=== PATIENT | male | born 1985 | race Caucasian/White ===

== ENCOUNTER 2021-01-19 13:12 | Outpatient (REF) | payer MEDICARE, MEDICAID, SELFPAY ==
[2021-01-19 15:49] LABS: MANUAL DIFF FLAG NO
[2021-01-19 15:53] LABS: Basophils Percent Auto 0.7 % (0-2); Eosinophils Absolute Auto 0.1 X10*3/uL (0.0-0.4); Eosinophils Percent Auto 1.4 % (0-4); Hematocrit 42.8 % (42-52); Hemoglobin 14.4 g/dl (14.0-18.0); Lymphocytes Absolute Auto 2.3 X10*3/uL (1.2-4.9); Lymphocytes Percent Auto 54.1 % (20-40); Mean Corpuscular HGB Conc 33.6 g/dl (31.0-36.0); Mean Corpuscular Hemoglobin 29.9 pg (27.0-33.0); Mean Platelet Volume 9.4 fL (9.4-12.4); Monocytes Absolute Auto 0.4 X10*3/uL (0.1-1.2); Monocytes Percent Auto 9.1 % (2-11); Neutrophils Absolute Auto 1.4 X10*3/uL (2.0-8.3); Neutrophils Percent Auto 34.7 % (45-73); Platelet Count 208 X10*3/uL (160-400); Red Blood Count 4.81 X10*6/uL (4.60-5.80); Red Cell Distribution Width 11.9 % (11.0-16.0); White Blood Count 4.2 X10*3/uL (4.8-10.8)
[2021-01-19 16:20] LABS: Alanine Aminotransferase 17 U/L (0-40); Alkaline Phosphatase 56 U/L (39-117); Anion Gap 14 (12-20); Aspartate Amino Transferase 18 U/L (5-37); Bilirubin Total 1.4 mg/dL (0.0-1.0); Blood Urea Nitrogen 13 mg/dL (9-16); Calcium 9.3 mg/dL (8.4-10.2); Carbon Dioxide 28 mmol/L (22-29); Chloride 103 mmol/L (96-108); Estimated Glomerular Filt Rate > 60; Glucose Random 88 mg/dL (60-115); Potassium 4.3 mmol/L (3.3-5.1); Sodium 141 mmol/L (135-145)
[2021-01-19 16:39] LABS: Thyroid Stimulating Hormone 0.97 uIU/mL (0.32-4.0)
[2021-01-20 14:16] LABS: H Pylori Breath Test NOT DETECTED (NOT DETECTED)
[2021-01-22 21:47] LABS: Transglutaminase IgA 1 U/mL
[2021-01-27 21:52] LABS: Endomysial IgA Antibody Negative (Negative)
== END 2021-01-19 13:13 | disposition home or self-care (01) ==
LOC: HO.LAB 13:12
PROVIDERS: Visit Provider Physician Assistant
DX: R19.7 Diarrhea, unspecified (principal); R74.01 Elevation of levels of liver transaminase levels; R10.11 Right upper quadrant pain; R11.0 Nausea; K58.9 Irritable bowel syndrome, unspecified; K59.09 Other constipation; F17.200 Nicotine dependence, unspecified, uncomplicated
CPT/HCPCS: 36415; 80053; 83013; 83516; 84443; 85025; 86255; 86256; 99212

== ENCOUNTER → 2021-02-24 09:21 | Outpatient (BNVA) | payer MEDICARE, MEDICAID, SELFPAY | PROVIDERS: PCP Internal Medicine; Visit Provider Physician Assistant | DX: Z13.89 Encounter for screening for other disorder (principal) | CPT/HCPCS: Q3014 ==

== ENCOUNTER 2021-05-28 09:22 | Outpatient (REF) | payer OTHER, SELFPAY ==
--- NOTE | ~2021-05-28 | FL_ITS ---
EXAMINATION: FL BARIUM SWALLOW CLINICAL INFORMATION: Nausea. COMPARISON: None TECHNIQUE: Barium swallow examination was performed using fluoroscopic evaluation in addition to multiple fluoroscopic spot views. The patient was imaged both upright and prone and using both thick and thin sulfate along with effervescent granules. Fluoroscopy time: 2.3 minutes DAP: 8.142 Gycm2 Images: 67 FINDINGS: Following oral administration of thick barium and barium-coated turkey in the upright view, there is normal propagation of the bolus from the oral cavity through the pharynx, esophagus into the stomach without any evidence of obstruction, narrowing or stricture. No retention of barium is seen in the valleculae or piriform sinuses. On oral administration of thin barium in the prone lying position, there is good distention of the esophagus without any intraluminal filling defect. There is a small hiatal hernia with mild gastroesophageal reflux into the distal esophagus. FL/FL barium swallow IMPRESSION: Small hiatal hernia with mild gastroesophageal reflux. Otherwise unremarkable barium swallow.
[2021-05-28 10:37] LABS: Basophils Percent Auto 0.5 % (0-2); Eosinophils Percent Auto 1.1 % (0-4); Hematocrit 43.7 % (42-52); Hemoglobin 15.4 g/dl (14.0-18.0); Lymphocytes Absolute Auto 2.3 X10*3/uL (1.2-4.9); Lymphocytes Percent Auto 61.6 % (20-40); MANUAL DIFF FLAG SCAN; Mean Corpuscular HGB Conc 35.2 g/dl (31.0-36.0); Mean Corpuscular Hemoglobin 30.5 pg (27.0-33.0); Mean Corpuscular Volume 86.5 fL (80-98); Mean Platelet Volume 9.3 fL (9.4-12.4); Monocytes Absolute Auto 0.4 X10*3/uL (0.1-1.2); Monocytes Percent Auto 9.5 % (2-11); Neutrophils Percent Auto 27.3 % (45-73); Platelet Count 199 X10*3/uL (160-400); Red Blood Count 5.05 X10*6/uL (4.60-5.80); Red Cell Distribution Width 11.9 % (11.0-16.0); SCAN SMEAR FLAG 1; White Blood Count 3.8 X10*3/uL (4.8-10.8)
[2021-05-28 10:45] LABS: Ammonia 33 umol/L (13-55)
[2021-05-28 10:54] LABS: Alanine Aminotransferase 30 U/L (0-40); Alkaline Phosphatase 47 U/L (39-117); Anion Gap 14 (12-20); Aspartate Amino Transferase 22 U/L (5-37); Bilirubin Total 1.1 mg/dL (0.0-1.0); Blood Urea Nitrogen 8 mg/dL (9-16); Calcium 9.9 mg/dL (8.4-10.2); Carbon Dioxide 27 mmol/L (22-29); Chloride 103 mmol/L (96-108); Estimated Glomerular Filt Rate > 60; Glucose Random 89 mg/dL (60-115); Potassium 5.1 mmol/L (3.3-5.1); Sodium 139 mmol/L (135-145); Total Protein 6.9 g/dL (6.5-8.0)
[2021-05-28 10:55] LABS: SLIDE REVIEW VERIFIED
[2021-05-28 10:58] LABS: Valproate 74.8 mcg/mL (50.0-100.0)
== END 2021-05-28 09:23 | disposition home or self-care (01) ==
LOC: HO.XRAY 09:22
PROVIDERS: Referring Provider Physician Assistant; Visit Provider Psychiatry & Neurology Child & Adolescent Psychiatry
DX: R11.0 Nausea (principal); K21.9 Gastro-esophageal reflux disease without esophagitis
CPT/HCPCS: 36415; 74220; 80053; 80164; 82140; 85025

== ENCOUNTER → 2021-06-01 14:13 | Outpatient (BNVA) | payer OTHER, SELFPAY | PROVIDERS: Visit Provider Physician Assistant | DX: K21.9 Gastro-esophageal reflux disease without esophagitis (principal); K58.9 Irritable bowel syndrome, unspecified | CPT/HCPCS: Q3014 ==

== ENCOUNTER 2021-06-08 09:45 | Outpatient (REF) | payer OTHER, SELFPAY ==
[2021-06-08 10:22] LABS: MANUAL DIFF FLAG NO
[2021-06-08 10:26] LABS: Basophils Percent Auto 0.5 % (0-2); Eosinophils Absolute Auto 0.1 X10*3/uL (0.0-0.4); Eosinophils Percent Auto 1.4 % (0-4); Hematocrit 39.8 % (42-52); Hemoglobin 14.1 g/dl (14.0-18.0); Imm Gran Abs Auto 0.02 X10*3/uL (0.00-0.03); Imm Gran Pct Auto 0.3 % (0.0-0.4); Lymphocytes Absolute Auto 3.3 X10*3/uL (1.2-4.9); Lymphocytes Percent Auto 55.6 % (20-40); Mean Corpuscular HGB Conc 35.4 g/dl (31.0-36.0); Mean Corpuscular Hemoglobin 30.5 pg (27.0-33.0); Mean Platelet Volume 9.3 fL (9.4-12.4); Monocytes Absolute Auto 0.6 X10*3/uL (0.1-1.2); Monocytes Percent Auto 9.6 % (2-11); Neutrophils Absolute Auto 1.9 X10*3/uL (2.0-8.3); Neutrophils Percent Auto 32.6 % (45-73); Platelet Count 201 X10*3/uL (160-400); Red Blood Count 4.63 X10*6/uL (4.60-5.80); Red Cell Distribution Width 11.5 % (11.0-16.0); White Blood Count 5.9 X10*3/uL (4.8-10.8)
== END 2021-06-08 09:46 | disposition home or self-care (01) ==
LOC: HO.LAB 09:45
PROVIDERS: Ophthalmology; PCP Internal Medicine; Visit Provider Psychiatry & Neurology Child & Adolescent Psychiatry
DX: F31.2 Bipolar disorder, current episode manic severe with psychotic features (principal)
CPT/HCPCS: 36415; 85025

== ENCOUNTER 2021-07-23 14:41 | Outpatient (REF) | payer OTHER, SELFPAY ==
[2021-07-23 16:03] LABS: MANUAL DIFF FLAG NO
[2021-07-23 16:06] LABS: Ammonia 25 umol/L (13-55)
[2021-07-23 16:14] LABS: Estimated Average Glucose 91 mg/dL; Hemoglobin A1c % 4.8 %
[2021-07-23 16:22] LABS: Alanine Aminotransferase 30 U/L (0-40); Albumin Level 4.6 g/dL (3.5-5.0); Alkaline Phosphatase 52 U/L (39-117); Anion Gap 12 (12-20); Aspartate Amino Transferase 19 U/L (5-37); Bilirubin Total 1.6 mg/dL (0.0-1.0); Blood Urea Nitrogen 12 mg/dL (9-16); Calcium 9.6 mg/dL (8.4-10.2); Carbon Dioxide 28 mmol/L (22-29); Chloride 108 mmol/L (96-108); Estimated Glomerular Filt Rate > 60; Glucose Random 99 mg/dL (60-115); Potassium 4.8 mmol/L (3.3-5.1); Sodium 143 mmol/L (135-145); Total Protein 6.5 g/dL (6.5-8.0)
[2021-07-23 16:27] LABS: Eosinophils Absolute Auto 0.1 X10*3/uL (0.0-0.4); Eosinophils Percent Auto 2.3 % (0-4); Hematocrit 45.1 % (42-52); Hemoglobin 15.1 g/dl (14.0-18.0); Lymphocytes Absolute Auto 1.7 X10*3/uL (1.2-4.9); Lymphocytes Percent Auto 43.1 % (20-40); Mean Corpuscular HGB Conc 33.5 g/dl (31.0-36.0); Mean Corpuscular Hemoglobin 30.6 pg (27.0-33.0); Mean Corpuscular Volume 91.5 fL (80-98); Mean Platelet Volume 9.4 fL (9.4-12.4); Monocytes Absolute Auto 0.4 X10*3/uL (0.1-1.2); Monocytes Percent Auto 10.3 % (2-11); Neutrophils Absolute Auto 1.7 X10*3/uL (2.0-8.3); Neutrophils Percent Auto 43.3 % (45-73); Platelet Count 219 X10*3/uL (160-400); Red Blood Count 4.93 X10*6/uL (4.60-5.80); Red Cell Distribution Width 11.9 % (11.0-16.0)
[2021-07-23 16:33] LABS: Valproate < 2.0 mcg/mL (50.0-100.0)
== END 2021-07-23 14:42 | disposition home or self-care (01) ==
LOC: HO.LAB 14:41
PROVIDERS: PCP Internal Medicine; Visit Provider Psychiatry & Neurology Child & Adolescent Psychiatry
DX: F31.2 Bipolar disorder, current episode manic severe with psychotic features (principal); Z79.899 Other long term (current) drug therapy
CPT/HCPCS: 36415; 80053; 80164; 82140; 83036; 85025

== ENCOUNTER → 2022-04-25 13:00 | Outpatient (BNVA) | payer OTHER, SELFPAY | PROVIDERS: PCP Internal Medicine; Visit Provider Nurse Practitioner Family | DX: G47.20 Circadian rhythm sleep disorder, unspecified type (principal); F31.9 Bipolar disorder, unspecified | CPT/HCPCS: 99202 ==

== ENCOUNTER 2023-01-11 09:14 | Outpatient (REF) | payer OTHER, SELFPAY ==
[2023-01-11 11:22] LABS: MANUAL DIFF FLAG NO
[2023-01-11 11:45] LABS: Hematocrit 45.3 % (42.0-52.0); Hemoglobin 15.1 g/dl (14.0-18.0); Mean Corpuscular HGB Conc 33.3 g/dl (31.0-36.0); Mean Corpuscular Hemoglobin 29.6 pg (27.0-33.0); Mean Corpuscular Volume 88.8 fL (80.0-98.0); White Blood Count 4.8 X10*3/uL (4.8-10.8)
[2023-01-11 11:46] LABS: Basophils Percent Auto 0.6 % (0-2); Eosinophils Absolute Auto 0.1 X10*3/uL (0.0-0.4); Eosinophils Percent Auto 2.5 % (0-4); Imm Gran Abs Auto 0.01 X10*3/uL (0.00-0.03); Imm Gran Pct Auto 0.2 % (0.0-0.4); Lymphocytes Absolute Auto 2.5 X10*3/uL (1.2-4.9); Lymphocytes Percent Auto 52.2 % (20-40); Mean Platelet Volume 9.7 fL (9.4-12.4); Monocytes Absolute Auto 0.5 X10*3/uL (0.1-1.2); Monocytes Percent Auto 9.6 % (2-11); Neutrophils Absolute Auto 1.7 x10*3/uL (2.0-8.3); Neutrophils Percent Auto 34.9 % (45-73); Platelet Count 223 X10*3/uL (160-400); Red Cell Distribution Width 11.9 % (11.0-16.0)
[2023-01-11 11:58] LABS: Alanine Aminotransferase 23 U/L (0-40); Albumin Level 4.5 g/dL (3.5-5.0); Alkaline Phosphatase 64 U/L (39-117); Anion Gap 10 (12-20); Aspartate Amino Transferase 23 U/L (5-37); Bilirubin Total 1.5 mg/dL (0.0-1.0); Blood Urea Nitrogen 11 mg/dL (9-16); Carbon Dioxide 29 mmol/L (22-29); Chloride 105 mmol/L (96-108); Cholesterol 179 mg/dL; Estimated Glomerular Filt Rate > 60; Glucose Fasting 100 mg/dL (60-99); HDL Cholesterol 60 mg/dL; LDL Cholesterol Calculated 101 mg/dl; Potassium 4.6 mmol/L (3.3-5.1); Sodium 139 mmol/L (135-145); Triglycerides 93 mg/dL
== END 2023-01-11 09:15 | disposition home or self-care (01) ==
LOC: HO.HMGCLDS 09:14
PROVIDERS: PCP Internal Medicine; Visit Provider Internal Medicine
DX: Z00.01 Encounter for general adult medical examination with abnormal findings (principal); D70.9 Neutropenia, unspecified; F31.9 Bipolar disorder, unspecified; G47.9 Sleep disorder, unspecified
CPT/HCPCS: 36415; 80053; 80061; 84443; 85025

== ENCOUNTER 2023-05-24 11:59 | Outpatient (AMB) | payer OTHER, SELFPAY ==
--- NOTE | 2023-05-24 12:09 | MHC.PC.OV ---
Vital Signs 05/24/23 12:10 Height 6 ft Weight 163 lb BMI 22.1 BP 144/78 H Blood Pressure Location Rt brachial Position Sitting Pulse 88 Pulse Source Pulse Oximeter Pulse Oximetry (%) 98 Oxygen Delivery Method Room Air Intake Visit Reasons: pain in hip area on right side Allergies penicillin V Allergy (Unknown, Verified 05/24/23 12:10) anaphylaxis Sulfa (Sulfonamide Antibiotics) Allergy (Unknown, Verified 05/24/23 12:10) fixed drug eruption Medication List - Last Reconciled 05/24/23 by Vipul Duran MD acetaminophen (Tylenol) 325 mg PO QID PRN clonazepam 0.5 mg PO TID PRN [famotidine 10 mg PO DAILY PRN] fluticasone propionate 50 mcg/actuation (Flonase Allergy Relief) 1 spray intranasal DAILY 30 days lactase (Lactaid) 3,000 units PO QID PRN [multivitamin 325 mg PO DAILY] [peppermint oil 200 mg PO DIRECTED] venlafaxine ER 37.5 mg PO DAILY Tobacco use date assessed: 05/24/23 Dental Screening Dental Screen Date: 05/24/23 Did you have a dental visit in the last 12 months?: Yes Did you have a dental problem in the last 6 months where you did not have access to dental care?: No Was dental information given to patient?: No HPI pain in hip area on right side HPI Details Patient is 38-year-old gentlemen who is complaining of pain right side of his lower back off and on when he is more active and then it gets better At this point he does not have any pain. I have ordered physical therapy for him he might benefit from that. He is requesting a refill on Flonase nasal spray which I have sent for him. He is talking about some new procedure about reversible vesectomy with the help of some injectable He will do some research on it and will get back to me [facility] Medical History Deviated septum IBS (irritable bowel syndrome) Nausea Surgical History History of tonsillectomy Family History Paternal Grandfather Prostate cancer Paternal Grandmother Colon cancer Other Mental health disorder Substance use disorder Social History Household Members: None Housing: Apartment Alcohol intake: current Alcohol intake frequency: holidays/special occasions only Patient Tobacco Use Status: Former Tobacco user (20 years ago ) Tobacco use type: Cigarette e-Cigarette/Vaping Use: Never Used Substance Use Type: Marijuana service: No Current occupational status: disabled Cognitive needs: No Hearing needs: No Vision needs: No Questionnaire PHQ-9 Over the last 2 weeks, how often have you been bothered by any of the following problems? 1. Little interest or pleasure in doing things: not at all 2. Feeling down, depressed, or hopeless: several days 3. Trouble falling or staying asleep, or sleeping too much: several days 4. Feeling tired or having little energy: several days 5. Poor appetite or overeating: several days 6. Feeling bad about yourself - or that you are a failure or have let yourself or your family down: not at all 7. Trouble concentrating on things, such as reading the newspaper or watching television: more than half the days 8. Moving or speaking so slowly that other people could have noticed. Or the opposite - being so fidgety or restless that you have been moving around a lot more than usual: more than half the days 9. Thoughts that you would be better off or of hurting yourself in some way: not at all Total score: 8 Depression Screening Interpretation: Negative 09805 - PHQ-9 Billing: Yes Source: Developed by Drs. Reggie Pavon, Edita Casanova, Garcia De Leon and colleagues, with an educational matt from [employer]. Thrive Questionnaire Date Thrive assessed: 05/24/23 I am a: Patient What is your living situation today?: I have a steady place to live Within the past 12 months, did the food you bought not last and you didn't have the money to get more?: Never true Within the past 12 months, did you worry whether your food would run out before you got money to buy more?: Never true Do you have trouble paying for medicines?: No Do you have trouble getting transportation to medical appointments?: No Do you have trouble paying your heating and electricity bill?: No Do you have trouble taking care of your child, family member or friend?: No Do you have trouble with day-to-day activities such as bathing, preparing meals, shopping, managing finances, etc.?: No Are you currently unemployed and looking for a job?: No Are you interested in more education?: No AUDIT C Alcohol Use Questionnaire (AUDIT-C) 1. How often do you have a drink containing alcohol?: 2-4 times a month 2. How many drinks containing alcohol do you have on a typical day when you are drinking?: 1 or 2 3. How often do you have six or more drinks on one occasion?: Never Total Score: 2 Score Reviewed/Action Taken: Yes CRIS-7 AMB Questionnaire CRIS-7 Date CRIS - 7 assessed: 05/24/23 Feeling nervous, anxious, or on edge: 2 = More than half the days Not being able to stop or control worryin = More than half the days Worrying too much about different things: 2 = More than half the days Trouble relaxin = More than half the days Being so restless that it is hard to sit still: 1 = Several days Becoming easily annoyed or irritable: 1 = Several days Feeling afraid as if something awful might happen: 0 = Not at all Total CRIS-7 score (0-4 normal; 5-9 mild; 10-14 moderate; 15-21 severe): 10 Source: Developed by Drs. Reggie Pavon, Edita Casanova, Garcia De Leon and colleagues, with an educational matt from [employer]. CRIS-7 Assessment Billing CRIS-7 Assessment Tool: CRIS-7 Assessment 03469 Review of Systems Const All systems reviewed & are unremarkable except as noted in HPI and below Physical exam (Primary Care) Vital Signs: Last Vital Signs Pulse 88 05/24/23 12:10 BP 144/78 H 05/24/23 12:10 Pulse Ox 98 05/24/23 12:10 Oxygen Delivery Method Room Air 05/24/23 12:10 BMI result Body Mass Index 22.1 Tobacco/Smoking Status: Tobacco use Status Tobacco use date assessed 05/24/23 05/24/23 12:10 Patient Tobacco Use Status Former Tobacco user (20 05/24/23 12:10 years ago ) Tobacco use type Cigarette 05/24/23 12:10 e-Cigarette/Vaping Use Never Used 05/24/23 12:10 PHQ-9: PHQ-9 Score PHQ-9: Total score 8 05/24/23 12:42 Depression Screening Interpretation: Negative Thrive Assessment: Date of Thrive Assessment Date Thrive assessed 05/24/23 05/24/23 12:42 Const General: no acute distress Orientation/consciousness: patient oriented x3 Eyes General: appearance normal, both eyes and all related structures Resp Effort & Inspection: normal respiratory effort and able to speak in complete sentences Auscultation: clear to auscultation bilaterally Back/Spine/Pelvis Back/spine/pelvis image: 1. That is where patient is pointing when he has a pain Neuro General: patient oriented x3 Psych Mental Status: mental status grossly normal Assessment and Plan Assessment & Plan (1) Lower back pain: Code(s): M54.50 - Low back pain, unspecified (2) Chronic nasal congestion: Code(s): R09.81 - Nasal congestion Plan Patient is 38-year-old gentlemen who is complaining of pain right side of his lower back off and on when he is more active and then it gets better At this point he does not have any pain. I have ordered physical therapy for him he might benefit from that. He is requesting a refill on Flonase nasal spray which I have sent for him. He is talking about some new procedure about reversible vesectomy with the help of some injectable He will do some research on it and will get back to me Orders: Orders PT Evaluation and Treatment Today M54.50 - Low back pain, unspecified Medications: Refilled fluticasone propionate 50 mcg/actuation (Flonase Allergy Relief) administer into each nostril 1 spray intranasal DAILY 16 grams 2RF 30 days Coding Level of Care Code Est Pt Level 3 (35378) Diagnoses Lower back pain M54.50 Chronic nasal congestion R09.81 Additional Codes CRIS-7 Assessment Billing - CRIS-7 Assessment Tool: CRIS-7 Assessment 17488 ([id number])
[2023-05-24 12:10] VITALS: BP 144/78; PULSE 88; O2SAT 98; BMI 22.1
== END 2023-05-24 13:27 | disposition home or self-care (01) ==
PROVIDERS: PCP Internal Medicine; Visit Provider Internal Medicine
DX: M54.50 Low back pain, unspecified (principal); R09.81 Nasal congestion
CPT/HCPCS: 99213

== ENCOUNTER 2023-06-27 08:34 | Outpatient (AMB) | payer OTHER, SELFPAY ==
--- NOTE | 2023-06-27 08:37 | MHC.PC.OV ---
Vital Signs 06/27/23 08:38 Height 6 ft Weight 154 lb BMI 20.9 BP 134/82 Blood Pressure Location Lt brachial Position Sitting Pulse 93 Pulse Source Pulse Oximeter Pulse Oximetry (%) 98 Oxygen Delivery Method Room Air Intake Visit Reasons: Medical Concerns Allergies penicillin V Allergy (Unknown, Verified 06/27/23 08:40) anaphylaxis Sulfa (Sulfonamide Antibiotics) Allergy (Unknown, Verified 06/27/23 08:40) fixed drug eruption asprin Adverse Reaction (Intermediate, Uncoded 06/27/23 08:43) Unknown Medication List - Last Reconciled 06/27/23 by Vipul Duran MD acetaminophen (Tylenol) 325 mg PO QID PRN bismuth subsalicylate (Pepto-Bismol) 2 tabs PO Q1H PRN clonazepam 0.5 mg PO TID PRN [famotidine 10 mg PO DAILY PRN] fluticasone propionate 50 mcg/actuation (Flonase Allergy Relief) 1 spray intranasal DAILY 30 days lactase (Lactaid) 3,000 units PO QID PRN [multivitamin 325 mg PO DAILY] [peppermint oil 200 mg PO DIRECTED] venlafaxine ER 37.5 mg PO DAILY Tobacco use date assessed: 06/27/23 Dental Screening Dental Screen Date: 06/27/23 Did you have a dental visit in the last 12 months?: Yes Did you have a dental problem in the last 6 months where you did not have access to dental care?: No Was dental information given to patient?: No HPI Medical Concerns HPI Details Patient is 38-year-old gentlemen with a history of bipolar disorder seeing a psychiatrist It seems to me that patient is having mild symptoms he has pressured speech and also lose train of thought easily. Came in today to talk about his irritable bowel syndrome which has been flaring up, and he does off and on. Currently has no abdominal pain there is no fever no blood in stools. Tells me that his grandmother had colon cancer when she was 68 years old. Also complaining of pain right knee he was playing basketball last night and hurt his right knee. He is requesting a physical therapy referral which I have provided. Patient is complaining of frequency of urination which has been happening for the past 3-4 weeks. There is no blood in urine there is no discharge from the penis. He does have a family history of prostatic hypertrophy in father I have ordered urinalysis to rule out infection if his urine came back clean I have talked to him about Flomax already I will sent that and we will book and other appointment in 2 weeks to see how he is doing. [facility] Medical History Deviated septum IBS (irritable bowel syndrome) Nausea Surgical History History of tonsillectomy Family History Paternal Grandfather Prostate cancer Paternal Grandmother Colon cancer Other Mental health disorder Substance use disorder Social History Household Members: None Housing: Apartment Alcohol intake: current Alcohol intake frequency: holidays/special occasions only Patient Tobacco Use Status: Former Tobacco user (20 years ago ) Tobacco use type: Cigarette e-Cigarette/Vaping Use: Never Used Substance Use Type: Marijuana service: No Current occupational status: disabled Cognitive needs: No Hearing needs: No Vision needs: No Questionnaire Thrive Questionnaire Date Thrive assessed: 05/24/23 AUDIT C Alcohol Use Questionnaire (AUDIT-C) 1. How often do you have a drink containing alcohol?: Monthly or less 2. How many drinks containing alcohol do you have on a typical day when you are drinking?: 1 or 2 3. How often do you have six or more drinks on one occasion?: Never Total Score: 1 Score Reviewed/Action Taken: Yes CRIS-7 AMB Questionnaire CRIS-7 Date CRIS - 7 assessed: 05/24/23 Source: Developed by Drs. Reggie Pavon, Edita Casanova, Garcia De Leon and colleagues, with an educational matt from [employer]. Review of Systems Const Denies chills and Denies fever(s) ENT Denies epistaxis and Denies nasal discharge Card Denies chest pain Resp Denies chest congestion, Denies cough and Denies hemoptysis Skin/Breast Denies rash Neuro Reports no additional complaints Psych Reports no additional complaints Endo Reports no additional complaints Physical exam (Primary Care) Vital Signs: Last Vital Signs Pulse 93 06/27/23 08:38 BP 134/82 06/27/23 08:38 Pulse Ox 98 06/27/23 08:38 Oxygen Delivery Method Room Air 06/27/23 08:38 BMI result Body Mass Index 20.9 Tobacco/Smoking Status: Tobacco use Status Tobacco use date assessed 06/27/23 06/27/23 08:43 Patient Tobacco Use Status Former Tobacco user (20 06/27/23 08:43 years ago ) Tobacco use type Cigarette 06/27/23 08:43 e-Cigarette/Vaping Use Never Used 06/27/23 08:43 Thrive Assessment: Date of Thrive Assessment Date Thrive assessed 05/24/23 06/27/23 08:43 Const General: cooperative, comfortable and no acute distress Orientation/consciousness: patient oriented x3 HENMT Head: Yes normocephalic Eyes General: appearance normal, both eyes and all related structures Neck Neck: Yes supple Resp Effort & Inspection: normal respiratory effort, no cough and no stridor Cardio Rhythm: regular rhythm Heart sounds: S1 normal heart sound present and S2 normal heart sound present GI Other: Abdomen is soft nontender bowel sounds positive Skin General skin exam: turgor normal Neuro General: patient oriented x3, tone normal and moves all extremities Extrem Elbow/forearm/wrist images: 1. Side of pain, range of motion intact no swelling no skin changes Right lower extremity: no edema Left lower extremity: no edema Assessment and Plan Assessment & Plan (1) Frequency of urination: Code(s): R35.0 - Frequency of micturition (2) Knee pain, right: Code(s): M25.561 - Pain in right knee (3) IBS (irritable bowel syndrome): Comment: symptoms and consists Code(s): K58.9 - Irritable bowel syndrome without diarrhea (4) Bipolar disorder: Code(s): F31.9 - Bipolar disorder, unspecified (5) Right knee injury: Code(s): S89.91XA - Unspecified injury of right lower leg, initial encounter Plan Patient is 38-year-old gentlemen with a history of bipolar disorder seeing a psychiatrist It seems to me that patient is having mild symptoms he has pressured speech and also lose train of thought easily. Came in today to talk about his irritable bowel syndrome which has been flaring up, and he does off and on. Currently has no abdominal pain there is no fever no blood in stools. Tells me that his grandmother had colon cancer when she was 68 years old. Also complaining of pain right knee he was playing basketball last night and hurt his right knee. He is requesting a physical therapy referral which I have provided. Patient is complaining of frequency of urination which has been happening for the past 3-4 weeks. There is no blood in urine there is no discharge from the penis. He does have a family history of prostatic hypertrophy in father I have ordered urinalysis to rule out infection if his urine came back clean I have talked to him about Flomax already I will sent that and we will book and other appointment in 2 weeks to see how he is doing. Orders: Orders UA CC w/rflx Micro + Cult Today R35.0 - Frequency of micturition PT Evaluation and Treatment Today M25.561 - Pain in right knee Coding Level of Care Code Est Pt Level 4 (99703) Diagnoses Frequency of urination R35.0 Knee pain, right M25.561 IBS (irritable bowel syndrome) K58.9 Bipolar disorder F31.9 Right knee injury S89.91XA
[2023-06-27 08:38] VITALS: BP 134/82; PULSE 93; O2SAT 98; BMI 20.9
== END 2023-06-27 09:23 | disposition home or self-care (01) ==
PROVIDERS: PCP Internal Medicine; Visit Provider Internal Medicine
DX: R35.0 Frequency of micturition (principal); M25.561 Pain in right knee; K58.9 Irritable bowel syndrome, unspecified; F31.9 Bipolar disorder, unspecified; S89.91XA Unspecified injury of right lower leg, initial encounter
CPT/HCPCS: 99214

== ENCOUNTER 2023-06-27 08:59 | Outpatient (REF) | payer OTHER, SELFPAY ==
[2023-06-27 11:35] LABS: Appearance Urine Clear; Color Urine Yellow; Glucose Urine UA Negative (Negative); Leukocyte Esterase Urine Negative (Negative); Nitrite Urine Negative (Negative); Specific Gravity - Urine <= 1.005 (1.005-1.025); Urine Blood Negative (Negative); Urine Ketones Negative (Negative); Urine Protein Negative (Neg-Trace)
== END 2023-06-27 09:00 | disposition home or self-care (01) ==
LOC: HO.HMGCLDS 08:59
PROVIDERS: PCP Internal Medicine; Visit Provider Internal Medicine
DX: R35.0 Frequency of micturition (principal)
CPT/HCPCS: 81003

== ENCOUNTER 2023-09-04 11:00 | Outpatient (RCR) | payer OTHER, SELFPAY ==
--- NOTE | 2023-07-18 12:19 | MHC.PT.EP ---
[facility] [place] Office [place] Office [place] Office [address] [phone] F: [phone] F: [phone] F: [phone] F: [phone] Physical Therapy Plan of Care Date of Evaluation: 07/18/23 Date of Surgery: Diagnosis: Pain in R knee Assessment: Pt is a 38 y/o male who is referred to PT for eval and treatment of R knee pain who presents with B PFPS resulting in decreased tolerance for prolonged sitting, walking/running duration, squatting, and participating in exercise for duration secondary to decreased hip strength, functional biomechanical deficits, and pain. Pt is deemed an appropriate candidate for skilled PT services to treat his impairments and improve his function. Frequency and Duration: The patient will be seen 1x/wk x 6wks Short Term Goals: Initiate HEP Reduce baseline pain to <3/10; initial: 4/10 Mcfp Goals: [place] with HEP Improve LEFI outcome score by at least 9 points; initial: 63/80 Pt will be able to squat without difficulty; initial: moderate difficulty Pt will improve B glute Medius strength by at least 1/2 MMT; initial: R 4-/5, L 4/5 Treatment Plan: Modalities to reduce pain, spasms and effusion. Manual therapy to restore motion and function. Therapeutic exercise to improve strength and flexibility. Neuromuscular re-education for posture and balance. Therapeutic activities to return to functional activities of daily living. Electronically signed by: Jun Giles PT Please sign and return to therapist. Thank you for your referral.
--- NOTE | 2023-10-24 10:48 | MHC.PT.DC ---
[facility] [place] [facility] [place] [facility] [place] [facility] [address] Rosa Estrada [address] [phone] F: [phone] F: [phone] F: [phone] F: [phone] Physical Therapy Discharge Report Diagnosis: Pain in R knee Date of Surgery: Date of Evaluation: 07/18/23 Date of Discharge: 10/24/23 Treatments to Date: 6 Cancellations to Date: No Shows to Date: Discharge Status: Patient Elected to Stop Discharge Summary: Pt did not follow up with the end of his program; no apt in > 40 days and DC'd per attendance. Electronically signed by: Jun Giles PT. Please sign and return to therapist. Thank you for your referral.
== END 2023-10-24 10:36 | disposition home or self-care (01) ==
LOC: HO.PT 11:00
PROVIDERS: PCP Internal Medicine; Visit Provider Internal Medicine
DX: M25.561 Pain in right knee (principal)
CPT/HCPCS: 97110; 97112; 97161; 97530

== ENCOUNTER 2023-09-26 14:52 | Outpatient (AMB) | payer OTHER, SELFPAY ==
--- NOTE | 2023-09-26 14:55 | A.OFFPC_ITS ---
Vital Signs 09/26/23 15:01 Height 6 ft Weight 167 lb BMI 22.6 BP 116/60 Blood Pressure Location Rt brachial Position Sitting Pulse 68 Pulse Source Pulse Oximeter Pulse Oximetry (%) 98 Oxygen Delivery Method Room Air Intake Visit Reasons: Annual PE Allergies penicillin V Allergy (Unknown, Verified 09/26/23 14:56) anaphylaxis Sulfa (Sulfonamide Antibiotics) Allergy (Unknown, Verified 09/26/23 14:56) fixed drug eruption asprin Adverse Reaction (Intermediate, Uncoded 06/27/23 08:43) Unknown Medication List - Last Reconciled 09/26/23 by Vipul Duran MD acetaminophen (Tylenol) 325 mg PO QID PRN bismuth subsalicylate (Pepto-Bismol) 2 tabs PO Q1H PRN clonazepam 0.5 mg PO TID PRN [famotidine 10 mg PO DAILY PRN] fluticasone propionate 50 mcg/actuation (Flonase Allergy Relief) 1 spray intranasal DAILY 30 days lactase (Lactaid) 3,000 units PO QID PRN [multivitamin 325 mg PO DAILY] [peppermint oil 200 mg PO DIRECTED] tamsulosin (Flomax) 0.4 mg PO BEDTIME venlafaxine ER 37.5 mg PO DAILY Tobacco use date assessed: 09/26/23 Dental Screening Dental Screen Date: 09/26/23 Did you have a dental visit in the last 12 months?: Yes Did you have a dental problem in the last 6 months where you did not have access to dental care?: No Was dental information given to patient?: Patient has dentist HPI Annual PE HPI Details Patient is 38-year-old gentleman came in today for physical examination Patient bipolar disorder, and is currently seeing psychiatrist and is on lithium Still having difficulty sleeping at night, he was given prescription for trazodone 50 mg but patient feels that it is making him very groggy so he is taking Benadryl Also continued to drink alcohol at night that helps him calm down and go to sleep. But alcohol is causing stomach issues patient is aware of that Patient is aware that his liver enzymes are slightly off that also can be because of alcohol He will discuss it further with his psychiatrist Order for labs placed to be done fasting Patient continued to have knee pain flare-up off and on, he has gone through physical therapy He will get back me if he wants to have a physical therapy again [facility] Medical History Deviated septum Nausea IBS (irritable bowel syndrome) Surgical History History of tonsillectomy Family History Paternal Grandfather Prostate cancer Paternal Grandmother Colon cancer Other Mental health disorder Substance use disorder Social History Household Members: None Housing: Apartment Alcohol intake: current Alcohol intake frequency: holidays/special occasions only Patient Tobacco Use Status: Former Tobacco user (20 years ago ) Tobacco use type: Cigarette e-Cigarette/Vaping Use: Never Used Substance Use Type: Marijuana service: No Current occupational status: disabled Cognitive needs: No Hearing needs: No Vision needs: No Questionnaire PHQ-9 Over the last 2 weeks, how often have you been bothered by any of the following problems? 1. Little interest or pleasure in doing things: not at all 2. Feeling down, depressed, or hopeless: several days 3. Trouble falling or staying asleep, or sleeping too much: several days 4. Feeling tired or having little energy: several days 5. Poor appetite or overeating: several days 6. Feeling bad about yourself - or that you are a failure or have let yourself or your family down: not at all 7. Trouble concentrating on things, such as reading the newspaper or watching television: more than half the days 8. Moving or speaking so slowly that other people could have noticed. Or the opposite - being so fidgety or restless that you have been moving around a lot more than usual: more than half the days 9. Thoughts that you would be better off or of hurting yourself in some way: not at all Total score: 8 Depression Screening Interpretation: Negative Depression Screening Done: Yes 61654 - PHQ-9 Billing: Yes Source: Developed by Drs. Reggie Pavon, Edita Casanova, Garcia De Leon and colleagues, with an educational matt from [employer]. Thrive Questionnaire Date Thrive assessed: 05/24/23 AUDIT C Alcohol Use Questionnaire (AUDIT-C) 1. How often do you have a drink containing alcohol?: Never 3. How often do you have six or more drinks on one occasion?: Never Total Score: 0 Score Reviewed/Action Taken: Yes CRIS-7 AMB Questionnaire CRIS-7 Date CRIS - 7 assessed: 05/24/23 Source: Developed by Drs. Reggie Pavon, Edita Casanova, Garcia De Leon and colleagues, with an educational matt from [employer]. Review of Systems Const Denies chills, Denies fever(s) and Denies headache(s) Eyes Denies blurry vision ENT Denies headache(s), Denies nasal discharge, Denies nasal obstruction, Denies odynophagia and Denies sinus pain Card Denies chest pain at rest and Denies chest pain with activity Resp Denies cough and Denies hemoptysis GI Denies diarrhea, Denies odynophagia, Denies vomiting and Denies hematemesis Reports as per HPI Musc Denies abnormal gait Skin/Breast Reports as per HPI Neuro Denies Neuro-related abnormal movements, Denies Abnormal speech present, Denies abnormal gait, Denies headache(s) and Denies Sensory deficit (Neuro) Endo Reports as per HPI Luis/Lymph Reports as per HPI Aller/Immun Reports as per HPI Physical exam (Primary Care) Vital Signs: Last Vital Signs Pulse 68 09/26/23 15:01 BP 116/60 09/26/23 15:01 Pulse Ox 98 09/26/23 15:01 Oxygen Delivery Method Room Air 09/26/23 15:01 BMI result Body Mass Index 22.6 Tobacco/Smoking Status: Tobacco use Status Tobacco use date assessed 09/26/23 09/26/23 14:58 Patient Tobacco Use Status Former Tobacco user (20 09/26/23 14:58 years ago ) Tobacco use type Cigarette 09/26/23 14:58 e-Cigarette/Vaping Use Never Used 09/26/23 14:58 Depression Screening Interpretation: Negative Thrive Assessment: Date of Thrive Assessment Date Thrive assessed 05/24/23 09/26/23 14:58 Const General: cooperative, comfortable and no acute distress Orientation/consciousness: patient oriented x3 HENMT Head: Yes normocephalic and Yes atraumatic Eyes General: appearance normal, both eyes and all related structures Pupils: Equal, round and reactive pupils present EOM: EOMs intact bilaterally Neck Neck: Yes supple and No lymphadenopathy Thyroid: Thyroid normal Lymphatic: no lymphadenopathy noted Resp Effort & Inspection: normal respiratory effort and able to speak in complete sentences Auscultation: clear to auscultation bilaterally Cardio Heart sounds: S1 normal heart sound present and S2 normal heart sound present GI Palpation (GI): Soft to palpation and nontender Auscultation: normal bowel sounds General: Yes no CVA tenderness Back/Spine/Pelvis Back: no CVA tenderness Skin General skin exam: elasticity normal and turgor normal Neuro General: patient oriented x3 and gait normal Cranial nerves: Yes Equal, round and reactive pupils present Speech: No Abnormal speech present Sensory Exam: No Sensory deficit (Neuro) Coordination: tandem gait normal and Romberg test negative Extrem General: Yes normal exam except as noted and No edema Assessment and Plan Assessment & Plan (1) Encounter for general adult medical examination with abnormal findings: Code(s): Z00.01 - Encounter for general adult medical examination with abnormal findings (2) Bipolar disorder: Code(s): F31.9 - Bipolar disorder, unspecified Qualifiers: Active/Remission status: in partial remission Most recent bipolar episode type: mixed Qualified Code(s): F31.77 - Bipolar disorder, in partial remission, most recent episode mixed (3) LFT elevation: Code(s): R79.89 - Other specified abnormal findings of blood chemistry (4) Impaired fasting blood sugar: Code(s): R73.01 - Impaired fasting glucose (5) Neutropenia: Code(s): D70.9 - Neutropenia, unspecified Qualifiers: Neutropenia type: unspecified Qualified Code(s): D70.9 - Neutropenia, unspecified (6) Difficulty sleeping: Code(s): G47.9 - Sleep disorder, unspecified (7) Alcoholism: Code(s): F10.20 - Alcohol dependence, uncomplicated Plan Patient is 38-year-old gentleman came in today for physical examination Patient bipolar disorder, and is currently seeing psychiatrist and is on lithium Still having difficulty sleeping at night, he was given prescription for trazodone 50 mg but patient feels that it is making him very groggy so he is taking Benadryl Also continued to drink alcohol at night that helps him calm down and go to sleep. But alcohol is causing stomach issues patient is aware of that Patient is aware that his liver enzymes are slightly off that also can be because of alcohol He will discuss it further with his psychiatrist Order for labs placed to be done fasting Patient continued to have knee pain flare-up off and on, he has gone through physical therapy He will get back me if he wants to have a physical therapy again Orders: Orders Complete Blood Count Auto Diff Today D70.9 - Neutropenia, unspecified, F31.9 - Bipolar disorder, unspecified, G47.9 - Sleep disorder, unspecified, R73.01 - Impaired fasting glucose, R79.89 - Other specified abnormal findings of blood chemistry, Z00.01 - Encounter for general adult medical examination with abnormal findings Lipid Panel Today D70.9 - Neutropenia, unspecified, F31.9 - Bipolar disorder, unspecified, G47.9 - Sleep disorder, unspecified, R73.01 - Impaired fasting glucose, R79.89 - Other specified abnormal findings of blood chemistry, Z00.01 - Encounter for general adult medical examination with abnormal findings Comprehensive [place]. Panel Fast Today D70.9 - Neutropenia, unspecified, F31.9 - Bipolar disorder, unspecified, G47.9 - Sleep disorder, unspecified, R73.01 - Impaired fasting glucose, R79.89 - Other specified abnormal findings of blood chemistry, Z00.01 - Encounter for general adult medical examination with abnormal findings Hemoglobin A1c Today D70.9 - Neutropenia, unspecified, F31.9 - Bipolar disorder, unspecified, G47.9 - Sleep disorder, unspecified, R73.01 - Impaired fasting glucose, R79.89 - Other specified abnormal findings of blood chemistry, Z00.01 - Encounter for general adult medical examination with abnormal findings Medications: New lithium carbonate 300 mg PO BEDTIME Discontinued tamsulosin (Flomax) Discontinued Reason: Doctor's Order 0.4 mg PO BEDTIME 30 caps 0RF Coding Level of Care Code Est Pt Prev Care 40-64y(58675) Diagnoses Encounter for general adult medical examination with abnormal findings Z00.01 Bipolar disorder, in partial remission, most recent episode mixed F31.77 Active/Remission status: in partial remission Most recent bipolar episode type: mixed LFT elevation R79.89 Impaired fasting blood sugar R73.01 Neutropenia, unspecified type D70.9 Neutropenia type: unspecified Difficulty sleeping G47.9 Alcoholism F10.20
[2023-09-26 15:01] VITALS: BP 116/60; PULSE 68; O2SAT 98; BMI 22.6
== END 2023-09-26 15:26 | disposition home or self-care (01) ==
PROVIDERS: Visit Provider Internal Medicine
DX: Z00.00 Encounter for general adult medical examination without abnormal findings (principal); F31.77 Bipolar disorder, in partial remission, most recent episode mixed; D70.9 Neutropenia, unspecified; F10.20 Alcohol dependence, uncomplicated; R79.89 Other specified abnormal findings of blood chemistry; R73.01 Impaired fasting glucose; G47.9 Sleep disorder, unspecified
CPT/HCPCS: 99396

== ENCOUNTER 2023-10-02 11:36 | Outpatient (REF) | payer OTHER, SELFPAY ==
[2023-10-02 13:37] LABS: MANUAL DIFF FLAG NO
[2023-10-02 14:06] LABS: Basophils Percent Auto 0.8 % (0-2); Eosinophils Absolute Auto 0.2 X10*3/uL (0.0-0.4); Eosinophils Percent Auto 4.1 % (0-4); Hematocrit 46.4 % (42.0-52.0); Hemoglobin 15.4 g/dl (14.0-18.0); Imm Gran Abs Auto 0.01 X10*3/uL (0.00-0.03); Imm Gran Pct Auto 0.2 % (0.0-0.4); Lymphocytes Absolute Auto 1.7 X10*3/uL (1.2-4.9); Lymphocytes Percent Auto 35.4 % (20-40); Mean Corpuscular HGB Conc 33.2 g/dl (31.0-36.0); Mean Corpuscular Hemoglobin 29.9 pg (27.0-33.0); Mean Corpuscular Volume 90.1 fL (80.0-98.0); Mean Platelet Volume 9.8 fL (9.4-12.4); Monocytes Absolute Auto 0.5 X10*3/uL (0.1-1.2); Monocytes Percent Auto 9.2 % (2-11); Neutrophils Absolute Auto 2.5 x10*3/uL (2.0-8.3); Neutrophils Percent Auto 50.3 % (45-73); Platelet Count 226 X10*3/uL (160-400); Red Blood Count 5.15 X10*6/uL (4.60-5.80); Red Cell Distribution Width 12.1 % (11.0-16.0); White Blood Count 4.9 X10*3/uL (4.8-10.8)
[2023-10-02 14:07] LABS: Estimated Average Glucose 100 mg/dL; Hemoglobin A1c % 5.1 % (<6.0)
[2023-10-02 14:35] LABS: Alanine Aminotransferase 23 U/L (0-40); Albumin Level 4.8 g/dL (3.5-5.0); Alkaline Phosphatase 57 U/L (39-117); Anion Gap 10 (12-20); Aspartate Amino Transferase 25 U/L (5-37); Bilirubin Total 1.4 mg/dL (0.0-1.0); Blood Urea Nitrogen 13 mg/dL (9-16); Calcium 9.6 mg/dL (8.4-10.2); Carbon Dioxide 28 mmol/L (22-29); Chloride 107 mmol/L (96-108); Cholesterol 185 mg/dL (<200); Estimated Glomerular Filt Rate > 60; Glucose Fasting 108 mg/dL (60-99); HDL Cholesterol 70 mg/dL (>40); LDL Cholesterol Calculated 96 mg/dL (<100); Potassium 4.5 mmol/L (3.3-5.1); Sodium 140 mmol/L (135-145); Thyroid Stimulating Hormone 1.46 uIU/mL (0.32-4.0); Triglycerides 96 mg/dL (<150)
[2023-10-02 14:50] LABS: Lithium 0.37 mmol/L (0.60-1.20)
== END 2023-10-02 11:37 | disposition home or self-care (01) ==
LOC: HO.HMGCLDS 11:36
PROVIDERS: Absent Provider General Practice; PCP Internal Medicine; Visit Provider Internal Medicine
DX: Z00.01 Encounter for general adult medical examination with abnormal findings (principal); R79.89 Other specified abnormal findings of blood chemistry; R73.01 Impaired fasting glucose; D70.9 Neutropenia, unspecified; G47.9 Sleep disorder, unspecified; F31.32 Bipolar disorder, current episode depressed, moderate; Z79.899 Other long term (current) drug therapy
CPT/HCPCS: 36415; 80053; 80061; 80178; 83036; 84443; 85025

== ENCOUNTER 2024-01-12 11:47 | Outpatient (AMB) | payer OTHER, SELFPAY ==
--- NOTE | 2024-01-12 12:18 | MHC.OFFWIV ---
Intake Vital Signs 01/12/24 12:20 Weight 162 lb BP 114/78 Blood Pressure Location Lt brachial Position Sitting Pulse 86 Pulse Source Pulse Oximeter Pulse Oximetry (%) 98 Oxygen Delivery Method Room Air Intake Visit Reasons: LT knee injury Intake Note: Patient here for left knee injury while playing volleyball. pt states he dislocated it and when he went to lift himself up it popped back into place. Patient Tobacco Use Status: Former Tobacco user (20 years ago ) Allergies penicillin V Allergy (Unknown, Verified 01/12/24 12:22) anaphylaxis Sulfa (Sulfonamide Antibiotics) Allergy (Unknown, Verified 01/12/24 12:22) fixed drug eruption asprin Adverse Reaction (Intermediate, Uncoded 01/12/24 12:22) Unknown Do you need a note to return to daycare/school/sports/work: No HPI HPI Comments History of Present Illness Details This is a 38-year-old male who presented to the walk-in clinic complaining of left knee pain x2 days. Patient states he dislocated his knee while playing volleyball but it popped back into place. He has been having left knee pain and swelling since then. Patient reports difficulty with ambulation and bearing weight because of the pain; however, he states that the pain is slightly improving. He denies any numbness/weakness/paresthesias of his left lower extremity. [facility] Medical History Deviated septum Nausea IBS (irritable bowel syndrome) Surgical History History of tonsillectomy Family History Paternal Grandfather Prostate cancer Paternal Grandmother Colon cancer Other Mental health disorder Substance use disorder Social History Household Members: None Housing: Apartment Alcohol intake: current Alcohol intake frequency: holidays/special occasions only Patient Tobacco Use Status: Former Tobacco user (20 years ago ) Tobacco use type: Cigarette e-Cigarette/Vaping Use: Never Used Substance Use Type: Marijuana service: No Current occupational status: disabled Cognitive needs: No Hearing needs: No Vision needs: No Review of Systems Const All systems reviewed & are unremarkable except as noted in HPI and below Reports no additional complaints Eyes Reports no additional complaints ENT Reports no additional complaints Card Reports no additional complaints Resp Reports no additional complaints GI Reports no additional complaints Reports no additional complaints Musc Reports no additional complaints Skin/Breast Reports system reviewed and no additional complaints, except as documented Neuro Reports no additional complaints Psych Reports no additional complaints Endo Reports no additional complaints Luis/Lymph Reports no additional complaints Aller/Immun Reports no additional complaints Physical Exam Vital Signs: Last Vital Signs Pulse 86 01/12/24 12:20 BP 114/78 01/12/24 12:20 Pulse Ox 98 01/12/24 12:20 Oxygen Delivery Method Room Air 01/12/24 12:20 Const Other: Vital signs reviewed. Constitutional: Non-toxic appearing. No acute distress. Well-developed and well-nourished. HEENT: Normocephalic and atraumatic. Skin: Warm and dry. No rashes or lesions noted. Neck: Full and painless range of motion. No cervical lymphadenopathy. Cardio: Regular rate. No lower extremity edema. No JVD. Pulmonary: No respiratory distress. No accessory muscle usage. Gastrointestinal: Soft, nontender, and nondistended in all 4 quadrants. Musculoskeletal: There is swelling/effusion on the left knee without focal/bony tenderness to palpation. Neuro: Alert and oriented x4. Cranial nerves 2-12 grossly intact. No focal deficits appreciated. Psych: Normal mood and affect. Assessment & Plan Assessment & Plan (1) Closed patellar dislocation: Code(s): S83.006A - Unspecified dislocation of unspecified patella, initial encounter Qualifiers: Encounter type: initial encounter Laterality: left Qualified Code(s): S83.005A - Unspecified dislocation of left patella, initial encounter Plan: This is a 38-year-old male who presented to the walk-in clinic complaining of left knee pain/swelling following an injury that occurred 2 nights ago around 6:00 p.m. Patient felt as though his knee ?dislocated? but then popped back in. Patient has been suffering from left knee pain and swelling since then. Patient is unable to extend his knee completely and he reports increased pain with ambulation/pressure. I obtained an x-ray of the left knee, which shows dislocation of his left patella. I spoke with employment law specialist at [facility] who recommended reduction under sedation in the emergency room versus lidocaine injection and reduction via knee extension at the walk-in clinic. Given the extent of patient's swelling as well as muscle tightness, the patient and I decided it would be best for him to proceed to the emergency room for reduction under sedation. The patient will proceed directly to the emergency room via private car and states that he has a friend who can pick him up after his emergency room visit. Orders: Referrals Orthopedics Referral S83.006A - Unspecified dislocation of unspecified patella, initial encounter Coding Level of Care Code Est Pt Level 3 (88636) Diagnoses Closed dislocation of left patella, initial encounter S83.005A Encounter type: initial encounter Laterality: left
[2024-01-12 12:20] VITALS: BP 114/78; PULSE 86; O2SAT 98
== END 2024-01-12 15:22 | disposition home or self-care (01) ==
PROVIDERS: PCP Internal Medicine; Visit Provider Physician Assistant Medical
DX: S83.005A Unspecified dislocation of left patella, initial encounter (principal)
CPT/HCPCS: 99213

== ENCOUNTER 2024-01-12 13:12 | Outpatient (REF) | payer OTHER, SELFPAY ==
--- NOTE | ~2024-01-12 | XR_ITS ---
EXAMINATION: XR KNEE, LEFT CLINICAL INFORMATION: Pain. Injury. COMPARISON: None available. TECHNIQUE: Four views of the left knee. FINDINGS: Bones of the left knee have normal alignment. Joint spaces are maintained. No arthritic deformity. No acute fracture or subluxation. Moderate joint effusion is present. XR/XR knee LT 4V IMPRESSION: * No acute fracture or malalignment. * Moderate knee joint effusion is present.
== END 2024-01-12 13:13 | disposition home or self-care (01) ==
LOC: HO.HMGCX 13:12
PROVIDERS: PCP Internal Medicine; Visit Provider Physician Assistant Medical
DX: S89.92XA Unspecified injury of left lower leg, initial encounter (principal)
CPT/HCPCS: 73564

== ENCOUNTER 2024-01-12 15:27 | Emergency (ER) | payer OTHER, SELFPAY ==
--- NOTE | 2024-01-12 15:32 | ED_ITS ---
HPI - Extremity Injury (Lower) General Chief Complaint: Extremity Injury, Lower Stated Complaint: L knee pain Time Seen by Provider: 01/12/24 15:58 Source: patient and EMS Mode of arrival: EMS Limitations: no limitations History of Present Illness HPI Narrative: 38 yr Old male with history of bipolar disorder presents to the ER with complaints of left knee pain. Patient reports 2 days ago he was playing volleyball when he misstepped. He felt like his knee popped. He then laid on the ground and rolled his body feeling like his knee went back in place. Since then continued swelling/pain. Went to urgent care today who had concern for knee dislocation who referred patient in to the ER. He reports some pain with range of motion and some limited range of motion but denies any associated weakness, numbness or tingling of the extremity. No additional injury. Related Data Home Medications Medication Instructions Recorded Confirmed acetaminophen 325 mg capsule 325 mg PO QID PRN Headache 04/25/22 09/26/23 (Tylenol) clonazepam 0.5 mg tablet 0.5 mg PO TID PRN anxiety 04/25/22 09/26/23 lactase 3,000 unit tablet (Lactaid) 3,000 unit PO QID PRN Lactose 04/25/22 09/26/23 Intolerance famotidine 10 mg PO DAILY PRN Acid Reflux 05/04/22 09/26/23 multivitamin 325 mg PO DAILY 05/04/22 09/26/23 peppermint oil 200 mg PO DIRECTED 05/04/22 09/26/23 bismuth subsalicylate 262 mg 2 tab PO Q1H PRN 06/27/23 06/27/23 chewable tablet (Pepto-Bismol) lithium carbonate 300 mg capsule 300 mg PO BID 01/12/24 trazodone 50 mg tablet 50 mg PO BEDTIME 01/12/24 Previous Rx's Medication Instructions Recorded fluticasone propionate 50 1 spray intranasal DAILY 30 days 09/19/23 mcg/actuation nasal #16 grams spray,suspension (Flonase Allergy Relief) Allergies Allergy/AdvReac Type Severity Reaction Status Date / Time penicillin V Allergy Unknown anaphylaxis Verified 01/12/24 12:22 Sulfa (Sulfonamide Allergy Unknown fixed drug Verified 01/12/24 12:22 Antibiotics) eruption asprin AdvReac Intermediate Unknown Uncoded 01/12/24 12:22 Review of Systems Review of Systems: Yes all other systems are reviewed and are negative Constitutional: Constitutional: Reports no additional constitutional complaints, Denies body ache(s), Denies chills, Denies fever(s), Denies headache(s) and Denies weakness Eyes: Eyes: Reports no additional eye complaints and Denies change in vision ENT: Reports system reviewed and no additional complaints, except as documented, Denies dizziness, Denies headache(s), Denies nasal congestion, Denies nasal discharge and Denies neck pain Cardiovascular: Cardiovascular: Reports no additional cardiovascular complaints, Denies chest pain, Denies leg edema and Denies dyspnea Respiratory: Respiratory: Reports no additional respiratory complaints, Denies cough and Denies dyspnea Gastrointestinal: Gastrointestinal: Reports no additional gastrointestinal complaints, Denies abdominal pain, Denies diarrhea, Denies nausea and Denies vomiting Genitourinary: Genitourinary: Denies urinary incontinence Musculoskeletal: Musculoskeletal: Reports no additional musculoskeletal complaints, Denies back pain, Reports arthralgias, Reports joint swelling, Reports limited range of motion, Denies neck pain, Denies numbness and Denies tingling Integumentary/Breasts: Skin/Breast: Reports system reviewed and no additional complaints, except as docu and Denies rash Neurologic: Reports system reviewed and no additional complaints, except as documented, Denies Abnormal speech present, Denies dizziness, Denies headache(s), Denies numbness, Denies tingling and Denies weakness PMFSH Past Medical History Attestation statement: The following information was validated with the patient. Source: old records reviewed and nursing notes reviewed Medical History Deviated septum Nausea IBS (irritable bowel syndrome) Surgical History History of tonsillectomy Family History Family History Paternal Grandfather Prostate cancer Paternal Grandmother Colon cancer Other Mental health disorder Substance use disorder Social History Social History Household Members: None Housing: Apartment Alcohol intake: current Alcohol intake frequency: holidays/special occasions only Patient Tobacco Use Status: Former Tobacco user (20 years ago ) Tobacco use type: Cigarette e-Cigarette/Vaping Use: Never Used Substance Use Type: Marijuana Advance Directives: No Advance Directives Information Provided: No service: No Current occupational status: disabled Cognitive needs: No Hearing needs: No Vision needs: No Physical Exam Vital Signs: Vital Signs: Last Vital Signs Temp 98.7 F 01/12/24 17:52 Pulse 82 01/12/24 17:52 Resp 18 01/12/24 17:52 BP 140/80 H 01/12/24 17:52 Pulse Ox 98 01/12/24 17:52 O2 Del Method Room Air 01/12/24 17:52 BMI result Body Mass Index 20.5 Const: General: cooperative, healthy appearing, comfortable and no acute distress Orientation/consciousness: patient oriented x3 Limitations: no limitations HEENT: Head: Yes normal to inspection Ears: hearing grossly normal bilaterally General nose exam: Normal external nose present Face and sinus: Yes normal facial exam Mouth: Normal oral and palatal mucosa present Throat: Yes posterior oropharynx normal Eyes: General: appearance normal, both eyes and all related structures Pupils: Equal, round and reactive pupils present Neck: Neck: Yes normal visual inspection Chest: Chest palpation & inspection: normal inspection of the chest Resp: Effort & Inspection: normal respiratory effort Auscultation: clear to auscultation bilaterally Cardio: Rate: regular rate Rhythm: regular rhythm Peripheral pulses: Peripheral pulses 2+ throughout GI: Inspection: Yes normal to inspection Palpation (GI): Soft to palpation and nontender Auscultation: normal bowel sounds Back/Spine/Pelvis: Thoracic/Lumbar Spine: thoracic and lumbar spine normal to inspection Skin: General skin exam: no rashes or lesions noted Neuro: General: patient oriented x3, no focal motor deficits and normal sensation to monofilament Cranial nerves: Yes Equal, round and reactive pupils present Cognition (Neuro): normal cognition Speech: No Abnormal speech present Gait exam (Neuro): Normal gait present Motor exam (neuro): 5/5 motor strength present throughout Extrem: Other: Patient has a left knee moderate effusion. He has palpable DP and PT pulses with full active and passive range of motion of the left foot and ankle. He has mild tenderness over the anterior knee but is not significantly tender. He is able to extend the knee completely. He does have some limited flexion of the left knee. Course Course Course Narrative: This is an RME: Additional HPI, ROS, PE not included below will be deferred to primary provider. Patient is a 38-year-old male who presents emergency department coming [place] [facility] [place]. Had XR obtained for evaluation of left knee pain after an injury greater than 48 hours ago. Unable to fully extend the knee. Advised he has a medial superior patellar dislocation, [place] [facility] who recommended to transfer patient to ED as he may require sedation for reduction. Reevaluation(s) Reevaluation #1: After the arthrocentesis the left knee the patient was able to fully extend and flex the knee with no difficulty. He tolerated the procedure well. He was placed in an Reginaldo wrap and given crutches for home Medications Administered Discontinued Medications Generic Name Dose Route Start Last Admin Trade Name Freq PRN Reason Stop Dose Admin Lidocaine HCl 2 ml 01/12/24 16:45 01/12/24 16:51 Lidocaine Hcl 1 % Mpf 2 Ml Vial INFILTRATI 01/12/24 16:46 2 ml ONCE ONE Administration Lidocaine HCl 2 ml 01/12/24 16:45 01/12/24 16:51 Lidocaine Hcl 1 % Mpf 2 Ml Vial INFILTRATI 01/12/24 16:46 2 ml ONCE ONE Administration Lidocaine HCl 2 ml 01/12/24 16:45 01/12/24 16:51 Lidocaine Hcl 1 % Mpf 2 Ml Vial INFILTRATI 01/12/24 16:46 2 ml ONCE ONE Administration Lidocaine HCl 2 ml 01/12/24 16:45 01/12/24 16:51 Lidocaine Hcl 1 % Mpf 2 Ml Vial INFILTRATI 01/12/24 16:46 2 ml ONCE ONE Administration Lidocaine HCl 2 ml 01/12/24 16:46 01/12/24 16:51 Lidocaine Hcl 1 % Mpf 2 Ml Vial INFILTRATI 01/12/24 16:47 2 ml ONCE ONE Administration Medical Decision Making Medical Decision Making MDM Narrative: 38 yr Old male with history of bipolar disorder presents to the ER with complaints of left knee pain. Patient reports 2 days ago he was playing volleyball when he misstepped. He felt like his knee popped. He then laid on the ground and rolled his body feeling like his knee went back in place. Since then continued swelling/pain. Went to urgent care today who had concern for knee dislocation who referred patient in to the ER. He reports some pain with range of motion and some limited range of motion but denies any associated weakness, numbness or tingling of the extremity. No additional injury. Patient has a left knee moderate effusion. He has palpable DP and PT pulses with full active and passive range of motion of the left foot and ankle. He has mild tenderness over the anterior knee but is not significantly tender. He is able to extend the knee completely. He does have some limited flexion of the left knee. Reviewed x-ray done outpatient which shows a moderate effusion but I do not appreciate any dislocation or fracture. I will speak to on-call orthopedic Differential Diagnosis Differential Diagnoses: The differential diagnosis associated with the presentation includes sprain, strain, effusion low suspicion for fracture, dislocation, or vascular injury Admission/Observation Consideration of admission/observation: Escalation of care including admission /observation considered low suspicion for fracture, dislocation, or vascular injury requiring advanced imaging or urgent orthopedic consultation Consult Healthcare Provider Management of the patient was discussed with: Steward/Stewardess Second Class I spoke to orthopedic RADHA Vazquez-I explained the patient's physical exam and my low suspicion for dislocation. She did recommend performing aspiration of the effusion which may help with improvement of range of motion and follow up outpatient orthopedics. External Record Review External record reviewed: Outpatient record and Prior outpatient radiology Tests considered The following testing was considered but not selected: Low suspicion for complex fracture, dislocation or vascular injury requiring CT imaging Prescription Management I considered prescription management with: Pain Medication Procedures Joint Aspiration/Injection Joint Asp./Inject. 1: Time Out Performed: No Side of body: left Joint Aspirated: knee Ultrasound Guidance: No Skin Prep: Povidone-Iodine1% Local Anesthetic: lidocaine 1% Amount of anesthesia used (mL): 3 Needle Size Used: 18G Fluid Obtained: bloody Total fluid obtained (mL): 95 Patient Tolerated Procedure: well Complications: none Orthopedic Splinting/Casting Injury #1: Side: right Lower Extremity Injury Location: knee Lower Extremity Immobilizer: Reginaldo wrap Other Orthopedic Equipment: crutches Critical Care Time Critical Care Time Critical Care Time: Yes Total Critical Care Time: 90 Attestation: Knee effusion requiring arthrocentesis, discussion with Orthopedics with recommendations, discussion with family in regards to procedure and follow-up care Review of outside records and imaging Discharge Plan Discharge Clinical Impression: Effusion of knee joint, left Patient Disposition: Home, Self-Care Instructions: Swollen Knee Joint (ED), Joint Aspiration (DC) Additional Instructions: Rest, ice, elevation Keep the Reginaldo wrap on for 24 hours. You may then remove it but we do recommend that you reply it after short period. Use the crutches for ambulation. Take ibuprofen 3 times daily Follow-up with orthopedics outpatient Return for fever, redness, increasing pain or swelling Prescriptions: No Action fluticasone propionate [Flonase Allergy Relief] 50 mcg/actuation spray,suspension 1 spray intranasal DAILY 30 Days Qty: 16 2RF Rx Instructions: administer into each nostril famotidine 10 mg PO DAILY PRN (Reason: Acid Reflux) multivitamin 325 mg PO DAILY peppermint oil 200 mg PO DIRECTED bismuth subsalicylate [Pepto-Bismol] 262 mg tablet,chewable 2 tab PO Q1H PRN Rx Instructions: do not exceed 16 tabs per 24 hrs trazodone 50 mg tablet 50 mg PO BEDTIME lithium carbonate 300 mg capsule 300 mg PO BID clonazepam 0.5 mg tablet 0.5 mg PO TID PRN (Reason: anxiety) lactase [Lactaid] 3,000 unit tablet 3,000 unit PO QID PRN (Reason: Lactose Intolerance) Rx Instructions: administer with meals and/or snacks acetaminophen [Tylenol] 325 mg capsule 325 mg PO QID PRN (Reason: Headache) [place] [facility] [[place] Group] - 5 days Interventions: ED Discharge Assessment Last Done: 01/12/24 17:52 Discharge Date/Time: 01/12/24 17:52
[2024-01-12 15:49] VITALS: BP 144/75; PULSE 74; RESP 16; TEMP 37; O2SAT 100; BMI 20.5
[2024-01-12] MEDS: Lidocaine HCl 1 % MPF 2 ML VIAL INFILTRATI ×5 (16:51)
[2024-01-12 17:52] VITALS: BP 140/80; PULSE 82; RESP 18; TEMP 37.1; O2SAT 98
== END 2024-01-12 17:52 | disposition home or self-care (01) ==
PROVIDERS: Emergency Provider Internal Medicine; PCP Internal Medicine
DX: M25.462 Effusion, left knee (principal)
CPT/HCPCS: 20610; 99284

== ENCOUNTER 2024-01-15 11:40 | Outpatient (AMB) | payer OTHER, SELFPAY ==
--- NOTE | 2024-01-15 12:04 | MHC.OFFVIS ---
Intake Vital Signs 01/15/24 12:09 Height 5 ft 8 in Weight 160 lb BMI 24.3 BP 119/83 Blood Pressure Location Lt brachial Position Sitting Pulse 80 Intake Visit Reasons: Noninfective gastroenteritis and colitis Intake Note: Patient follow up for Gastroenteritis and colitis. Patient cc: abdominal discomfort, Nauseas, GERD, diarrhea and loose BM on and off with flame. 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 Accompanied by: Self / Same As Patient Allergies penicillin V Allergy (Unknown, Verified 01/15/24 11:58) anaphylaxis Sulfa (Sulfonamide Antibiotics) Allergy (Unknown, Verified 01/15/24 11:58) fixed drug eruption asprin Adverse Reaction (Intermediate, Uncoded 01/12/24 12:22) Unknown Medication List - Last Reconciled 01/15/24 by Ariane Hirsch PA-C acetaminophen (Tylenol) 325 mg PO QID PRN bismuth subsalicylate (Pepto-Bismol) 2 tabs PO Q1H PRN clonazepam 0.5 mg PO TID PRN [famotidine 10 mg PO DAILY PRN] fluticasone propionate 50 mcg/actuation (Flonase Allergy Relief) 1 spray intranasal DAILY 30 days lactase (Lactaid) 3,000 units PO QID PRN lithium carbonate 300 mg PO BID [multivitamin 325 mg PO DAILY] [peppermint oil 200 mg PO DIRECTED] trazodone 50 mg PO BEDTIME HPI HPI Comments History of Present Illness Details 38-year-old male seen last in 2020 referred back with multiple GI complaint Seen by PCP August 2023 Cruthches- playing volleyball No stomach issues- here because he can not get an appointment. When he has flareups (5 x year correlates when he sits home drinking etoh and overeats)-wakes up with nausea- eats bland for few days and then symptoms resolved He has smoothies in the a.m. He admits to eating fast- sometimes causes him to bloating MJ currently at least 3 times a day- no association to stomach- 1- BM daily- Currently no nausea, vomiting, diarrhea, hematemesis, hematochezia, abdominal pain, fever or chills PFSH Medical History Deviated septum Nausea IBS (irritable bowel syndrome) Surgical History History of tonsillectomy Family History Paternal Grandfather Prostate cancer Paternal Grandmother Colon cancer Other Mental health disorder Substance use disorder Social History Household Members: None Housing: Apartment Alcohol intake: current Alcohol intake frequency: holidays/special occasions only Patient Tobacco Use Status: Former Tobacco user (20 years ago ) Tobacco use type: Cigarette e-Cigarette/Vaping Use: Never Used Substance Use Type: Marijuana service: No Current occupational status: disabled Cognitive needs: No Hearing needs: No Vision needs: No Physical Exam Vital Signs: Last Vital Signs Pulse 80 01/15/24 12:09 BP 119/83 01/15/24 12:09 BMI result Body Mass Index 24.3 Const General: healthy appearing, comfortable, Physically active, anxious and well groomed Eyes Sclerae: sclerae normal Resp Effort & Inspection: normal respiratory effort and able to speak in complete sentences Auscultation: clear to auscultation bilaterally Cardio Rate: regular rate Rhythm: regular rhythm Heart sounds: S1 normal heart sound present and S2 normal heart sound present GI Palpation (GI): Soft to palpation and nontender Auscultation: normal bowel sounds Skin General skin exam: no rashes or lesions noted Psych Appearance: well kempt Speech and movement: Pressured speech present Affect: Anxious affect present Attitude: Guarded attititude/behavior present and Refuses to answer (attititude/behavior) Thought content: Normal thought content present, suicidality and no homicidality Judgement: Limited judgement present (Psych) Results Reviewed Results Reviewed: 2020 FL/FL barium swallow IMPRESSION: Small hiatal hernia with mild gastroesophageal reflux. Otherwise unremarkable barium swallow. Assessment & Plan Assessment & Plan (1) IBS (irritable bowel syndrome): Comment: Currently concerns Describes intermittent flares about 5 times annual that include nausea always associates drinking excess alcohol Code(s): K58.9 - Irritable bowel syndrome without diarrhea Plan: Lifestyle dietary change Plan No complaints, prefers to follow-up p.r.n. Orders: Orders H pylori Ag Stool 01/15/24 A04.8 - Other specified bacterial intestinal infections Patient Instructions: 38-year-old male IBS-asymptomatic, not well focused, describes GI flare-ups throughout the year, typically associated with alcohol intake-discussed abstaining or cutting back at least. He does smoke marijuana several times throughout the day discussed possible effect with nausea - He will follow-up as as needed Encouraged to call questions or concerns Coding Level of Care Code Est Pt Level 3 (23430) Diagnoses IBS (irritable bowel syndrome) K58.9 Time Spent (min) 30
[2024-01-15 12:09] VITALS: BP 119/83; PULSE 80; BMI 24.3
== END 2024-01-15 13:02 | disposition home or self-care (01) ==
PROVIDERS: PCP Internal Medicine; Visit Provider Physician Assistant
DX: K58.9 Irritable bowel syndrome, unspecified (principal)
CPT/HCPCS: 99213

== ENCOUNTER → 2024-01-15 11:42 | Outpatient (BNVA) | payer OTHER, SELFPAY | PROVIDERS: PCP Internal Medicine; Visit Provider Physician Assistant | DX: K58.9 Irritable bowel syndrome, unspecified (principal) | CPT/HCPCS: 99212 ==

== ENCOUNTER 2024-01-19 09:18 | Outpatient (REF) | payer OTHER, SELFPAY ==
--- NOTE | ~2024-01-19 | XR_ITS ---
EXAMINATION: XR AP STANDING BILATERAL KNEES, SUNRISE VIEW LEFT KNEE CLINICAL INFORMATION: Pain in unspecified knee. COMPARISON: 01/12/2024 TECHNIQUE: AP standing view of bilateral knees. [place] view of the left knee. The images were discussed with the technologist who originally obtain the images today January 24, 2024. The technologist confirmed that the sunrise view is of the left knee and that there is a single standing view of bilateral knees. No additional views of the right knee were obtained. FINDINGS: Mild narrowing of the medial and lateral compartments of bilateral knees. Tiny posterior left patellar spurs. XR/XR knee LT 1V IMPRESSION: Mild degenerative changes in the bilateral knees.
--- NOTE | ~2024-01-19 | XR_ITS ---
EXAMINATION: XR AP STANDING BILATERAL KNEES, SUNRISE VIEW LEFT KNEE CLINICAL INFORMATION: Pain in unspecified knee. COMPARISON: 01/12/2024 TECHNIQUE: AP standing view of bilateral knees. [place] view of the left knee. The images were discussed with the technologist who originally obtain the images today January 24, 2024. The technologist confirmed that the sunrise view is of the left knee and that there is a single standing view of bilateral knees. No additional views of the right knee were obtained. FINDINGS: Mild narrowing of the medial and lateral compartments of bilateral knees. Tiny posterior left patellar spurs. XR/XR knee RT 2V IMPRESSION: Mild degenerative changes in the bilateral knees.
== END 2024-01-19 09:19 | disposition home or self-care (01) ==
LOC: HO.HOSX 09:18
PROVIDERS: PCP Internal Medicine; Visit Provider Physician Assistant
DX: S83.102A Unspecified subluxation of left knee, initial encounter (principal); M25.561 Pain in right knee
CPT/HCPCS: 73560; 99202

== ENCOUNTER 2024-01-19 09:18 | Outpatient (AMB) | payer OTHER, SELFPAY ==
--- NOTE | 2024-01-19 09:35 | MHC.OFFVIS ---
Intake Vital Signs 01/19/24 09:42 Height 5 ft 8 in Weight 160 lb BMI 24.3 Intake Visit Reasons: N/P Closed dislocation of left patella Intake Note: Edwardo a 38 year old male presents today for an ER follow up of left knee, DOI 01/10/24. Patient reports while he was playing basketball he stepped the wrong way cause his knee to dislocate, he turned to look at his knee when it went back into place. He continued to have swelling so he presented to [facility] walk in clinic where he was advised to go to the ED where he had an aspiration. Currently he continues to have soreness. States he does not apply his full weight on his leg. Finds relief with compression wrap, icing, and 800 mg ibuprofen. Allergies penicillin V Allergy (Unknown, Verified 01/19/24 09:55) anaphylaxis Sulfa (Sulfonamide Antibiotics) Allergy (Unknown, Verified 01/19/24 09:55) fixed drug eruption asprin Adverse Reaction (Intermediate, Uncoded 01/19/24 09:55) Unknown Medication List - Last Reconciled 01/19/24 by Sincere Newby PA-C acetaminophen (Tylenol) 325 mg PO QID PRN bismuth subsalicylate (Pepto-Bismol) 2 tabs PO Q1H PRN clonazepam 0.5 mg PO TID PRN [famotidine 10 mg PO DAILY PRN] fluticasone propionate 50 mcg/actuation (Flonase Allergy Relief) 1 spray intranasal DAILY 30 days lactase (Lactaid) 3,000 units PO QID PRN lithium carbonate 300 mg PO BID [multivitamin 325 mg PO DAILY] [peppermint oil 200 mg PO DIRECTED] trazodone 50 mg PO BEDTIME HPI N/P Closed dislocation of left patella HPI Details 38-year-old male who presents to the office today for an ER follow-up of left knee injury s/p playing basketball when he stepped the wrong way causing his knee to dislocate, and he turned to look at his knee when it went back to place, 01/10/24. He continued to have swelling in his knee and was seen at walk-in clinic where he was advised to see ED where he had an aspiration. He currently states he has soreness in his knee and is unable to bear full weight on his leg. He finds relief with compression wrap, icing, and ibuprofen 800 mg. [facility] Medical History (Updated 01/19/24 @ 12:34 by Sincere Newby PA-C) Deviated septum Nausea IBS (irritable bowel syndrome) Surgical History (Updated 01/19/24 @ 09:45 by DEUCE Arguello) History of nasal surgery History of tonsillectomy Family History Paternal Grandfather Prostate cancer Paternal Grandmother Colon cancer Other Mental health disorder Substance use disorder Social History Household Members: None Housing: Apartment Alcohol intake: current Alcohol intake frequency: holidays/special occasions only Patient Tobacco Use Status: Former Tobacco user (20 years ago ) Tobacco use type: Cigarette e-Cigarette/Vaping Use: Never Used Substance Use Type: Marijuana service: No Current occupational status: disabled Cognitive needs: No Hearing needs: No Vision needs: No Review of Systems Const All systems reviewed & are unremarkable except as noted in HPI and below Physical Exam Vital Signs: BMI result Body Mass Index 24.3 Const General: cooperative, healthy appearing, comfortable, no acute distress, well developed and alert Orientation/consciousness: patient oriented x3 HEENT Head: Yes normal to inspection, Yes normocephalic and Yes atraumatic Eyes General: appearance normal, both eyes and all related structures Resp Effort & Inspection: normal respiratory effort and able to speak in complete sentences Cardio Rate: regular rate Peripheral pulses: Peripheral pulses 2+ throughout GI Palpation (GI): Soft to palpation Skin Lesions: no lesions Rashes: no rashes Neuro General: patient oriented x3 Extrem Other: Left knee: Skin intact, no erythema or joint effusion. Lateral retropatellar tenderness present. Full ROM with crepitus. Negative Brock?s. No ligamentous laxity. NVI. Results Reviewed Results Reviewed: Xrays were obtained in the office today and personally reviewed by me of the left knee show well preserved joint space with no acute fracture or dislocations. Assessment & Plan Assessment & Plan (1) Subluxation of left knee: Code(s): S83.102A - Unspecified subluxation of left knee, initial encounter Qualifiers: Encounter type: initial encounter Qualified Code(s): S83.102A - Unspecified subluxation of left knee, initial encounter Plan I think the pateint had more of a subluxation episode and not a true dislocation. We discussed options which include PT, NSAIDs and bracing. The patient will proceed with PT and NSAIDs. He was fit for a genumed knee brace today .If symptoms persist, the patient will contact me , otherwise, PRN. Orders: Orders PT Evaluation and Treatment Today S83.102A - Unspecified subluxation of left knee, initial encounter XR knee LT 1V Today M25.562 - Pain in left knee XR knee RT 2V Today M25.569 - Pain in unspecified knee Patient Instructions: Scribed for Sincere Newby PA-C, by Gurpreet Corrales medical assistant per diem, on 01/18/2024 at 9:15 AM EST. I, Sincere Newby PA-C, have personally reviewed and agree with the information entered by the scribe. Coding Level of Care Code New Pt Level 3 (53790) Diagnoses Subluxation of left knee, initial encounter S83.102A Encounter type: initial encounter
[2024-01-19 09:42] VITALS: BMI 24.3
== END 2024-01-19 10:32 | disposition home or self-care (01) ==
PROVIDERS: PCP Internal Medicine; Visit Provider Physician Assistant
DX: S83.102A Unspecified subluxation of left knee, initial encounter (principal)
CPT/HCPCS: 99203

== ENCOUNTER 2024-02-14 11:15 | Outpatient (AMB) | payer OTHER, SELFPAY ==
--- NOTE | 2024-02-14 11:16 | A.OFFPC_ITS ---
Vital Signs 02/14/24 11:17 Height 5 ft 8 in Weight 159 lb BMI 24.2 BP 102/60 Blood Pressure Location Rt brachial Position Sitting Pulse 81 Pulse Source Pulse Oximeter Pulse Oximetry (%) 98 Oxygen Delivery Method Room Air Intake Visit Reasons: STD testing Nutrition Representative Required: No Accompanied by: Self / Same As Patient Allergies penicillin V Allergy (Unknown, Verified 02/14/24 11:17) anaphylaxis Sulfa (Sulfonamide Antibiotics) Allergy (Unknown, Verified 02/14/24 11:17) fixed drug eruption asprin Adverse Reaction (Intermediate, Uncoded 01/19/24 09:55) Unknown Medication List - Last Reconciled 02/14/24 by Vipul Duran MD acetaminophen (Tylenol) 325 mg PO QID PRN bismuth subsalicylate (Pepto-Bismol) 2 tabs PO Q1H PRN clonazepam 0.5 mg PO TID PRN [famotidine 10 mg PO DAILY PRN] fluticasone propionate 50 mcg/actuation (Flonase Allergy Relief) 1 spray intranasal DAILY 30 days lactase (Lactaid) 3,000 units PO QID PRN lithium carbonate 300 mg PO BID [peppermint oil 200 mg PO DIRECTED] trazodone 50 mg PO BEDTIME Tobacco use date assessed: 02/14/24 Dental Screening Dental Screen Date: 02/14/24 Did you have a dental visit in the last 12 months?: Yes Did you have a dental problem in the last 6 months where you did not have access to dental care?: No Was dental information given to patient?: Patient has dentist HPI STD testing HPI Details Multiple sexual partners, want to be tested for STD No penile discharge, no dysuria, no frequency, no blood in the urine No fever no chills no cough PFSH Medical History Deviated septum Nausea IBS (irritable bowel syndrome) Surgical History History of nasal surgery History of tonsillectomy Family History Paternal Grandfather Prostate cancer Paternal Grandmother Colon cancer Other Mental health disorder Substance use disorder Social History Household Members: None Housing: Apartment Alcohol intake: current Alcohol intake frequency: holidays/special occasions only Patient Tobacco Use Status: Former Tobacco user (20 years ago ) Tobacco use type: Cigarette e-Cigarette/Vaping Use: Never Used Substance Use Type: Marijuana service: No Current occupational status: disabled Cognitive needs: No Hearing needs: No Vision needs: No Questionnaire Thrive Questionnaire Date Thrive assessed: 05/24/23 AUDIT C Alcohol Use Questionnaire (AUDIT-C) 1. How often do you have a drink containing alcohol?: 4 or more times a week 2. How many drinks containing alcohol do you have on a typical day when you are drinking?: 3 or 4 3. How often do you have six or more drinks on one occasion?: Monthly Total Score: 7 CRIS-7 AMB Questionnaire CRIS-7 Date CRIS - 7 assessed: 05/24/23 Source: Developed by Drs. Reggie Pavon, Edita Casanova, Garcia De Leon and colleagues, with an educational matt from [employer]. Review of Systems Const All systems reviewed & are unremarkable except as noted in HPI and below Physical exam (Primary Care) Vital Signs: Last Vital Signs Pulse 81 02/14/24 11:17 BP 102/60 02/14/24 11:17 Pulse Ox 98 02/14/24 11:17 Oxygen Delivery Method Room Air 02/14/24 11:17 BMI result Body Mass Index 24.2 Tobacco/Smoking Status: Tobacco use Status Tobacco use date assessed 02/14/24 02/14/24 11:25 Patient Tobacco Use Status Former Tobacco user (02/14/24 11:25 years ago ) Tobacco use type Cigarette 02/14/24 11:19 e-Cigarette/Vaping Use Never Used 02/14/24 11:19 Thrive Assessment: Date of Thrive Assessment Date Thrive assessed 05/24/23 02/14/24 11:19 Const General: no acute distress Orientation/consciousness: patient oriented x3 Eyes General: appearance normal, both eyes and all related structures Resp Effort & Inspection: normal respiratory effort and able to speak in complete sentences Auscultation: clear to auscultation bilaterally Neuro General: patient oriented x3 Psych Mental Status: mental status grossly normal Assessment and Plan Assessment & Plan (1) STD exposure: Code(s): Z20.2 - Contact with and (suspected) exposure to infections with a predominantly sexual mode of transmission Plan Multiple sexual partners, want to be tested for STD No penile discharge, no dysuria, no frequency, no blood in the urine No fever no chills no cough Orders: Orders HIV Ab/Ag Today Z20.2 - Contact with and (suspected) exposure to infections with a predominantly sexual mode of transmission Hepatitis C Antibody Today 20.2 - Contact with and (suspected) exposure to infections with a predominantly sexual mode of transmission Hepatitis B Surface Antibody Today 20.2 - Contact with and (suspected) exposure to infections with a predominantly sexual mode of transmission CT NG by PCR Today Z20.2 - Contact with and (suspected) exposure to infections with a predominantly sexual mode of transmission Syphilis Screen Today Z20.2 - Contact with and (suspected) exposure to infections with a predominantly sexual mode of transmission Herpes Simplex Virus Ab IgG Today 20.2 - Contact with and (suspected) exposure to infections with a predominantly sexual mode of transmission Coding Level of Care Code Est Pt Level 3 (60057) Diagnoses STD exposure .
[2024-02-14 11:17] VITALS: BP 102/60; PULSE 81; O2SAT 98; BMI 24.2
== END 2024-02-14 13:34 | disposition home or self-care (01) ==
PROVIDERS: PCP Internal Medicine; Visit Provider Internal Medicine
DX: Z20.2 Contact with and (suspected) exposure to infections with a predominantly sexual mode of transmission (principal)
CPT/HCPCS: 99213

== ENCOUNTER 2024-02-14 11:36 | Outpatient (REF) | payer OTHER, SELFPAY ==
[2024-02-15 07:13] LABS: Herpes Simplex Type 2 IgG <0.90 index
[2024-02-15 07:58] LABS: Syphilis Screen Nonreactive (Nonreactive)
[2024-02-15 08:34] LABS: HBS Num1 0.47 mIU/mL (0-7.99); HIV AB/AG Nonreactive (Nonreactive); HIV Num 1 0.05 S/CO (0.00-0.99); ~HepC Num1 0.07 S/CO (0.00-0.79); ~Hepatitis B Surface Antibody NONREACTIVE (Nonreactive); ~Hepatitis C Antibody Nonreactive (Nonreactive)
== END 2024-02-14 11:37 | disposition home or self-care (01) ==
LOC: HO.HMGCLDS 11:36
PROVIDERS: PCP Internal Medicine; Visit Provider Internal Medicine
DX: Z11.4 Encounter for screening for human immunodeficiency virus [HIV] (principal); Z20.2 Contact with and (suspected) exposure to infections with a predominantly sexual mode of transmission
CPT/HCPCS: 36415; 86695; 86696; 86706; 86780; 86803; 87389

== ENCOUNTER 2024-02-14 13:52 | Outpatient (REF) | payer OTHER, SELFPAY | END 2024-02-14 13:53 | disposition home or self-care (01) | LOC: HO.LAB 13:52 | PROVIDERS: Visit Provider Internal Medicine | DX: Z13.89 Encounter for screening for other disorder (principal) ==

== ENCOUNTER 2024-02-19 13:00 | Outpatient (RCR) | payer OTHER, SELFPAY | END 2024-04-22 07:47 | disposition home or self-care (01) | LOC: HO.PTWFD 13:00 | PROVIDERS: PCP Internal Medicine; Visit Provider Physician Assistant | DX: S83.102D Unspecified subluxation of left knee, subsequent encounter (principal) | CPT/HCPCS: 97110; 97161; 97535 ==

== ENCOUNTER 2024-03-11 13:00 | Outpatient (AMB) | payer OTHER, SELFPAY ==
[2024-03-11 13:45] VITALS: BP 106/66; PULSE 80; TEMP 36.6; O2SAT 98; BMI 24.2
--- NOTE | 2024-03-11 13:45 | AM.OFFWIN_ITS ---
Intake Vital Signs 03/11/24 13:45 Height 5 ft 8 in Weight 159 lb BMI 24.2 BP 106/66 Blood Pressure Location Rt brachial Position Sitting Pulse 80 Pulse Source Pulse Oximeter Temp 97.9 F Temp Source Oral Pulse Oximetry (%) 98 Oxygen Delivery Method Room Air Intake Visit Reasons: EST/stomach pain (lobby) Intake Note: pt is here for stomach pain and watery stools, has hx of ibs and also traveled to [facility] and drank more then 10 drinks a day Patient Tobacco Use Status: Former Tobacco user (20 years ago ) Allergies penicillin V Allergy (Unknown, Verified 03/11/24 13:45) anaphylaxis Sulfa (Sulfonamide Antibiotics) Allergy (Unknown, Verified 03/11/24 13:45) fixed drug eruption asprin Adverse Reaction (Intermediate, Uncoded 01/19/24 09:55) Unknown Do you need a note to return to daycare/school/sports/work: No HPI HPI Comments History of Present Illness Details Patient presents to the walk-in today for sick visit Complaining of loose watery stools for last 4 days Patient returned 5 days ago [place] where he spent 16 days on vacation Does endorse drinking alcohol daily over those 2 weeks Reports was having loose stools, has not improved since returning home Denies blood in stool or urine. Endorses abdominal cramping. Denies sharp, shooting or stabbing abdominal pain Denies vomiting, syncope, weakness, dizziness, fevers Tolerating p.o. [facility] Medical History Deviated septum Nausea IBS (irritable bowel syndrome) Surgical History History of nasal surgery History of tonsillectomy Family History Paternal Grandfather Prostate cancer Paternal Grandmother Colon cancer Other Mental health disorder Substance use disorder Social History Household Members: None Housing: Apartment Alcohol intake: current Alcohol intake frequency: holidays/special occasions only Patient Tobacco Use Status: Former Tobacco user (20 years ago ) Tobacco use type: Cigarette e-Cigarette/Vaping Use: Never Used Substance Use Type: Marijuana service: No Current occupational status: disabled Cognitive needs: No Hearing needs: No Vision needs: No Review of Systems Const All systems reviewed & are unremarkable except as noted in HPI and below Physical Exam Vital Signs: Last Vital Signs Temp 97.9 F 03/11/24 13:45 Pulse 80 03/11/24 13:45 BP 106/66 03/11/24 13:45 Pulse Ox 98 03/11/24 13:45 Oxygen Delivery Method Room Air 03/11/24 13:45 BMI result Body Mass Index 24.2 General: awake, alert, oriented. Answers questions appropriately. Fully engaged in examination. Skin: warm, dry, intact HEENT: Normocephalic. Hearing intact. Cardiac: External chest normal in appearance. Respiratory: No cough, audible wheezing or stridor. Abdomen: without gross distension. Soft, nontender. No guarding MS: No obvious swelling or deformities. Neurological: Oriented to person, place, time and situation. Thought process intact. No gait abnormalities appreciated. Psychiatric: Appropriate mood and affect. Good judgment and insight. Assessment & Plan Assessment & Plan (1) Traveler's diarrhea: Code(s): A09 - Infectious gastroenteritis and colitis, unspecified Plan Azithromycin 500 mg daily x3 days. Drink plenty of fluids. Advance diet as tolerated Consider reestablishing care with GI doctors for known IBS. Follow up with PCP or return here for any new or worsening symptoms. Patient advised on red flag symptoms and when to seek treatment in the emergency room Medications: New azithromycin 500 mg PO DAILY 3 days 3 tabs 0RF Coding Level of Care Code Est Pt Level 3 (32770) Diagnoses Traveler's diarrhea A09
== END 2024-03-11 14:44 | disposition home or self-care (01) ==
PROVIDERS: PCP Internal Medicine; Visit Provider Registered Nurse Emergency
DX: A09 Infectious gastroenteritis and colitis, unspecified (principal)
CPT/HCPCS: 99213

== ENCOUNTER 2024-10-15 10:18 | Outpatient (AMB) | payer OTHER, SELFPAY ==
[2024-10-15 10:21] VITALS: BP 130/76; PULSE 80; O2SAT 98; BMI 26.3
--- NOTE | 2024-10-15 10:21 | A.OFFPC_ITS ---
Vital Signs 10/15/24 10:21 Height 5 ft 8 in Weight 173 lb BMI 26.3 BP 130/76 Blood Pressure Location Rt brachial Position Sitting Pulse 80 Pulse Source Pulse Oximeter Pulse Oximetry (%) 98 Oxygen Delivery Method Room Air Intake Visit Reasons: Annual PE Allergies penicillin V Allergy (Unknown, Verified 10/15/24 10:21) anaphylaxis Sulfa (Sulfonamide Antibiotics) Allergy (Unknown, Verified 10/15/24 10:21) fixed drug eruption asprin Adverse Reaction (Intermediate, Uncoded 01/19/24 09:55) Unknown Medication List - Last Reconciled 10/15/24 by Vipul Duran MD acetaminophen (Tylenol) 325 mg PO QID PRN bismuth subsalicylate (Pepto-Bismol) 2 tabs PO Q1H PRN clonazepam 0.5 mg PO TID PRN [famotidine 10 mg PO DAILY PRN] fluticasone propionate 50 mcg/actuation (Flonase Allergy Relief) 1 spray intranasal DAILY 30 days lactase (Lactaid) 3,000 units PO QID PRN lithium carbonate mg PO [peppermint oil 200 mg PO DIRECTED] trazodone 50 mg PO BEDTIME venlafaxine ER 75 mg PO DAILY Tobacco use date assessed: 10/15/24 Dental Screening Dental Screen Date: 10/15/24 Did you have a dental visit in the last 12 months?: Yes Did you have a dental problem in the last 6 months where you did not have access to dental care?: No Was dental information given to patient?: Patient has dentist HPI Annual PE HPI Details Patient is a 39-year-old gentleman came in for physical examination He has a history of impaired fasting sugar, LFT elevation, bipolar disorder, stable neutropenia, IBS Currently seeing psychiatrist and is taking lithium and clonazepam through them His other psychiatric medications are trazodone 50 mg at bedtime and venlafaxine 75 mg No medications through PCP office Lab order placed to be done fasting, however patient was it [facility] in August this year due to alcoholism And had some labs done which he brought copy. Diagnostic results - Labs: - Hemoglobin: Normal - White Blood Cell Count: Normal - Electrolytes: Normal - Renal Function: Normal - Liver Enzymes: Normal - Tests and Diagnostics: - Previous bloo d pressure records indicated elevated levels in past consultation. Problem List - Bipolar Disorder - Nausea - Anxiety - Hair Loss[patient will see Dermatology for that] Medications - [place] 150 mg, once daily for Bipolar Disorder. - Effexor 75 mg daily for depression. - Trazodone for sleep. - Lurasidone for mood stabilization. - Clonazepam as needed for Anxiety sympt oms. Health Maintenance - Advised monitoring alcohol intake to p revent nausea. - Encouraged dermatological evaluation f or mole assessment and documentation for any potential skin changes. - Suggested exploration of hair loss luciano atment options with a regulatory intern. Follow-up 1 year physical exam [facility] Medical History Deviated septum Nausea IBS (irritable bowel syndrome) Surgical History History of nasal surgery History of tonsillectomy Family History Paternal Grandfather Prostate cancer Paternal Grandmother Colon cancer Other Mental health disorder Substance use disorder Social History Household Members: None Housing: Apartment Alcohol intake: current Alcohol intake frequency: holidays/special occasions only Patient Tobacco Use Status: Former Tobacco user (20 years ago ) Tobacco use type: Cigarette e-Cigarette/Vaping Use: Never Used Substance Use Type: Marijuana service: No Current occupational status: disabled Cognitive needs: No Hearing needs: No Vision needs: No Questionnaire Thrive Questionnaire Date Thrive assessed: 10/15/24 I am a: Patient What is your living situation today?: I have a steady place to live Within the past 12 months, did the food you bought not last and you didn't have the money to get more?: Never true Within the past 12 months, did you worry whether your food would run out before you got money to buy more?: Never true Do you have trouble paying for medicines?: No Do you have trouble getting transportation to medical appointments?: No Do you have trouble paying your heating and electricity bill?: No Do you have trouble taking care of your child, family member or friend?: No Do you have trouble with day-to-day activities such as bathing, preparing meals, shopping, managing finances, etc.?: No Are you currently unemployed and looking for a job?: No Are you interested in more education?: No Please select the resources that you would like help with: None Currently or been in a relationship where the following occur: No concerns reported THRIVE Score: 0 AUDIT C Alcohol Use Questionnaire (AUDIT-C) 1. How often do you have a drink containing alcohol?: 4 or more times a week 2. How many drinks containing alcohol do you have on a typical day when you are drinking?: 3 or 4 3. How often do you have six or more drinks on one occasion?: Monthly Total Score: 7 Score Reviewed/Action Taken: Yes CRIS-7 AMB Questionnaire CRIS-7 Date CRIS - 7 assessed: 10/15/24 Feeling nervous, anxious, or on edge: 0 = Not at all Not being able to stop or control worryin = Not at all Worrying too much about different things: 0 = Not at all Trouble relaxin = Not at all Being so restless that it is hard to sit still: 0 = Not at all Becoming easily annoyed or irritable: 0 = Not at all Feeling afraid as if something awful might happen: 0 = Not at all Total CRIS-7 score (0-4 normal; 5-9 mild; 10-14 moderate; 15-21 severe): 0 Source: Developed by Drs. Reggie Pavon, Edita Casanova, Garcia De Leon and colleagues, with an educational matt from [employer] CRIS-7 Assessment Billing CRIS-7 Assessment Tool: CRIS-7 Assessment 82524 Review of Systems Const Denies chills, Denies fever(s) and Denies headache(s) Eyes Denies blurry vision ENT Denies headache(s), Denies nasal discharge, Denies nasal obstruction, Denies odynophagia and Denies sinus pain Card Denies chest pain at rest and Denies chest pain with activity Resp Denies cough and Denies hemoptysis GI Denies diarrhea, Denies odynophagia, Denies vomiting and Denies hematemesis Reports as per HPI Musc Denies abnormal gait Skin/Breast Reports as per HPI Neuro Denies Neuro-related abnormal movements, Denies Abnormal speech present, Denies abnormal gait, Denies headache(s) and Denies Sensory deficit (Neuro) Psych Denies mood swings and Denies paranoia Endo Reports as per HPI Luis/Lymph Reports as per HPI Aller/Immun Reports as per HPI Physical exam (Primary Care) Vital Signs: Last Vital Signs Pulse 80 10/15/24 10:21 BP 130/76 10/15/24 10:21 Pulse Ox 98 10/15/24 10:21 Oxygen Delivery Method Room Air 10/15/24 10:21 BMI result Body Mass Index 26.3 Tobacco/Smoking Status: Tobacco use Status Tobacco use date assessed 10/15/24 10/15/24 10:25 Patient Tobacco Use Status Former Tobacco user (20 10/15/24 10:25 years ago ) Tobacco use type Cigarette 10/15/24 10:25 e-Cigarette/Vaping Use Never Used 10/15/24 10:25 Thrive Assessment: Date of Thrive Assessment Date Thrive assessed 10/15/24 10/15/24 10:25 Currently or been in a relationship where the following occur: No concerns reported Const General: cooperative, comfortable and no acute distress Orientation/consciousness: patient oriented x3 HENMT Head: Yes normocephalic and Yes atraumatic Eyes General: appearance normal, both eyes and all related structures Pupils: Equal, round and reactive pupils present EOM: EOMs intact bilaterally Neck Neck: Yes supple and No lymphadenopathy Thyroid: Thyroid normal Lymphatic: no lymphadenopathy noted Resp Effort & Inspection: normal respiratory effort and able to speak in complete sentences Auscultation: clear to auscultation bilaterally Cardio Heart sounds: S1 normal heart sound present and S2 normal heart sound present GI Palpation (GI): Soft to palpation and nontender Auscultation: normal bowel sounds General: Yes no CVA tenderness Back/Spine/Pelvis Back: no CVA tenderness Skin Other: Several moles of different size and shape in the back General skin exam: elasticity normal and turgor normal Neuro General: patient oriented x3 and gait normal Cranial nerves: Yes Equal, round and reactive pupils present Speech: No Abnormal speech present Sensory Exam: No Sensory deficit (Neuro) Coordination: tandem gait normal and Romberg test negative Extrem General: Yes normal exam except as noted and No edema Coding Level of Care Code Est Pt Level 3 (07046) Est Pt Prev Care 40-64y(33606) Diagnoses Encounter for general adult medical examination with abnormal findings Z00.01 Impaired fasting blood sugar R73.01 Bipolar disorder, in partial remission, most recent episode mixed F31.77 Active/Remission status: in partial remission Most recent bipolar episode type: mixed Other irritable bowel syndrome K58.8 Irritable bowel syndrome type: other Skin cancer screening Z12.83 Additional Codes CRIS-7 Assessment Billing - CRIS-7 Assessment Tool: CRIS-7 Assessment 39702 ([id number]) Assessment & Plan Assessment & Plan (1) Encounter for general adult medical examination with abnormal findings: Code(s): Z00.01 - Encounter for general adult medical examination with abnormal findings Category: Medical (2) Impaired fasting blood sugar: Code(s): R73.01 - Impaired fasting glucose Category: Medical (3) Bipolar disorder: Code(s): F31.9 - Bipolar disorder, unspecified Category: Medical Qualifiers: Active/Remission status: in partial remission Most recent bipolar episode type: mixed Qualified Code(s): F31.77 - Bipolar disorder, in partial remission, most recent episode mixed (4) IBS (irritable bowel syndrome): Comment: Currently concerns Describes intermittent flares about 5 times annual that include nausea always associates drinking excess alcohol Code(s): K58.9 - Irritable bowel syndrome, unspecified Category: Medical Qualifiers: Irritable bowel syndrome type: other Qualified Code(s): K58.8 - Other irritable bowel syndrome (5) Skin cancer screening: Code(s): Z12.83 - Encounter for screening for malignant neoplasm of skin Category: Medical Plan Patient is a 39-year-old gentleman came in for physical examination He has a history of impaired fasting sugar, LFT elevation, bipolar disorder, stable neutropenia, IBS Currently seeing psychiatrist and is taking lithium and clonazepam through them His other psychiatric medications are trazodone 50 mg at bedtime and venlafaxine 75 mg No medications through PCP office Lab order placed to be done fasting, however patient was it [facility] in August this year due to alcoholism And had some labs done which he brought copy. Diagnostic results - Labs: - Hemoglobin: Normal - White Blood Cell Count: Normal - Electrolytes: Normal - Renal Function: Normal - Liver Enzymes: Normal - Tests and Diagnostics: - Previous blood pressure records indicated elevated levels in past consultation. Problem List - Bipolar Disorder - Nausea - Anxiety - Hair Loss[patient will see Dermatology for that] Medications - [place] 150 mg, once daily for Bipolar Disorder. - Effexor 75 mg daily for depression. - Trazodone for sleep. - Lurasidone for mood stabilization. - Clonazepam as needed for Anxiety symptoms. Health Maintenance - Advised monitoring alcohol intake to prevent nausea. - Encouraged dermatological evaluation for mole assessment and documentation for any potential skin changes. - Suggested exploration of hair loss treatment options with a regulatory intern. Follow-up 1 year physical exam Orders: Orders Hemoglobin A1c Today D70.9 - Neutropenia, unspecified, F31.77 - Bipolar disorder, in partial remission, most recent episode mixed, K58.9 - Irritable bowel syndrome, unspecified, R73.01 - Impaired fasting glucose, R79.89 - Other specified abnormal findings of blood chemistry, Z00.01 - Encounter for general adult medical examination with abnormal findings Comprehensive Met. Panel Today D70.9 - Neutropenia, unspecified, F31.77 - Bipolar disorder, in partial remission, most recent episode mixed, K58.9 - Irritable bowel syndrome, unspecified, R73.01 - Impaired fasting glucose, R79.89 - Other specified abnormal findings of blood chemistry, Z00.01 - Encounter for general adult medical examination with abnormal findings LDL Cholesterol Direct Today D70.9 - Neutropenia, unspecified, F31.77 - Bipolar disorder, in partial remission, most recent episode mixed, K58.9 - Irritable bowel syndrome, unspecified, R73.01 - Impaired fasting glucose, R79.89 - Other specified abnormal findings of blood chemistry, Z00.01 - Encounter for general adult medical examination with abnormal findings Complete Blood Count Auto Diff Today D70.9 - Neutropenia, unspecified, F31.77 - Bipolar disorder, in partial remission, most recent episode mixed, K58.9 - Irritable bowel syndrome, unspecified, R73.01 - Impaired fasting glucose, R79.89 - Other specified abnormal findings of blood chemistry, Z00.01 - Encounter for general adult medical examination with abnormal findings Referrals Dermatology Referral Z12.83 - Encounter for screening for malignant neoplasm of skin
== END 2024-10-15 10:45 | disposition home or self-care (01) ==
PROVIDERS: PCP Internal Medicine; Visit Provider Internal Medicine
DX: Z00.01 Encounter for general adult medical examination with abnormal findings (principal); R73.01 Impaired fasting glucose; F31.77 Bipolar disorder, in partial remission, most recent episode mixed; K58.8 Other irritable bowel syndrome; Z12.83 Encounter for screening for malignant neoplasm of skin

== ENCOUNTER → 2024-10-15 10:18 | Outpatient (BNVA) | payer OTHER, SELFPAY | PROVIDERS: PCP Internal Medicine; Visit Provider Internal Medicine | DX: Z00.01 Encounter for general adult medical examination with abnormal findings (principal); R73.01 Impaired fasting glucose; R79.89 Other specified abnormal findings of blood chemistry; D70.9 Neutropenia, unspecified; F31.77 Bipolar disorder, in partial remission, most recent episode mixed; K58.8 Other irritable bowel syndrome; Z87.891 Personal history of nicotine dependence; Z79.899 Other long term (current) drug therapy | CPT/HCPCS: 96127; 99212; 99396 ==

== ENCOUNTER 2024-11-27 06:22 | Outpatient (REF) | payer OTHER, SELFPAY ==
[2024-11-27 06:33] LABS: MANUAL DIFF FLAG NO
[2024-11-27 07:56] LABS: Basophils Absolute Auto 0.1 X10*3/uL (0.0-0.2); Basophils Percent Auto 0.9 % (0-2); Eosinophils Absolute Auto 0.6 X10*3/uL (0.0-0.4); Eosinophils Percent Auto 8.4 % (0-4); Hematocrit 45.9 % (42.0-52.0); Hemoglobin 15.3 g/dl (14.0-18.0); Imm Gran Abs Auto 0.02 X10*3/uL (0.00-0.03); Imm Gran Pct Auto 0.3 % (0.0-0.4); Lymphocytes Percent Auto 29.1 % (20-40); Mean Corpuscular HGB Conc 33.3 g/dl (31.0-36.0); Mean Corpuscular Hemoglobin 30.8 pg (27.0-33.0); Mean Corpuscular Volume 92.5 fL (80.0-98.0); Mean Platelet Volume 9.3 fL (9.4-12.4); Monocytes Absolute Auto 0.6 X10*3/uL (0.1-1.2); Monocytes Percent Auto 8.4 % (2-11); Neutrophils Absolute Auto 3.6 x10*3/uL (2.0-8.3); Neutrophils Percent Auto 52.9 % (45-73); Platelet Count 268 X10*3/uL (160-400); Red Blood Count 4.96 X10*6/uL (4.60-5.80); Red Cell Distribution Width 12.5 % (11.0-16.0); White Blood Count 6.8 X10*3/uL (4.8-10.8)
[2024-11-27 08:06] LABS: Estimated Average Glucose 97 mg/dL; Hemoglobin A1C 119.2063 umol/L; Total Hemoglobin (HGBA1C) 3871.5952 umol/L
[2024-11-27 08:27] LABS: Alanine Aminotransferase 25 U/L (0-40); Albumin Level 4.7 g/dL (3.5-5.0); Anion Gap 12 (12-20); Aspartate Amino Transferase 33 U/L (5-37); Bilirubin Total 0.7 mg/dL (0.0-1.0); Blood Urea Nitrogen 16 mg/dL (9-16); Calcium 9.4 mg/dL (8.4-10.2); Carbon Dioxide 23 mmol/L (22-29); Chloride 106 mmol/L (96-108); Estimated Glomerular Filt Rate > 60; Glucose Random 93 mg/dL (60-115); Potassium 4.2 mmol/L (3.3-5.1); Sodium 137 mmol/L (135-145); Total Protein 7.2 g/dL (6.5-8.0)
[2024-11-27 08:49] LABS: Thyroid Stimulating Hormone 1.41 uIU/mL (0.32-4.0)
[2024-11-27 09:04] LABS: Lithium 0.53 mmol/L (0.60-1.20)
[2024-11-27 11:05] LABS: Alkaline Phosphatase 57 U/L (39-117)
[2024-11-29 01:29] LABS: LDL Cholesterol Direct 90 mg/dL (<100)
== END 2024-11-27 06:23 | disposition home or self-care (01) ==
LOC: HO.LAB 06:22
PROVIDERS: Absent Provider General Practice; PCP Internal Medicine; Visit Provider Internal Medicine
DX: Z00.01 Encounter for general adult medical examination with abnormal findings (principal); R73.01 Impaired fasting glucose; R79.89 Other specified abnormal findings of blood chemistry; F31.77 Bipolar disorder, in partial remission, most recent episode mixed; D70.9 Neutropenia, unspecified; K58.9 Irritable bowel syndrome, unspecified; F31.32 Bipolar disorder, current episode depressed, moderate; Z79.899 Other long term (current) drug therapy
CPT/HCPCS: 36415; 80053; 80178; 83036; 83721; 84443; 85025

== ENCOUNTER 2024-12-11 09:58 | Outpatient (AMB) | payer OTHER, SELFPAY ==
--- NOTE | 2024-12-11 10:01 | A.OFFPC_ITS ---
Vital Signs 12/11/24 10:06 Height 5 ft 8 in Weight 172 lb 6 oz BMI 26.2 BP 146/92 H Blood Pressure Location Rt brachial Position Sitting Pulse 100 Pulse Source Pulse Oximeter Temp 98.8 F Temp Source Oral Pulse Oximetry (%) 97 Oxygen Delivery Method Room Air Intake Visit Reasons: persistent nausea Allergies penicillin V Allergy (Unknown, Verified 12/11/24 10:09) anaphylaxis Sulfa (Sulfonamide Antibiotics) Allergy (Unknown, Verified 12/11/24 10:09) fixed drug eruption asprin Adverse Reaction (Intermediate, Uncoded 01/19/24 09:55) Unknown Medication List - Last Reconciled 12/11/24 by Vipul Duran MD acetaminophen (Tylenol) 325 mg PO QID PRN bismuth subsalicylate (Pepto-Bismol) 2 tabs PO Q1H PRN clonazepam 0.5 mg PO TID PRN [famotidine 10 mg PO DAILY PRN] fluticasone propionate 50 mcg/actuation (Flonase Allergy Relief) 1 spray intranasal DAILY 30 days lactase (Lactaid) 3,000 units PO QID PRN lithium carbonate mg PO [peppermint oil 200 mg PO DIRECTED] trazodone 50 mg PO BEDTIME venlafaxine ER 75 mg PO DAILY Tobacco use date assessed: 12/11/24 Dental Screening Dental Screen Date: 12/11/24 Did you have a dental visit in the last 12 months?: Yes Did you have a dental problem in the last 6 months where you did not have access to dental care?: No Was dental information given to patient?: Patient has dentist HPI persistent nausea HPI Details - The patient is a 39-year-old male with a history of bipolar disorder currently established with psychiatrist presenting with difficulty sleeping despite current medication regimen: - Chronic insomnia with limited sleep duration of approximately four hours nightly. - Effectiveness of Trazodone as a sleep aid has diminished; experienced heaviness in the eyes without improved sleep. - Clonazepam usage increased recently bu t noted diminished effects, leading to cessation. - Seeks temporary and potentially adjust able sleep medication until subsequent psychiatric evaluation. Has appointment in 2 days - Nausea has developed, linked to substa ntial marijuana consumption - Recognizes need to reduce marijuana us e to alleviate gastrointestinal symptoms. - Mental health background includes PTSD with noted impact on energy levels and avoidance behaviors. - Reports previous high alcohol consumpt ion has ceased and efforts made to reduce other substance use. Problem List - Insomnia - Persistent Nausea - Post-Traumatic Stress Disorder (PTSD) - bipolar disorder - excessive marijuana use Patient Instructions - Reduce marijuana use to help decrease nausea. - Take the prescribed sleep medication A mbien 10 mg 1 at night 5 tablets sent, as directed, utilizing split dosing if needed. - Refrain from using Trazodone while tra iling the new sleep medication. - Follow up with the psychiatrist as valeriano amador. - Avoid potential PTSD triggers by stayi ng home and engaging in calming activities. Review of Systems. - General: No fever no chills - Neurological: No headaches no dizziness - Ear nose throat: No sore throat no hearing difficulty no ear pain - Cardiovascular: No syncope, no chest pain, no palpitations - Gastrointestinal: No nausea vomiting or diarrhea - Endocrine: No polyuria polydipsia no heat intolerance - Genitourinary: No dysuria , no blood in urine Physical Exam General: No acute distress HEENT: No acute findings Neck: Supple Respiratory system: Able to talk in full sentences, no audible wheeze cardiovascular: S1-S2 regular in rate and rhythm Gastrointestinal: Persistent nausea Extremities: No new findings APPRAISAL ANALYST: Alert awake oriented x3 motor sensory intact Skin: Normal turgor Psychiatry: Flight of ideas noted however patient is able to hold conversation and answers appropriately [facility] Medical History Deviated septum Nausea IBS (irritable bowel syndrome) Surgical History History of nasal surgery History of tonsillectomy Family History Paternal Grandfather Prostate cancer Paternal Grandmother Colon cancer Other Mental health disorder Substance use disorder Social History Household Members: None Housing: Apartment Alcohol intake: current Alcohol intake frequency: holidays/special occasions only Patient Tobacco Use Status: Former Tobacco user (20 years ago ) Tobacco use type: Cigarette e-Cigarette/Vaping Use: Never Used Substance Use Type: Marijuana service: No Current occupational status: disabled Cognitive needs: No Hearing needs: No Vision needs: No Questionnaire PHQ-9 Over the last 2 weeks, how often have you been bothered by any of the following problems? 1. Little interest or pleasure in doing things: not at all 2. Feeling down, depressed, or hopeless: not at all 3. Trouble falling or staying asleep, or sleeping too much: not at all 4. Feeling tired or having little energy: not at all 5. Poor appetite or overeating: not at all 6. Feeling bad about yourself - or that you are a failure or have let yourself or your family down: not at all 7. Trouble concentrating on things, such as reading the newspaper or watching television: not at all 8. Moving or speaking so slowly that other people could have noticed. Or the opposite - being so fidgety or restless that you have been moving around a lot more than usual: not at all 9. Thoughts that you would be better off or of hurting yourself in some way: not at all Total score: 0 Depression Screening Interpretation: Negative Depression Screening Done: Yes 91125 - PHQ-9 Billing: Yes Source: Developed by Drs. Reggie Pavon, Edita Casanova, Garcia De Leon and colleagues, with an educational matt from [employer]. Thrive Questionnaire Date Thrive assessed: 12/11/24 I am a: Patient What is your living situation today?: I have a steady place to live Within the past 12 months, did the food you bought not last and you didn't have the money to get more?: Never true Within the past 12 months, did you worry whether your food would run out before you got money to buy more?: Never true Do you have trouble paying for medicines?: No Do you have trouble getting transportation to medical appointments?: No Do you have trouble paying your heating and electricity bill?: I choose not to answer this question Do you have trouble taking care of your child, family member or friend?: I choose not to answer this question Do you have trouble with day-to-day activities such as bathing, preparing meals, shopping, managing finances, etc.?: I choose not to answer this question Are you currently unemployed and looking for a job?: I choose not to answer this question Are you interested in more education?: I choose not to answer this question Please select the resources that you would like help with: None Currently or been in a relationship where the following occur: I choose not to answer THRIVE Score: 0 AUDIT C Alcohol Use Questionnaire (AUDIT-C) 1. How often do you have a drink containing alcohol?: 2-3 times a week 2. How many drinks containing alcohol do you have on a typical day when you are drinking?: 1 or 2 3. How often do you have six or more drinks on one occasion?: Less than monthly Total Score: 4 Score Reviewed/Action Taken: Yes CRIS-7 AMB Questionnaire CRIS-7 Date CRIS - 7 assessed: 12/11/24 Feeling nervous, anxious, or on edge: 0 = Not at all Not being able to stop or control worryin = Not at all Worrying too much about different things: 0 = Not at all Trouble relaxin = Not at all Being so restless that it is hard to sit still: 0 = Not at all Becoming easily annoyed or irritable: 0 = Not at all Feeling afraid as if something awful might happen: 0 = Not at all Total CRIS-7 score (0-4 normal; 5-9 mild; 10-14 moderate; 15-21 severe): 0 Source: Developed by Drs. Reggie Pavon, Edita Casanova, Garcia De Leon and colleagues, with an educational matt from [employer]. CRIS-7 Assessment Billing CRIS-7 Assessment Tool: CRIS-7 Assessment 03972 Physical exam (Primary Care) Vital Signs: Last Vital Signs Temp 98.8 F 12/11/24 10:06 Pulse 100 12/11/24 10:06 BP 146/92 H 12/11/24 10:06 Pulse Ox 97 12/11/24 10:06 Oxygen Delivery Method Room Air 12/11/24 10:06 BMI result Body Mass Index 26.2 Tobacco/Smoking Status: Tobacco use Status Tobacco use date assessed 12/11/24 12/11/24 10:10 Patient Tobacco Use Status Former Tobacco user (20 12/11/24 10:02 years ago ) Tobacco use type Cigarette 12/11/24 10:02 e-Cigarette/Vaping Use Never Used 12/11/24 10:02 PHQ-9: PHQ-9 Score PHQ-9: Total score 0 12/11/24 10:16 Depression Screening Interpretation: Negative Thrive Assessment: Date of Thrive Assessment Date Thrive assessed 12/11/24 12/11/24 10:02 Currently or been in a relationship where the following occur: I choose not to answer Coding Level of Care Code Est Pt Level 4 (34931) Diagnoses Bipolar disorder, in partial remission, most recent episode mixed F31.77 Active/Remission status: in partial remission Most recent bipolar episode type: mixed Psychophysiological insomnia F51.04 Insomnia type: psychophysiologic Marijuana dependence F12.20 Nausea R11.0 Additional Codes CRIS-7 Assessment Billing - CRIS-7 Assessment Tool: CRIS-7 Assessment 87576 ([id number]) PHQ-9 - 73572 - PHQ-9 Billing: Yes ([id number]) Assessment & Plan Assessment & Plan (1) Bipolar disorder: Code(s): F31.9 - Bipolar disorder, unspecified Category: Medical Qualifiers: Active/Remission status: in partial remission Most recent bipolar episode type: mixed Qualified Code(s): F31.77 - Bipolar disorder, in partial remission, most recent episode mixed (2) Insomnia: Code(s): G47.00 - Insomnia, unspecified Category: Medical Qualifiers: Insomnia type: psychophysiologic Qualified Code(s): F51.04 - Psychophysiologic insomnia (3) Marijuana dependence: Code(s): F12.20 - Cannabis dependence, uncomplicated Category: Medical (4) Nausea: Comment: 35-year-old male chronic nausea, anxiety, depression, tobacco as well as marijuana daily. Self diagnoses-no suicidal or homicidal ideation H pylori-negative Code(s): R11.0 - Nausea Category: Medical Plan - The patient is a 39-year-old male with a history of bipolar disorder currently established with psychiatrist presenting with difficulty sleeping despite current medication regimen: - Chronic insomnia with limited sleep duration of approximately four hours nightly. - Effectiveness of Trazodone as a sleep aid has diminished; experienced heaviness in the eyes without improved sleep. - Clonazepam usage increased recently but noted diminished effects, leading to cessation. - Seeks temporary and potentially adjustable sleep medication until subsequent psychiatric evaluation. Has appointment in 2 days - Nausea has developed, linked to substantial marijuana consumption - Recognizes need to reduce marijuana use to alleviate gastrointestinal symptoms. - Mental health background includes PTSD with noted impact on energy levels and avoidance behaviors. - Reports previous high alcohol consumption has ceased and efforts made to reduce other substance use. Problem List - Insomnia - Persistent Nausea - Post-Traumatic Stress Disorder (PTSD) - bipolar disorder - excessive marijuana use Patient Instructions - Reduce marijuana use to help decrease nausea. - Take the prescribed sleep medication Ambien 10 mg 1 at night 5 tablets sent, as directed, utilizing split dosing if needed. - Refrain from using Trazodone while trailing the new sleep medication. - Follow up with the psychiatrist as scheduled. - Avoid potential PTSD triggers by staying home and engaging in calming activities. Medications: New zolpidem (Ambien) 10 mg PO BEDTIME 5 days PRN 5 tabs 0RF sleep
[2024-12-11 10:06] VITALS: BP 146/92; PULSE 100; TEMP 37.1; O2SAT 97; BMI 26.2
--- OUTSIDE RECORDS SUMMARY | 2024-12-11 11:42 | XMS_ITS | Encounter Summary ---
Author Organization [facility] Address [address] [place] [address] Care Team Providers Care Receiving Lead Name Role Phone Physician, No Pcp Primary Care Provider Unavaila ble Reason for Visit * Reason Comments Panic Attack C/o feeling of impe nding doom , chest tightness, with strong history of anxiety and panic attacks. States he was triggered earlier today and has had no success in trying to calm himself or his symptoms. Encounter Details Date Type Department Care Team (Late st Contact Info) Description 11/13/2024 1:38 AM EST - 11/13/2024 2:52 AM EST Emergency [facility] Emergency Department [address] [place] [id number] Viridiana Church MD [address], [place] Anxiety (Primary Dx) Discharge Disposition: Home or Self Care Social History Tobacco Use Types Packs/Day Years Used Date Smoking Tobacco: Every Day Cigarettes Smokeless Tobacco: Never Tobacco Cessation:Ready to Q uit: Not Asked; Counseling Given: Not Answered Alcohol Use Standard Drinks/Week Comments Yes 0 (1 standard drink = 0.6 oz pur e alcohol) few times a week Sex and Gender Information Value Date Recorded Sex Assigned at Not on file Legal Sex Male 11:24 PM EST Gender Identity Not on file Sexual Orientation Not on file Travel History Travel Start Travel End [place] 10/30/2024 11/12/2024 documented as of this encounter Last Filed Vital Signs Vital Sign Reading Time Taken Comments Blood Pressure 145/93 11/13/2024 2:44 AM EST Pulse 78 11/13/2024 2:44 AM EST Temperature 36.6 ??C (97.9 ??F) 11/13/2024 2:44 AM ES T Respiratory Rate 16 11/13/2024 2:44 AM EST Oxygen Saturation 100% 11/13/2024 2:44 AM EST Inhaled Oxygen Concentration - - Weight 78.2 kg (172 lb 6.4 oz) 11/12/2024 11:49 PM EST Height 181.6 cm (5' 11.5 ) 11/12/2024 11:[address] Body Mass Index 23.71 11/12/2024 11:49 PM EST documented in this encounter Discharge Instructions * Attachments The following attachments cannot be sent through Care Everywhere. * Anxiety Disorder (Persian) documented in this encounter Medications at Time of Discharge clonazePAM (KlonoPIN) 0.5 mg tabletIndications :panic disorder Take 1 tablet (0.5 mg total) by mouth 2 (two) times a day. Max Daily Amount: 1 mg clonazePAM (KlonoPIN) 0.5 mg tablet Take 1 tablet (0.5 mg total) by mouth 2 (two) times a day for 3 days. Max Daily Amount: 1 mg 6 each 11/13/2024 lithium 150 mg capsule Take 1 capsule (150 mg total) by mouth 3 (three) times a day with meals. traZODone (DESYREL) 50 mg tabletIndications :insomnia associated with depression Take 1 tablet (50 mg total) by mouth at bedtime. venlafaxine (EFFEXOR) 75 mg tabletIndications :generalized anxiety disorder Take 1 tablet (75 mg total) by mouth 1 (one) time each day. documented as of this encounter Ordered Prescriptions Prescription Sig Dispense Quantity Refills Last Filled Start Date End Date clonazePAM (KlonoPIN) 0.5 mg tablet Take 1 tablet (0.5 mg total) by mouth 2 (two) times a day for 3 days. Max Daily Amount: 1 mg 6 each 11/13/2024 documented in this encounter Discharge Disposition Disposition Code Departure Means Destination Comment s Home or Self Care documented in this encounter Progress Notes * Viridiana Church MD - 11/12/2024 11:24 PM EST Images from the original note were not included. ED Provider Note HPI Chief Complaint Patient presents with Panic Attack C/o feeling of impending doom , chest tightness, with strong history of anxiety and panic attacks.States he was triggered earlier today and has had no success in trying to calm himself or his symptoms. Vital Signs and Nursing Documentation were reviewed. 39-year-old male with a history of bipolar disorder and anxiety presents to the emergency department complaining of worsening anxiety. He states he has a feeling of impending doom and is having some palpitations. He states he was having some shortness of breath and chest tightness however that is currently resolved. Patient states that he is traveling back up to [place] where he lives. He states he normally takes Klonopin but does not have any currently. He denies any plans of suicide or homicide. He denies any hallucinations. He notes that he does feel safe. He notes that the holidays are always a difficult time for him and so he used more Klonopin than usual. He states that he was on 3 times a day but has been decreased to 1-2 times a day. He denies any fevers or chills. He deniesany congestion or sore throat. He notes some chronic GI issues and intermittent issues with diarrhea. Arley Coma Scale Score: 15 Review of Systems Review of Systems Constitutional: Negative for chills and fever. HENT: Negative for congestion and sore throat. Respiratory: Positive for chest tightness and shortness of breath. Negative for cough. Cardiovascular: Positive for palpitations. Gastrointestinal: Positive for diarrhea. Negative for abdominal pain. Neurological: Negative for headaches. Psychiatric/Behavioral: Negative for hallucinations, self-injury and suicidal ideas. The patient isnervous/anxious. Patient History Past Medical History: Diagnosis Date Anxiety Bipolar I disorder ([facility]) PTSD (post-traumatic stress disorder) There are no problems to display for this patient. Allergies Allergen Reactions Bactrim [Sulfamethoxazole-Trimethoprim] Anaphylaxis Drug eruption with bruising all over body Penicillins As a child Home Medications clonazePAM (KlonoPIN) 0.5 mg tablet Take 1 tablet (0.5 mg total) by mouth 2 (two) times a day. Max Daily Amount: 1 mg lithium 150 mg capsule Take 1 capsule (150 mg total) by mouth 3 (three) times a day with meals. traZODone (DESYREL) 50 mg tablet Take 1 tablet (50 mg total) by mouth at bedtime. venlafaxine (EFFEXOR) 75 mg tablet Take 1 tablet (75 mg total) by mouth 1 (one) time each day. Past Surgical History: Procedure Laterality Date NASAL SEPTUM SURGERY TONSILLECTOMY WISDOM TOOTH EXTRACTION Social History Socioeconomic History Marital status: Unknown Spouse name: Not on file Number of children: Not on file Years of education: Not on file Highest education level: Not on file Occupational History Not on file Tobacco Use Smoking status: Every Day Types: Cigarettes Smokeless tobacco: Never Vaping Use Vaping status: Never Used Substance and Sexual Activity Alcohol use: Yes Comment: few times a week Drug use: Yes Types: Marijuana/Cannabis Sexual activity: Not on file Other Topics Concern Not on file Social History Narrative Not on file No family history on file. Physical Exam Vitals: 11/13/24 0244 BP: (!) 145/93 Pulse: 78 Resp: 16 Temp: 36.6 ??C (97.9 ??F) SpO2: 100% Physical Exam Vitals and nursing note reviewed. Constitutional: Appearance: Normal appearance. HENT: Head: Normocephalic and atraumatic. Cardiovascular: Rate and Rhythm: Normal rate and regular rhythm. Pulmonary: Effort: Pulmonary effort is normal. No respiratory distress. Musculoskeletal: General: Normal range of motion. Neurological: Mental Status: He is alert. Comments: Moves all extremities, follows commands Psychiatric: Attention and Perception: Attention normal. Mood and Affect: Affect normal. Behavior: Behavior normal. Behavior is cooperative. Thought Content: Thought content normal. Thought content does not include homicidal or suicidal plan. ED Course & MDM Labs Reviewed - No data to display No orders to display Medications - No data to display Clinical Impressions as of 11/13/24 0547 Anxiety Procedures Differential Diagnosis: Medical Decision Making 39-year-old male presenting to the emergency department with anxiety. He notes that he is out of his medication and is driving back home and was unable to sleep tonight due to his anxiety. He states that he was having palpitations and chest tightness however those have all resolved currently. He has stable vital signs and is nontoxic-appearing. He declines workup for the palpitations or chest tightness stating that he knows that this is part of his anxiety. Patient will be given a short course of his Klonopin. He feels safe currently with no plans for suicide or homicide and no hallucinations. He states he does have a mental health provider back in [place] and will contact them once they get home. Patient was given strict return to ER precautions and is comfortable with plan for discharge. I reviewed all triage and nursing documentation. I reviewed any or all labs/radiology and discussedthe diagnosis, medications, and home care with the patient. Patient agrees to follow-up as discussed and return to the ER for any new or worsening symptoms. Patient is comfortable with the plan for discharge. All questions were answered. Risk Prescription drug management. Decision rules/scores evaluated: []HEART Score: []PERC Rule: []Wells Criteria for PE: []Wells Criteria for DVT: []NEXUS C-spine Criteria: []Shinnecock Ankle Rule: []Shinnecock Knee Rule: 1. Anxiety ED Prescriptions Medication Sig Dispense Start Date End Date Auth. Provider clonazePAM (KlonoPIN) 0.5 mg tablet Take 1 tablet (0.5 mg total) by mouth 2 (two) times a day for 3days. Max Daily Amount: 1 mg 6 each 11/13/2024 11/16/2024 Viridiana Church MD Follow Up information: [facility] [address] [facility] [facility] [id number] Follow-up with your doctor, or if you do not have one, follow-up with family medicine at [facility]. Viridiana Church MD 11/13/24 0300 Viridiana Church MD 11/13/24 0576 documented in this encounter Plan of Treatment Not on file documented as of this encounter Visit Diagnoses Diagnosis Anxiety- Primary Anxiety state, unspecified documented in this encounter Historical Medications * This list may reflect changes made after this encounter. traZODone (DESYREL) 50 mg tabletIndications :insomnia associated with depression Take 1 tablet (50 mg total) by mouth at bedtime. venlafaxine (EFFEXOR) 75 mg tabletIndications :generalized anxiety disorder Take 1 tablet (75 mg total) by mouth 1 (one) time each day. lithium 150 mg capsule Take 1 capsule (150 mg total) by mouth 3 (three) times a day with meals. clonazePAM (KlonoPIN) 0.5 mg tabletIndications :panic disorder Take 1 tablet (0.5 mg total) by mouth 2 (two) times a day. Max Daily Amount: 1 mg added in this encounter Care Teams Receiving Lead Relationship Specialty Start Date End Date Physician, No Pcp PCP - General 11/13/24 documented as of this encounter
--- OUTSIDE RECORDS SUMMARY | 2024-12-11 11:42 | XMS_ITS | Clinical Summary ---
Author [place] [facility] [place] [address] [place] [address] Phone Care Team Providers Care Auth Specialist Name Role Phone Physician, No Pcp Primary Care Provider Unavaila ble Allergies Active Allergy Reactions Criticality Noted Date Comments Sulfamethoxazole-Trimethopr im Anaphylaxis High 11/12/2024 Drug eruption with bruising all over body Penicillins 11/12/2024 As a child Medications clonazePAM (KlonoPIN) 0.5 mg tabletIndicatio ns:panic disorder Take 1 tablet (0.5 mg total) by mouth 2 (two) times a day. Max Daily Amount: 1 mg Active lithium 150 mg capsule Take 1 capsule (150 mg total) by mouth 3 (three) times a day with meals. Active venlafaxine (EFFEXOR) 75 mg tabletIndicatio ns:generalized anxiety disorder Take 1 tablet (75 mg total) by mouth 1 (one) time each day. Active traZODone (DESYREL) 50 mg tabletIndicatio ns:insomnia associated with depression Take 1 tablet (50 mg total) by mouth at bedtime. Active clonazePAM (KlonoPIN) 0.5 mg tablet Take 1 tablet (0.5 mg total) by mouth 2 (two) times a day for 3 days. Max Daily Amount: 1 mg 6 each 11/13/2024 Active Active Problems No known active problems Encounters Date Type Department Care Team Description 11/13/2024 1:38 AM EST - 11/13/2024 2:52 AM EST [place] [facility] [place] [address] [place] [id number] Viridiana Church MD Anxiety (Primary Dx) Discharge Disposition: Home or Self Care from Last 3 Months Surgical History Surgery Date Site/Laterality Comments TONSILLECTOMY NASAL SEPTUM SURGERY WISDOM TOOTH EXTRACTION Medical History Medical History Date Comments Anxiety Bipolar I disorder (CMS/HCC) PTSD (post-traumatic stress disorder) Social History Tobacco Use Types Packs/Day Years [...] file Travel History Travel Start Travel End [place] 10/30/2024 11/12/2024 Obstetrics History Last Filed Vital Signs Vital Sign Reading [...] Mass Index 23.71 11/12/2024 11:49 PM EST Plan of Treatment Health Maintenance Due Date Last Done Comments DTaP,Tdap,and Td Vaccines (1 - Tdap) 2002 Hepatitis B Vaccines (1 of 3 - 19+ 3-dose series) 2002 Pneumococcal Vaccine: Pediat rics (0 to 5 Years) and At-Risk Patients (6 to 64 Years) (1 of 2 - PCV) 2002 COVID-19 Vaccine (2023-2 5 season) 2024 Influenza Vaccine (#1) 2024 Cholesterol Screening (Lipid Panel) 11/13/2024 04/24/2019 Depression Screening 11/13/2024 HIV Screening 11/13/2024 Hepatitis C Screening 11/13/2024 Medicare Annual Wellness Visit 11/13/2024 Social Influencers of Health Screening 11/13/2024 HIB Vaccines Aged Out No longer eligi ble based on patient's age to complete this topic HPV Vaccines Aged Out No longer eligi ble based on patient's age to complete this topic Hepatitis A Vaccines Aged Out No long er eligible based on patient's age to complete this topic IPV Vaccines Aged Out No longer eligi ble based on patient's age to complete this topic MMR Vaccines Aged Out No longer eligi ble based on patient's age to complete this topic Meningococcal ACWY Vaccine Aged Out N o longer eligible based on patient's age to complete this topic Meningococcal B Vacine Aged Out No lo nger eligible based on patient's age to complete this topic RSV Immunization Patients Un trip 20 months Aged Out No longer eligible b ased on patient's age to complete this topic Varicella Vaccines Aged Out No longer eligible based on patient's age to complete this topic Insurance [employer] MEDICARE Member Subscriber Plan / Payer (Ef fective 2021-Present) Name:Edwardo Ram III Relation to Subscriber:Self Name:Edwardo Ram III Payer ID:[id number] Group ID:[id number] Type:Not on file Address: [facility] [address] [address] Care Teams Auth Specialist Relationship Specialty Start Date End Date Physician, No Pcp PCP - General 11/13/24
== END 2024-12-11 11:17 | disposition home or self-care (01) ==
PROVIDERS: PCP Internal Medicine; Visit Provider Internal Medicine
DX: F31.77 Bipolar disorder, in partial remission, most recent episode mixed (principal); F51.04 Psychophysiologic insomnia; F12.20 Cannabis dependence, uncomplicated; R11.0 Nausea

== ENCOUNTER → 2024-12-11 09:58 | Outpatient (BNVA) | payer OTHER, SELFPAY | PROVIDERS: PCP Internal Medicine; Visit Provider Internal Medicine | DX: F31.77 Bipolar disorder, in partial remission, most recent episode mixed (principal); F51.04 Psychophysiologic insomnia; F12.20 Cannabis dependence, uncomplicated; R11.0 Nausea | CPT/HCPCS: 96127; 99212 ==

== ENCOUNTER 2025-02-18 10:56 | Outpatient (REF) | payer OTHER, SELFPAY ==
[2025-02-18 12:20] LABS: Lithium 0.26 mmol/L (0.60-1.20)
[2025-02-18 12:29] LABS: Anion Gap 10 (12-20); Blood Urea Nitrogen 14 mg/dL (9-16); Calcium 9.2 mg/dL (8.4-10.2); Carbon Dioxide 30 mmol/L (22-29); Chloride 104 mmol/L (96-108); Estimated Glomerular Filt Rate > 60; Potassium 4.4 mmol/L (3.3-5.1); Sodium 140 mmol/L (135-145)
--- OUTSIDE RECORDS SUMMARY | 2025-02-18 13:03 | XMS_ITS | Clinical Summary ---
Author Organization [facility] [address] [place] [address] Phone Care Team Providers Care Med Spa Manager Name Role Phone Physician, No Pcp Primary [...] Active Active Problems No known active problems Surgical History Surgery Date Site/Laterality Comments TONSILLECTOMY NASAL SEPTUM SURGERY WISDOM TOOTH EXTRACTION Medical History Medical History Date Comments Anxiety Bipolar I disorder (CMS/HCC V24, CMS/HCC V28) PTSD (post-traumatic stress disorder) Social History Tobacco [...] on file Sexual Orientation Not on file Obstetrics History Last Filed Vital Signs Vital [...] 2002 COVID-19 Vaccine (2023-2 5 season) 2024 Cholesterol Screening (Lipid Panel) 11/13/2024 04/24/2019 Depression Screening 11/13/2024 HIV Screening 11/13/2024 Hepatitis C Screening 11/13/2024 Medicare Annual Wellness Visit 11/13/2024 Social Influencers of Health Screening 11/13/2024 Influenza Vaccine (Season Ended) 2025 HIB Vaccines Aged Out No longer eligi [...] age to complete this topic Meningococcal B Vaccine Aged Out No l onger eligible based on patient's age to complete [...] ID:[id number] Group ID:[id number] Type:Not on file Address: [facility] [address] [address] Care Teams Med Spa Manager Relationship Specialty Start Date End Date Physician, No Pcp PCP - General 11/13/24
== END 2025-02-18 10:57 | disposition home or self-care (01) ==
LOC: HO.LAB 10:56
PROVIDERS: PCP Internal Medicine; Visit Provider General Practice
DX: F31.32 Bipolar disorder, current episode depressed, moderate (principal); Z79.899 Other long term (current) drug therapy
CPT/HCPCS: 36415; 80051; 80178; 82310; 82565; 84520

== ENCOUNTER 2025-06-25 09:15 | Outpatient (AMB) | payer OTHER, SELFPAY ==
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
[2025-06-25 09:21] VITALS: BP 136/80; PULSE 86; RESP 20; TEMP 36.8; O2SAT 99; BMI 25.1
--- OUTSIDE RECORDS SUMMARY | 2025-06-25 09:45 | XMS_ITS | Encounter Summary ---
Author Organization [facility] Address [address] [place] [address] [place] [id number] Phone Care Team Providers Care Kayak Maker Name Role Phone Pcp, Unknown Primary Care Provider Vipul Sandoval MD Primary Care Provider [phone] Encounter Details Date Type Department Care Team (Late st Contact Info) Description 02/05/2020 Transcribe Orders [facility] [address] [place] [address] [place] [address] Jad Ibarra MD [address] [place] [address] [email or web address] Severe manic bipolar I disorder with psychotic features (Primary Dx); Encounter for long-term (current) use of other medications Social History Tobacco Use Types Packs/Day Years Used Date Smoking Tobacco: Never Smokeless Tobacco: Never Alcohol Use Standard Drinks/Week Comments Yes 0 (1 standard drink = 0.6 oz pur e alcohol) Sex and Gender Information Value Date Recorded Sex Assigned at Male 08/04/2018 8:13 PM EDT Legal Sex Male 8:24 AM EDT Gender Identity Male 08/04/2018 8:13 PM EDT Sexual Orientation Straight 08/04/2018 8: 13 PM EDT documented as of this encounter Plan of Treatment Not on file documented as of this encounter Results * Ammonia (02/05/2020 10:41 AM EDT) AMMONIA 63 28 - 80 umol/L [facility] Blood 02/05/2020 10:4 1 AM EDT 02/05/2020 10:43 AM EDT us Jad Ibarra MD LAB BLOOD ORDERABLES Final Result Performing Organization Address City/[facility]/ZIP Co de Phone Number [address] [address] * (ABNORMAL) Valproic acid (02/05/2020 10:41 AM EDT) Pathologist [facility] VALPROIC ACID 115.4(H) 50.0 - 100.0 ug/mL [facility] Blood 02/05/2020 10:4 1 AM EDT 02/05/2020 10:43 AM EDT Jad Ibarra MD LAB BLOOD ORDERABLES Final Result Performing Organization Address [facility] de Phone Number [address] [address] * (ABNORMAL) CBC and differential (02/05/2020 10:41 AM EDT) [facility] WBC 5.07 4.00 - 11.00 K/uL [facility] Comment:Note Reference Range updates to all CBC and Differential results. RBC 5.04 4.23 - 5.82 M/uL [facility] HGB 15.6 13.4 - 17.5 g/dL [facility] Comment:Note updated Referen ce Ranges for all CBC and Differential results. HCT 43.0 37.0 - 51.0 % [facility] PLT 201 140 - 430 K/uL [facility] MCV 85.3 78.0 - 97.0 fL [facility] MCH 31.0 25.0 - 33.0 pg [facility] MCHC 36.3(H) 32.0 - 36.0 g/dL [facility] RDW 11.5 11.0 - 15.0 % [facility] MPV 9.3 8.4 - 12.8 [facility] NRBC 0.00 0 /100 WBCs [facility] ABSOLUTE NRBC 0.00 0 K/uL [facility] DIFF METHOD Auto [facility] NEUTS 38.4(L) 43.0 - 75.0 % [facility] LYMPHS 47.9(H) 18.2 - 47.4 % [facility] MONOS 10.3 4.00 - 11.00 % [facility] EOS 2.6 0.0 - 8.0 % [facility] BASOS 0.6 0.0 - 2.0 % [facility] Granulocytes, immature (%) 0.2 0.0 - 0.9 % [facility] ABSOLUTE NEUTS 1.95 1.80 - 7.70 K/uL [facility] ABSOLUTE LYMPHS 2.43 1.00 - 3.10 K/uL [facility] ABSOLUTE MONOS 0.52 0.20 - 0.80 K/uL [facility] ABSOLUTE EOS 0.13 0.00 - 0.80 K/uL [facility] ABSOLUTE BASOS 0.03 0.00 - 0.09 K/uL [facility] Granulocytes, immature 0.01 0.00 - 0.05 K/uL [facility] Blood 02/05/2020 10:4 1 AM EDT 02/05/2020 10:43 AM EDT us Jad Ibarra MD LAB BLOOD ORDERABLES Final Result Performing Organization Address City/State/[facility] Co de Phone Number [address] [address] * (ABNORMAL) Comprehensive metabolic panel (02/05/2020 10:41 AM EDT) SODIUM 131(L) 133 - 146 mmol/L [facility] POTASSIUM 4.8 3.3 - 5.1 mmol/L [facility] CHLORIDE 91(L) 96 - 108 mmol/L [facility] CO2 31 21 - 35 mmol/L [facility] BUN 12 6 - 19 mg/dL [facility] CREATININE 0.90 0.5 - 1.5 mg/dL [facility] GLUCOSE 89 70 - 99 mg/dL [facility] ALBUMIN 5.0(H) 3.9 - 4.8 g/dL [facility] TOTAL PROTEIN 6.8 6.5 - 8.0 g/dL [facility] CALCIUM 9.5 8.4 - 10.3 mg/dL [facility] ALKALINE PHOSPHATASE 49 39 - 117 U/L [facility] TOTAL BILIRUBIN 1.3(H) 0.0 - 1.2 mg/dL [facility] AST 30 0 - 37 U/L [facility] ALT 43(H) 0 - 40 U/L [facility] GLOBULIN 1.8 1 - 4.8 g/dL [facility] EGFR 109 >59 mL/min/1.7 3m2 [facility] Comment:If patient is black, multiply result by 1.159. Estimated glomerular filtration rate calculated using the CKD-EPI equation. ANION GAP 14 10 - 20 mmol/L [facility] Blood 02/05/2020 10:4 1 AM EDT 02/05/2020 10:43 AM EDT us Jad Ibarra MD LAB BLOOD ORDERABLES Final Result Performing Organization Address City/State/[facility] Co de Phone Number [address] [address] documented in this encounter Visit Diagnoses Diagnosis Severe manic bipolar I disorder with psychotic features- Primary Bipolar I disorder, most recent episode (or current) manic, severe, specified as with psychotic behavior Encounter for long-term (current) use of other medications documented in this encounter Care Teams Kayak Maker Relationship Specialty Start Date End Date Pcp, Unknown PCP - General 02/05/20 02/06/20 Vipul Duran MD [address] [place] [address] [place] [address] PCP - General Internal Medicine 02/07/20 documented as of this encounter Additional Source Comments The information contained in this document represents components of the legal health record. It is not the complete legal health record.[facility]
--- OUTSIDE RECORDS SUMMARY | 2025-06-25 09:45 | XMS_ITS | Encounter Summary ---
Author Organization [facility] Address [address] [place] [address] [address] [place] [address] Phone Care Team Providers Care Administrator Pesticide Name Role Phone Yajaira Landrum MD, MPH Primary Care Provid er Pcp, Unknown Primary Care Provider Vipul Sandoval MD Primary Care Provider [phone] Encounter Details Date Type Department Care Team (Latest Contact Info) Description 08/15/2018 Transcribe Orders [facility] [address] [place] [address] Bacilio Pugh MD [address] [place] [address] Diagnosis unknown (Primary Dx) Social History Tobacco Use Types Packs/Day Years [...] documented as of this encounter Results * (ABNORMAL) Comprehensive metabolic panel (08/15/2018 4:20 PM EDT) SODIUM 142 133 - 146 mmol/L [facility] POTASSIUM 3.9 3.3 - 5.1 mmol/L [facility] CHLORIDE 101 96 - 108 mmol/L [facility] CO2 27 21 - 35 mmol/L [facility] BUN 14 6 - 19 mg/dL [facility] CREATININE 0.70 0.5 - 1.5 mg/dL [facility] GLUCOSE 78 70 - 99 mg/dL [facility] ALBUMIN 4.8 3.9 - 4.8 g/dL [facility] TOTAL PROTEIN 6.7 6.5 - 8.0 g/dL [facility] CALCIUM 9.4 8.4 - 10.3 mg/dL [facility] ALKALINE PHOSPHATASE 48 39 - 117 U/L [facility] TOTAL BILIRUBIN 0.9 0.0 - 1.2 mg/dL [facility] AST 35 0 - 37 U/L [facility] ALT 67(H) 0 - 40 U/L [facility] GLOBULIN 1.9 1 - 4.8 g/dL [facility] EGFR >120 >59 mL/min/1.7 3m2 [facility] Comment:If patient is black, multiply result by 1.159. Estimated glomerular filtration rate calculated using the CKD-EPI equation. ANION GAP 18 10 - 20 mmol/L [facility] Blood 08/15/2018 4:20 PM EDT 08/15/2018 4:22 PM EDT Bacilio Pugh MD LAB BLOOD ORDERABLES Final Re sult [facility] [address] [place] [address] documented in this encounter Visit Diagnoses Diagnosis Diagnosis unknown- Primary documented in this encounter Care Teams Administrator Pesticide Relationship Specialty Start Date End Date Yajaira Landrum MD, MPH [address] [facility] [address] [address] [email or web address] PCP - General Family Medicine 08/04/18 02/04/20 Pcp, Unknown PCP - General 02/05/20 02/06/20 Vipul Duran MD [address] [facility] [place] [address] PCP - General Internal Medicine 02/07/20 documented as of this encounter Additional Source Comments The information contained in this document represents components of the legal health record. It is not the complete legal health record.[facility]
--- OUTSIDE RECORDS SUMMARY | 2025-06-25 09:45 | XMS_ITS | Clinical Summary ---
Author Organization [facility] Address [address] [place] [address] Phone Care Team Providers Care Retail Agent Name Role Phone Physician, No Pcp Primary [...] 78 11/13/2024 2:44 AM EST Temperature 36.6 C (97.9 F) 11/13/2024 2:44 AM EST Respiratory Rate 16 11/13/2024 2:44 AM EST [...] 5 Years) and At-Risk Patients (6 to 49 Years) (1 of 2 - PCV) 2002 COVID-19 Vaccine (2023-2 5 season) 2024 Depression Screening 10/30/2024 Cholesterol Screening (Lipid Panel) 11/13/2024 04/24/2019 HIV Screening 11/13/2024 Hepatitis C Screening 11/13/2024 Medicare Annual Wellness Visit 11/13/2024 Social Influencers of Health Screening 11/13/2024 Influenza Vaccine (#1) 2025 HIB Vaccines Aged Out No longer [...] patient's age to complete this topic Insurance [address] [place] [address] [employer] MEDICARE Member Subscriber Plan / Payer (Ef fective 2021-Present) Name:Edwardo Ram III Relation to Subscriber:Self Name:Edwardo Ram III Payer ID:[id number] Group ID:[id number] Type:Not on file Address: [facility] [address] [address] Care Teams Retail Agent Relationship Specialty Start Date End Date Physician, No Pcp PCP - General 11/13/24
--- OUTSIDE RECORDS SUMMARY | 2025-06-25 09:45 | XMS_ITS | Encounter Summary ---
Author Organization [facility] Address [address] [place] [address] [place] [address] Phone Care Team Providers Care Ornament Stitcher Name Role Phone Yajaira Landrum MD, MPH Primary Care Provid er Pcp, Unknown Primary Care Provider Vipul Sandoval MD Primary Care Provider [phone] Encounter Details Date Type Department Care Team (Late st Contact Info) Description 02/18/2019 Transcribe Orders Virtual Department [address] [place] [address] Jad Ibarra MD [address] [place] [address] [email or web address] High risk medication use (Primary Dx) Social History Tobacco Use Types [...] documented as of this encounter Results * ECG 12-LEAD (05/09/2019 3:37 PM EDT) Ventricular Rate EKG/MIN 51 BPM [facility] Atrial Rate 51 BPM [facility] IN Interval 154 ms [facility] QRS Duration 92 ms [facility] QT Interval 406 ms [facility] QTC Interval 374 ms [facility] P [place] 66 degrees [facility] R Wave [place] 70 degrees [facility] T Wave [place] 54 degrees [facility] 05/09/2019 3:37 PM EDT 05/10/2019 2:58 PM EDT Narrative [facility] - 05/10/2019 2:58 PM EDT Sinus bradycardia with sinus arrhythmia Early repolarization Otherwise normal ECG No previous ECGs available Confirmed by ALEJANDRA GASCA MD ([id number]) on 05/10/2019 2:58:21 PM us Jad Ibarra MD ECG ORDERABLES Final Resul t [facility] documented in this encounter Visit Diagnoses Diagnosis High risk medication use- Primary High risk medication use documented in this encounter Care Teams Ornament Stitcher Relationship Specialty Start Date End Date Yajaira Landrum MD, MPH [address] [place] [phone] [email or web address] PCP - General Family Medicine 08/04/18 02/04/20 Pcp, Unknown PCP - General 02/05/20 02/06/20 Vipul Duran MD [address] [place] [address] [place] [address] PCP - General Internal Medicine 02/07/20 documented as of this encounter Additional Source Comments The information contained in this document represents components of the legal health record. It is not the complete legal health record.[facility]
--- OUTSIDE RECORDS SUMMARY | 2025-06-25 09:45 | XMS_ITS | Clinical Summary ---
Author Organization [facility] Address [address] [place] [address] Phone Care Team Providers Care Time Broker Name Role Phone Vipul Duran MD Primary Care Provider [phone] Allergies Active Allergy Reactions Criticality Noted Date Comments Garlic 09/25/2024 Onion 09/25/2024 Penicillins 08/04/2018 Sertraline 08/06/2018 Sulfamethoxazole-Trimethopr im Anaphylaxis High 08/04/2018 Drug eruption with bruising all over body Medications * This document contains information received from the source organization and may not represent a complete record from that organization. fluticasone propionate (FLONASE) 50 mcg/actuation nasal spray 1 spray by Nasal route daily. Active hydrOXYzine (ATARAX) 50 MG tablet Take 1 tablet (50 mg total) by mouth every 6 (six) hours as needed for anxiety. 28 tablet 8 Active Additional Information Patient not taking.Reported on 11/22/2024 clonazePAM (KLONOPIN) 0.5 MG tablet Take 1 tablet by mouth 2 (two) times a day as needed. 4 Active traZODone (DESYREL) 50 MG tablet Take 50 mg by mouth nightly at bedtime as needed. Active venlafaxine (EFFEXOR-XR) 75 MG 24 hr capsule Take 75 mg by mouth every morning. Active lithium carbonate 150 mg capsule Take 150 mg by mouth. Active Active Problems Problem Noted Date Diagnosed Date Bipolar affective disorder, manic 08/06/2018 Social History Tobacco Use Types Packs/Day Years Used Date Smoking Tobacco: Never Smokeless Tobacco: Never Alcohol Use Standard Drinks/Week Comments Yes 0 (1 standard drink = 0.6 oz pur e alcohol) Education Answer Date Recorded Are you interested in more education? Not on elin e 02/24/2023 Are you concerned about learning? Not on file 02/24/2023 No 02/24/2023 No 02/24/2023 Digital Access Answer Date Recorded No 03/28/2023 No 03/28/2023 Reliable internet access at home? Not on file 03/28/2023 Device with a working camera? Not on file Intimate Partner Violence Answer Date R ecorded Are you denied basic needs s uch as food, clothing, or medical care? No 09/25/2024 In the past 12 months have y ou been in a relationship with a person who hurts, threatens, or tries to control you? No 09/25/2024 Are you denied basic needs s uch as food, clothing, or medical care? No 09/25/2024 In the past 12 months have y ou been in a relationship with a person who hurts, threatens, or tries to control you? No 09/25/2024 Sex and Gender Information Value Date Recorded Sex Assigned at Male 08/04/2018 8:13 PM EDT Legal Sex Male 8:24 AM EDT Gender Identity Male 08/04/2018 8:13 PM EDT Sexual Orientation Straight 08/04/2018 8: 13 PM EDT Last Filed Vital Signs Vital Sign Reading Time Taken Comments Blood Pressure 142/88 11/22/2024 8:32 AM EST Pulse 66 11/22/2024 8:32 AM EST Temperature 37.1 C (98.8 F) 11/22/2024 8:32 AM EST Respiratory Rate 17 11/22/2024 8:32 AM EST Oxygen Saturation 98% 11/22/2024 8:32 AM EST Inhaled Oxygen Concentration - - Weight 79.4 kg (175 lb) 11/22/2024 8:32 AM EST Height 180.3 cm (5' 11 ) 11/22/2024 8:32 AM EST Body Mass Index 24.41 11/22/2024 8:32 AM EST Plan of Treatment Health Maintenance Due Date Last Done Comments Adult Td,Tdap Booster 1983 LITHIUM LEVEL 1983 DEPRESSION SCREENING 1995 HEPATITIS C SCREENING 2001 HIV ONE-TIME SCREENING (18-65 YEARS) 2001 TSH LEVEL 02/28/2020 02/27/2019 LIPID PANEL 04/24/2024 04/24/2019, 02/27/2019 COVID-19 VACCINE ( season) 2024 01/31/2021, 01/10/2021 CREATININE LEVEL 09/25/2025 09/25/2024, 05/2020, 02/27/2019, Additional history exists SMOKING STATUS SCREENING (Once After 26 Yrs) Completed 11/22/2024 HEPATITIS A VACCINES Aged Out No long er eligible based on patient's age to complete this topic HIB VACCINES Aged Out No longer eligi ble based on patient's age to complete this topic MENINGOCOCCAL VACCINES (ACWY) Aged Out No longer eligible based on patient's age to complete this topic MENINGOCOCCAL VACCINES (B) Aged Out N o longer eligible based on patient's age to complete this topic PNEUMOCOCCAL VACCINES (0-49 years) Aged Out No longer eligible based on patient's age to complete this topic Medical Devices Not on file Procedures Procedure Name Priority Date/Time Associated Diagnosis Comments BASIC METABOLIC PANEL STAT 09/25/2024 1:44 PM EST LIPID PANEL Routine 04/24/2019 12:25 PM EDT Severe manic bipolar I disorder with psychotic features TSH Routine 02/27/2019 3:45 PM EDT Severe manic bipolar I disorder with psychotic features from Last 3 Months or Most Recently Relevant to Health Maintenance Results * Basic metabolic panel (09/25/2024 1:44 PM EST) SODIUM 135 133 - 146 mmol/L [facility] CHLORIDE 99 96 - 108 mmol/L [facility] POTASSIUM 3.8 3.3 - 5.1 mmol/L [facility] CO2 27 21 - 35 mmol/L [facility] BUN 8 6 - 19 mg/dL [facility] CREATININE 0.70 0.5 - 1.5 mg/dL [facility] GLUCOSE 91 70 - 99 mg/dL [facility] CALCIUM 9.5 8.4 - 10.3 mg/dL [facility] EGFR 119 >59 mL/min/1.7 3m2 [facility] Comment:Estimated glomerular filtration rate calculated using the CKD-EPI refit equation. ANION GAP 13 10 - 20 mmol/L [facility] Blood 09/25/2024 1:44 PM EST 09/25/2024 1:47 PM EST us Mateusz Fried MD LAB BLOOD ORDERABLES Final Resul t Performing Organization Address City/[facility]/ZIP Co de Phone Number [address] [address] * (ABNORMAL) Lipid panel (04/24/2019 12:25 PM EDT) HDL 54 mg/dL [facility] Comment: Interpretation <40 mg/dL: Low HDL cholesterol (major risk factor for CHD) Greater than or equal to 60 mg/dL: High HDL cholesterol ( negative risk factor for CHD) HDL - cholesterol is affected by a number of factors, e.g. smoking, excerise, hormones, sex and age. CHOLESTEROL 148 0 - 240 mg/dL [facility] TRIGLYCERIDES 137 30 - 160 mg/dL [facility] LDL 67 50 - 129 mg/dL [facility] Comment: LDL levels in terms of risk for coronary heart disease: <100 mg/dL: Optimal 100-129 mg/dL: Near or above optimal 130-159 mg/dL: Borderline high 160-189 mg/dL: High >190 mg/dL: Very High CARDIAC RISK RATIO 2.7(L) 3.4 - 5.0 [facility] Blood 04/24/2019 12:2 5 PM EDT 04/24/2019 12:30 PM EDT us Jad Ibarra MD LAB BLOOD ORDERABLES Final Result [address] [address] * TSH (02/27/2019 3:45 PM EDT) TSH 1.13 0.27 - 4.20 uIU/mL [facility] Blood 02/27/2019 3:45 PM EDT 02/27/2019 3:47 PM EDT us Jad Ibarra MD LAB BLOOD ORDERABLES Final Result [facility] [address] [place] [address] from Last 3 Months or Most Recently Relevant to Health Maintenance Insurance MEDICARE REPLACEMENT MEDICARE REPLACEMENT CARE MEDICARE REPLACEMENT CARE [place] [id number] CARE MEDICARE REPLACEMENT Advance Directives For more information, please contact: [phone] (9AM - 5PM [facility], Monday-Monday) * Full Code (Presumed) (Latest Code Status on File) Date Activated Date Inactivated Comments 08/06/2018 10:56 PM 08/15/2018 1:11 PM Care Teams Time Broker Relationship Specialty Start Date End Date Vipul Duran MD [facility] [place] [address] PCP - General Internal Medicine 02/07/20 Additional Source Comments The information contained in this document represents components of the legal health record. It is not the complete legal health record.[facility]
--- OUTSIDE RECORDS SUMMARY | 2025-06-25 09:45 | XMS_ITS | Encounter Summary ---
Author Organization [facility] Address [address] [place] [address] [place] [address] Phone Care Team Providers Care Processing Talc And Borate Supervisor Name Role Phone Yajaira Landrum MD, MPH Primary Care Provid er Pcp, Unknown Primary Care Provider Vipul Sandoval MD Primary Care Provider [phone] Encounter Details Date Type Department Care Team (Late st Contact Info) Description 02/27/2019 Transcribe Orders [facility] [address] [place] [address] Jad Ibarra MD [address] [place] [address] [email or web address] Severe manic bipolar I disorder with psychotic features (Primary Dx) Social History Tobacco Use Types [...] documented as of this encounter Results * Hemoglobin A1c (02/27/2019 3:45 PM EDT) HEMOGLOBIN A1C 5.2 4.3 - 5.8 % [facility] Blood 02/27/2019 3:45 PM EDT 02/27/2019 3:47 PM EDT us Jad Ibarra MD LAB BLOOD ORDERABLES Final Result Performing Organization Address [facility] Co de Phone Number [address] [address] * Ammonia (02/27/2019 3:45 PM EDT) AMMONIA 52 28 - 80 umol/L [facility] Blood 02/27/2019 3:45 PM EDT 02/27/2019 3:47 PM EDT us Jad Ibarra MD LAB BLOOD ORDERABLES Final Result Performing Organization Address [facility] Phone Number [address] [address] * Valproic acid (02/27/2019 3:45 PM EDT) VALPROIC ACID 51.0 50.0 - 100.0 ug/mL [facility] Blood 02/27/2019 3:45 PM EDT 02/27/2019 3:47 PM EDT us Jad Ibarra MD LAB BLOOD ORDERABLES Final Result Performing Organization Address [facility] Co de Phone Number [address] [address] * (ABNORMAL) Prolactin (02/27/2019 3:45 PM EDT) PROLACTIN 3.5(L) 4.0 - 15.2 ng/mL [facility] Blood 02/27/2019 3:45 PM EDT 02/27/2019 3:47 PM EDT us Jad Ibarra MD LAB BLOOD ORDERABLES Final Result Performing Organization Address City/[facility]/ZIP Co de Phone Number [address] [place] [address] * TSH (02/27/2019 3:45 PM EDT) TSH 1.13 0.27 - 4.20 uIU/mL [facility] Blood 02/27/2019 3:45 PM EDT 02/27/2019 3:47 PM EDT us Jad Ibarra MD LAB BLOOD ORDERABLES Final Result [facility] [address] [place] [address] * (ABNORMAL) CBC and differential (02/27/2019 3:45 PM EDT) WBC 3.64 3.40 - 11.20 K/uL [facility] RBC 4.87 4.50 - 5.50 M/uL [facility] HGB 14.4 13.0 - 17.0 g/dL [facility] HCT 42.9 40.0 - 51.0 % [facility] PLT 172 130 - 400 K/uL [facility] MCV 88.1 79.0 - 98.0 fL [facility] MCH 29.6 27.0 - 34.8 pg [facility] MCHC 33.6 31.5 - 36.0 g/dL [facility] RDW 12.7 10.8 - 14.6 % [facility] MPV 10.0 9.4 - 12.4 fl [facility] NRBC 0.00 0.00 /100 WBCs [facility] ABSOLUTE NRBC 0.00 0.00 K/uL [facility] DIFF METHOD Auto [facility] NEUTS 38.5(L) 45.30 - 77.70 % [facility] LYMPHS 45.3(H) 12.30 - 39.70 % [facility] MONOS 9.6 4.10 - 12.80 % [facility] EOS 5.5 0 - 7.2 % [facility] BASOS 0.8 0 - 2.80 % [facility] Granulocytes, immature (%) 0.3 0.0 - 0.9 % [facility] ABSOLUTE NEUTS 1.40 1.40 - 7.70 K/uL [facility] ABSOLUTE LYMPHS 1.65 0.60 - 3.20 K/uL [facility] ABSOLUTE MONOS 0.35 0.11 - 0.59 K/uL [facility] ABSOLUTE EOS 0.20 0.01 - 0.50 K/uL [facility] ABSOLUTE BASOS 0.03 0.00 - 0.08 K/uL [facility] Granulocytes, immature 0.01 0.00 - 0.05 K/uL [facility] Blood 02/27/2019 3:45 PM EDT 02/27/2019 3:47 PM EDT us Jad Ibarra MD LAB BLOOD ORDERABLES Final Result Performing Organization Address City/State/[facility] Co de Phone Number [address] [address] * (ABNORMAL) Lipid panel (02/27/2019 3:45 PM EDT) HDL 51 mg/dL [facility] Comment: Interpretation <40 mg/dL: Low HDL cholesterol (major risk factor for CHD) Greater than or equal to 60 mg/dL: High HDL cholesterol ( negative risk factor for CHD) HDL - cholesterol is affected by a number of factors, e.g. smoking, excerise, hormones, sex and age. CHOLESTEROL 183 0 - 240 mg/dL [facility] TRIGLYCERIDES 230(H) 30 - 160 mg/dL [facility] LDL 86 50 - 129 mg/dL [facility] Comment: LDL levels in terms of risk for coronary heart disease: <100 mg/dL: Optimal 100-129 mg/dL: Near or above optimal 130-159 mg/dL: Borderline high 160-189 mg/dL: High >190 mg/dL: Very High CARDIAC RISK RATIO 3.6 3.4 - 5.0 C [facility] Blood 02/27/2019 3:45 PM EDT 02/27/2019 3:47 PM EDT Jad Ibarra MD LAB BLOOD ORDERABLES Final Result [address] [address] * (ABNORMAL) Comprehensive metabolic panel (02/27/2019 3:45 PM EDT) SODIUM 142 133 - 146 mmol/L [facility] POTASSIUM 4.4 3.3 - 5.1 mmol/L [facility] CHLORIDE 102 96 - 108 mmol/L [facility] CO2 29 21 - 35 mmol/L [facility] BUN 8 6 - 19 mg/dL [facility] CREATININE 0.60 0.5 - 1.5 mg/dL [facility] GLUCOSE 93 70 - 99 mg/dL [facility] ALBUMIN 4.7 3.9 - 4.8 g/dL [facility] TOTAL PROTEIN 6.2(L) 6.5 - 8.0 g/dL [facility] CALCIUM 9.8 8.4 - 10.3 mg/dL [facility] ALKALINE PHOSPHATASE 52 39 - 117 U/L [facility] TOTAL BILIRUBIN 0.6 0.0 - 1.2 mg/dL [facility] AST 59(H) 0 - 37 U/L [facility] ALT 42(H) 0 - 40 U/L [facility] GLOBULIN 1.5 1 - 4.8 g/dL [facility] EGFR >120 >59 mL/min/1.7 3m2 [facility] Comment:If patient is black, multiply result by 1.159. Estimated glomerular filtration rate calculated using the CKD-EPI equation. ANION GAP 15 10 - 20 mmol/L [facility] Blood 02/27/2019 3:45 PM EDT 02/27/2019 3:47 PM EDT us Jad Ibarra MD LAB BLOOD ORDERABLES Final Result Performing Organization Address City/[facility]/ZIP Co de Phone Number [address] [address] documented in this encounter Visit Diagnoses Diagnosis Severe manic bipolar I disorder with psychotic features- Primary Bipolar I disorder, most recent episode (or current) manic, severe, specified as with psychotic behavior documented in this encounter Care Teams Processing Talc And Borate Supervisor Relationship Specialty Start Date End Date Yajaira Landrum MD, MPH [address] [facility] [address] [place] [address] [email or web address] PCP - General Family Medicine 08/04/18 02/04/20 Pcp, Unknown PCP - General 02/05/20 02/06/20 Vipul Duran MD [facility] [place] [address] PCP - General Internal Medicine 02/07/20 documented as of this encounter Additional Source Comments The information contained in this document represents components of the legal health record. It is not the complete legal health record.[facility]
== END 2025-06-25 10:33 | disposition home or self-care (01) ==
LOC: HO.HMCC 09:16
PROVIDERS: PCP Internal Medicine; Visit Provider Internal Medicine
DX: R45.1 Restlessness and agitation (principal); F31.77 Bipolar disorder, in partial remission, most recent episode mixed; F10.20 Alcohol dependence, uncomplicated; T50.901A Poisoning by unspecified drugs, medicaments and biological substances, accidental (unintentional), initial encounter; R73.01 Impaired fasting glucose

== ENCOUNTER 2025-06-25 09:15 | Outpatient (REF) | payer OTHER, SELFPAY ==
[2025-06-25 13:50] LABS: MANUAL DIFF FLAG NO
[2025-06-25 14:01] LABS: Hematocrit 45.1 % (42.0-52.0); Hemoglobin 15.3 g/dl (14.0-18.0); Imm Gran Abs Auto 0.03 X10*3/uL (0.00-0.03); Imm Gran Pct Auto 0.5 % (0.0-0.4); Lymphocytes Absolute Auto 1.3 X10*3/uL (1.2-4.9); Mean Corpuscular HGB Conc 33.9 g/dl (31.0-36.0); Mean Corpuscular Hemoglobin 31.9 pg (27.0-33.0); Mean Corpuscular Volume 94.2 fL (80.0-98.0); NRBC Abs Auto 0.000 X10*3/uL (0.0-0.012); NRBC Pct Auto 0.0 /100WBC (0.0-0.2); Platelet Count 331 X10*3/uL (160-400); Red Blood Count 4.79 X10*6/uL (4.60-5.80); White Blood Count 5.8 X10*3/uL (4.8-10.8)
[2025-06-25 14:37] LABS: Alanine Aminotransferase 24 U/L (0-40); Albumin Level 5.0 g/dL (3.5-5.0); Alkaline Phosphatase 63 U/L (39-117); Anion Gap 13 (12-20); Aspartate Amino Transferase 35 U/L (5-37); Blood Urea Nitrogen 13 mg/dL (9-16); Calcium 9.2 mg/dL (8.4-10.2); Carbon Dioxide 25 mmol/L (22-29); Chloride 102 mmol/L (96-108); Estimated Glomerular Filt Rate > 60; Potassium 4.3 mmol/L (3.3-5.1); Sodium 136 mmol/L (135-145); Total Protein 6.9 g/dL (6.5-8.0)
[2025-06-25 14:48] LABS: Lithium 0.51 mmol/L (0.60-1.20)
== END 2025-06-25 09:16 | disposition home or self-care (01) ==
LOC: HO.HMGCLDS 09:15
PROVIDERS: PCP Internal Medicine; Visit Provider Internal Medicine
DX: F31.77 Bipolar disorder, in partial remission, most recent episode mixed (principal); F10.20 Alcohol dependence, uncomplicated; R73.01 Impaired fasting glucose; T50.901A Poisoning by unspecified drugs, medicaments and biological substances, accidental (unintentional), initial encounter; R45.1 Restlessness and agitation; Z79.899 Other long term (current) drug therapy
CPT/HCPCS: 36415; 80053; 80178; 84443; 85025; 99212

== ENCOUNTER 2025-10-17 11:16 | Outpatient (AMB) | payer OTHER, SELFPAY ==
[2025-10-17 11:29] VITALS: BP 138/82; BMI 24.6
--- NOTE | 2025-10-17 11:29 | A.OFFPC_ITS ---
Vital Signs 10/17/25 11:29 Height 5 ft 8 in Weight 162 lb BMI 24.6 BP 138/82 Blood Pressure Location Lt brachial Position Sitting Intake Visit Reasons: Annual PE Allergies penicillin V Allergy (Unknown, Verified 06/25/25 09:23) anaphylaxis Sulfa (Sulfonamide Antibiotics) Allergy (Unknown, Verified 06/25/25 09:23) fixed drug eruption asprin Adverse Reaction (Intermediate, Uncoded 06/25/25 09:23) Unknown Medication List - Last Reconciled 10/17/25 by Vipul Duran MD acetaminophen (Tylenol) 325 mg PO QID PRN bismuth subsalicylate (Pepto-Bismol) 2 tabs PO Q1H PRN clonazepam 0.5 mg PO BID PRN [famotidine 10 mg PO DAILY] fluticasone propionate 50 mcg/actuation (Flonase Allergy Relief) 1 spray intranasal DAILY 30 days lactase (Lactaid) 3,000 units PO QID PRN lithium carbonate 300 mg PO BID [peppermint oil 200 mg PO DIRECTED] trazodone 50 mg PO BEDTIME venlafaxine 37.5 mg PO DAILY venlafaxine ER 75 mg PO DAILY Tobacco use date assessed: 06/25/25 Dental Screening Dental Screen Date: 12/11/24 HPI HPI Comments History of Present Illness Details History of Present Illness The patient is a 40 year old male presenting for PE Bipolar Disorder: - The patient reports his bipolar sympto ms are relatively controlled. - A recent breakup before Thanksgi h as been a significant stressor and trigger. - He is under the care of a psychiatrist , Dr. Real, and his medication dosage has been stable. - His therapist left the practice, and morris boles is on a high-needs waiting list for a replacement, having previously waited 18 months. - He currently feels a lack of motivatio n. Substance Use: - The patient reports he resumed drinkin g alcohol following his recent breakup. - He also uses cannabis, which he states causes more acid reflux than alcohol, especially when used together. Decreased Appetite and Weight Loss: - He reports having a very low appetite and finds the thought of eating to be overwhelming and nauseating. - He lost 3 pounds since May and has been losing weight since early this year. Social History - Substance Use: Reports a relapse in al cohol consumption following a recent stressful breakup. - He also reports using cannabis, which he states worsens his acid reflux. - Exercise: Recently obtained a gym memb ership and has used the elliptical. - Diet and Nutrition: Reports very littl e appetite and finds the thought of eating overwhelming. - He has experienced a 3-pound weight lo ss since May. - His BMI is 24.6, which is in the karl l range. - Mental Health: He is currently without a therapist as his previous one left the practice, and he is on a waiting list. - A recent breakup has been a significan t stressor. Health Maintenance - Labs completed in May were reviewed and showed normal cholesterol, thyroid function, and kidney function. - Prostate cancer screening with PSA was discussed at the patient's request due to family history; however, it was advised against at this time due to his young age and lack of symptoms. - An influenza vaccine was offered for t he current season, but the patient declined. - His BMI is normal at 24.6. [facility] Medical History Deviated septum Nausea IBS (irritable bowel syndrome) Surgical History History of nasal surgery History of tonsillectomy Family History Paternal Grandfather Prostate cancer Paternal Grandmother Colon cancer Other Mental health disorder Substance use disorder Social History Household Members: None Housing: Apartment Alcohol intake: current Alcohol intake frequency: holidays/special occasions only Patient Tobacco Use Status: Former Tobacco user (20 years ago ) Tobacco use type: Cigarette e-Cigarette/Vaping Use: Never Used Substance Use Type: Marijuana service: No Current occupational status: disabled Cognitive needs: No Hearing needs: No Vision needs: No Questionnaire Thrive Questionnaire Date Thrive assessed: 12/11/24 I am a: Patient What is your living situation today?: I have a steady place to live Within the past 12 months, did the food you bought not last and you didn't have the money to get more?: Never true Within the past 12 months, did you worry whether your food would run out before you got money to buy more?: Never true Do you have trouble paying for medicines?: No Do you have trouble getting transportation to medical appointments?: No Do you have trouble paying your heating and electricity bill?: I choose not to answer this question Do you have trouble taking care of your child, family member or friend?: I choose not to answer this question Do you have trouble with day-to-day activities such as bathing, preparing meals, shopping, managing finances, etc.?: I choose not to answer this question Are you currently unemployed and looking for a job?: I choose not to answer this question Are you interested in more education?: I choose not to answer this question Currently or been in a relationship where the following occur: I choose not to answer THRIVE Score: 0 CRIS-7 AMB Questionnaire CRIS-7 Date CRIS - 7 assessed: 12/11/24 Source: Developed by Drs. Reggie Pavon, Edita Casanova, Garcia De Leon and colleagues, with an educational matt from [employer]. Review of Systems Narrative Review of Systems - General: No fever no chills - Neurological: No headaches no dizziness - Ear nose throat: No sore throat no hearing difficulty no ear pain - Cardiovascular: No syncope, no chest pain, no palpitations - Gastrointestinal: No nausea vomiting or diarrhea - Endocrine: No polyuria polydipsia no heat intolerance - Genitourinary: No dysuria - Skin: No new complaints Physical exam (Primary Care) Vital Signs: Last Vital Signs BP 138/82 10/17/25 11:29 BMI result Body Mass Index 24.6 Tobacco/Smoking Status: Tobacco use Status Tobacco use date assessed 06/25/25 10/17/25 11:31 Patient Tobacco Use Status Former Tobacco user (20 10/17/25 11:31 years ago ) Tobacco use type Cigarette 10/17/25 11:31 e-Cigarette/Vaping Use Never Used 10/17/25 11:31 Thrive Assessment: Date of Thrive Assessment Date Thrive assessed 12/11/24 10/17/25 11:31 Currently or been in a relationship where the following occur: I choose not to answer Narrative Physical Exam General: Cooperative, healthy appearing, comfortable, no acute distress Orientation: Patient oriented x3 Head: Normal to inspection Ears: Within normal limit visually Nose: Normal external nose present Face and sinus: Normal facial exam Eyes: Appearance normal, extraocular movement intact pupils reactive Neck: Normal visual inspection and supple Respiratory: Normal respiratory effort and able to speak in complete sentences. Clear to auscultation, no stridor Cardiovascular: S1 and S2 RRR GI: Normal to inspection. Soft to palpation and nontender Skin: Turgor normal, no acute findings Neuro: Patient oriented x3, motor sensory intact, balance intact, tandem pass Extremities: Normal to inspection, patient reported previous Rt knee pain after exercise but resolved without intervention . Coding Level of Care Code Est Pt Prev Care 40-64y(42423) Diagnoses Adult general medical examination Z00.00 Assessment & Plan Assessment & Plan (1) Adult general medical examination: Code(s): Z00.00 - Encounter for general adult medical examination without abnormal findings Category: Medical Plan Patient Instructions - Be careful when exercising. Using a stationary bicycle might be a better option for cardio exercise. - There is no need for prostate cancer screening (PSA test) at this time because you are young and do not have any urinary symptoms. - If you change your mind about the flu vaccine, you can get it at a pharmacy. - continue meds thru Psych - f/u 1 year for PE
--- OUTSIDE RECORDS SUMMARY | 2025-10-17 13:16 | XMS_ITS | Clinical Summary ---
Author [place] [facility] [place] [address] [place] [address] Phone Care Team Providers Care Communications Equipment Operator Name Role Phone Physician, No Pcp Primary [...] on file Sexual Orientation Not on file Last Filed Vital Signs Vital Sign Reading [...] Years) (1 of 2 - PCV) 2002 HPV Vaccines (1 - 3-dose SCD M series) 2010 Depression Screening 10/30/2024 Cholesterol Screening (Lipid Panel) 11/13/2024 04/24/2019 HIV Screening 11/13/2024 Hepatitis C Screening 11/13/2024 Medicare Annual Wellness Visit 11/13/2024 Social Influencers of Health Screening 11/13/2024 COVID-19 Vaccine ( - 2024-2 6 season) 2025 Influenza Vaccine (#1) 2025 RSV Immunization Adult Patie nts (1 - 1-dose 75+ series) 2058 HIB Vaccines Aged Out No longer eligi [...] to complete this topic Insurance [address] [place] [address] [employer] MEDICARE Member Subscriber Plan / Payer (Ef fective 2021-Present) Name:Edwardo Ram III Relation to Subscriber:Self Name:Edwardo Ram III Payer ID:[id number] Group ID:[id number] Type:Not on file Address: [facility] [address] [id number] Care Teams Communications Equipment Operator Relationship Specialty Start Date End Date Physician, No Pcp PCP - General 11/13/24
--- OUTSIDE RECORDS SUMMARY | 2025-10-17 13:17 | XMS_ITS | Encounter Summary ---
Author Organization [facility] Address [address] [place] [address] [address] [place] [address] Phone Care Team Providers Care Material Handler 1St Shift Name Role Phone Yajaira Landrum MD, MPH Primary Care Provid er Pcp, Unknown Primary Care Provider Vipul Sandoval MD Primary Care Provider [phone] Encounter Details Date Type Department Care Team (Latest Contact Info) Description 08/15/2018 Transcribe Orders [facility] Phleb Main [address] [place] [address] Bacilio Pugh MD [address] [place] [address] Diagnosis unknown (Primary Dx) Social History Tobacco [...] EDT) SODIUM 142 133 - 146 mmol/L [facility] POTASSIUM 3.9 3.3 - 5.1 mmol/L [facility] CHLORIDE 101 96 - 108 mmol/L [facility] CO2 27 21 - 35 mmol/L [facility] BUN 14 6 - 19 mg/dL [facility] CREATININE 0.70 0.5 - 1.5 mg/dL [facility] GLUCOSE 78 70 - 99 mg/dL [facility] ALBUMIN 4.8 3.9 - 4.8 g/dL [facility] TOTAL PROTEIN 6.7 6.5 - 8.0 g/dL [facility] CALCIUM 9.4 8.4 - 10.3 mg/dL [facility] ALKALINE PHOSPHATASE 48 39 - 117 U/L [facility] TOTAL BILIRUBIN 0.9 0.0 - 1.2 mg/dL [facility] AST 35 0 - 37 U/L [facility] ALT 67(H) 0 - 40 U/L [facility] GLOBULIN 1.9 1 - 4.8 g/dL [facility] EGFR >120 >59 mL/min/1.7 3m2 [facility] Comment:If patient is black, multiply result by 1.159. Estimated glomerular filtration rate calculated using the CKD-EPI equation. ANION GAP 18 10 - 20 mmol/L [facility] Blood 08/15/2018 4:20 PM EDT 08/15/2018 4:22 PM EDT us Bacilio Pugh MD LAB BLOOD BKR ORDERABLES mUu lopez Result [facility] [address] [place] [address] documented in this encounter Visit Diagnoses Diagnosis Diagnosis unknown- Primary documented in this encounter Care Teams Material Handler 1St Shift Relationship Specialty Start Date End Date Yajaira Landrum MD, MPH [address] [address] [email or web address] PCP - General Family Medicine 08/04/18 02/04/20 Pcp, Unknown PCP - General 02/05/20 02/06/20 Vipul Duran MD [facility] [place] [address] PCP - General Internal Medicine 02/07/20 documented as of this encounter Additional Source Comments The information contained in this document represents components of the legal health record. It is not the complete legal health record.[facility]
--- OUTSIDE RECORDS SUMMARY | 2025-10-17 13:17 | XMS_ITS | Clinical Summary ---
Author Organization [facility] Address [address] [place] [address] Phone Care Team Providers Care Landing Signal Officer Name Role Phone Vipul Duran MD Primary Care Provider [phone] Allergies Active Allergy Reactions Criticality Noted Date [...] by mouth nightly at bedtime as needed. 4 Active venlafaxine (EFFEXOR-XR) 75 MG 24 hr [...] 02/28/2020 02/27/2019 LIPID PANEL 04/24/2024 04/24/2019, 02/27/2019 INFLUENZA VACCINE (#1) 2025 0, 09/18/2019, 07/27/2018 COVID-19 VACCINE ( season) 2025 01/31/2021, 01/10/2021 CREATININE LEVEL 09/25/2025 09/25/2024, 05/2020, [...] Date/Time Associated Diagnosis Comments BASIC METABOLIC PANEL (BMP) STAT 09/25/2024 1:44 PM EST LIPID PANEL Routine 04/24/2019 12:25 PM EDT Severe manic bipolar I disorder with psychotic features THYROID STIMULATING HORMONE (TSH) Routine 02/27/2019 3:45 PM EDT Severe manic bipolar I disorder with psychotic features from Last 3 Months or Most Recently Relevant to Health Maintenance Results * Basic metabolic panel (09/25/2024 1:44 PM EST) SODIUM 135 133 - 146 mmol/L [facility] CHLORIDE 99 96 - 108 mmol/L [facility] POTASSIUM 3.8 3.3 - 5.1 mmol/L [facility] CO2 27 21 - 35 mmol/L [facility] BUN 8 6 - 19 mg/dL [facility] CREATININE 0.70 0.5 - 1.5 mg/dL [facility] GLUCOSE 91 70 - 99 mg/dL [facility] CALCIUM 9.5 8.4 - 10.3 mg/dL [facility] EGFR 119 >59 mL/min/1.7 3m2 [facility] Comment:Estimated glomerular filtration rate calculated using the CKD-EPI refit equation. ANION GAP 13 10 - 20 mmol/L [facility] Blood 09/25/2024 1:44 PM EST 09/25/2024 1:47 PM EST us Mateusz Fried MD LAB BLOOD BKR ORDERABLES Final R esult Performing Organization Address City/[facility] Co de Phone Number [address] [address] * (ABNORMAL) Lipid panel (04/24/2019 12:25 PM EDT) HDL 54 mg/dL [facility] Comment: Interpretation <40 mg/dL: Low HDL cholesterol (major risk factor for CHD) Greater than or equal to 60 mg/dL: High HDL cholesterol ( negative risk factor for CHD) HDL - cholesterol is affected by a number of factors, e.g. smoking, excerise, hormones, sex and age. CHOLESTEROL 148 0 - 240 mg/dL [facility] TRIGLYCERIDES 137 30 - 160 mg/dL [facility] LDL 67 50 - 129 mg/dL [facility] Comment: LDL levels in terms of risk for coronary heart disease: <100 mg/dL: Optimal 100-129 mg/dL: Near or above optimal 130-159 mg/dL: Borderline high 160-189 mg/dL: High >190 mg/dL: Very High CARDIAC RISK RATIO 2.7(L) 3.4 - 5.0 [facility] [place] [facility] Blood 04/24/2019 12:2 5 PM EDT 04/24/2019 12:30 PM EDT us Jad Ibarra MD LAB BLOOD BKR ORDERABLES Fi nal Result [address] [place] [place] [address] * TSH (02/27/2019 3:45 PM EDT) TSH 1.13 0.27 - 4.20 uIU/mL [facility] Blood 02/27/2019 3:45 PM EDT 02/27/2019 3:47 PM EDT us Jad Ibarra MD LAB BLOOD BKR ORDERABLES Fi nal Result [facility] [address] [place] [address] from Last 3 Months or Most Recently Relevant to Health Maintenance Insurance [facility] CARE MEDICARE REPLACEMENT [address] [id number] [facility] MEDICARE REPLACEMENT [address] [place] [id number] [place] [address] CARE MEDICARE REPLACEMENT CARE MEDICARE REPLACEMENT CARE MEDICARE REPLACEMENT CARE MEDICARE REPLACEMENT [id number] [place] [id number] Advance Directives For more information, please contact: [phone] (9AM - 5PM [facility], Monday-Monday) * Full Code (Presumed) (Latest Code Status on File) Date Activated Date Inactivated Comments 08/06/2018 10:56 PM 08/15/2018 1:11 PM Care Teams Landing Signal Officer Relationship Specialty Start Date End Date Vipul Duran MD [address] [facility] [place] [address] PCP - General Internal Medicine 02/07/20 Additional Source Comments The information contained in this document represents components of the legal health record. It is not the complete legal health record.[facility]
--- OUTSIDE RECORDS SUMMARY | 2025-10-17 13:17 | XMS_ITS | Encounter Summary ---
Author Organization [facility] Address [address] [place] [address] [place] [phone] Phone Care Team Providers Care Maritime Guard Name Role Phone Yajaira Landrum MD, MPH Primary Care Provid er Pcp, Unknown Primary Care Provider Vipul Sandoval MD Primary Care Provider [phone] Encounter Details Date Type Department Care Team (Late st Contact Info) Description 02/18/2019 Transcribe Orders Virtual Department [address] [place] [address] Jad Ibarra MD [address] [place] [address] [email or web address] High risk medication use (Primary Dx) [...] BPM [facility] Atrial Rate 51 BPM [facility] IL Interval 154 ms [facility] QRS Duration 92 ms [facility] QT Interval 406 ms [facility] QTC Interval 374 ms [facility] P [place] 66 degrees [facility] R Wave [place] 70 degrees [facility] T Wave [place] 54 degrees [facility] 05/09/2019 3:37 PM EDT [...] use documented in this encounter Care Teams Maritime Guard Relationship Specialty Start Date End Date Yajaira Landrum MD, MPH [address] [place] [phone] [email or web address] PCP - General Family Medicine 08/04/18 02/04/20 Pcp, Unknown PCP - General 02/05/20 02/06/20 Vipul Duran MD [address] [place] [address] [place] [address] PCP - General Internal Medicine 02/07/20 documented as of this encounter Additional Source Comments The information contained in this document represents components of the legal health record. It is not the complete legal health record.[facility]
--- OUTSIDE RECORDS SUMMARY | 2025-10-17 13:17 | XMS_ITS | Encounter Summary ---
Author Organization [facility] Address [address] [place] [address] [place] [address] Phone Care Team Providers Care Potato Pancake Frier Name Role Phone Yajaira Landrum MD, MPH Primary Care Provid er Pcp, Unknown Primary Care Provider Vipul Sandoval MD Primary Care Provider [phone] Encounter Details Date Type Department Care Team (Late st Contact Info) Description 02/27/2019 Transcribe Orders [facility] Phleb [address] [place] [address] Jad Ibarra MD [address] [place] [address] [email or web address] Severe manic bipolar I disorder [...] HEMOGLOBIN A1C 5.2 4.3 - 5.8 % [facility] Blood 02/27/2019 3:45 PM EDT 02/27/2019 3:47 PM EDT us Jad Ibarra MD LAB BLOOD BKR ORDERABLES Fi nal Result Performing Organization Address City/[facility] Co de Phone Number [address] [address] * Ammonia (02/27/2019 3:45 PM EDT) AMMONIA 52 28 - 80 umol/L [facility] Blood 02/27/2019 3:45 PM EDT 02/27/2019 3:47 PM EDT us Jad Ibarra MD LAB BLOOD BKR ORDERABLES Fi nal Result Performing Organization Address [facility] de Phone Number [address] [address] * Valproic acid (02/27/2019 3:45 PM EDT) VALPROIC ACID 51.0 50.0 - 100.0 ug/mL [facility] Blood 02/27/2019 3:45 PM EDT 02/27/2019 3:47 PM EDT us Jad Ibarra MD LAB BLOOD BKR ORDERABLES Fi nal Result Performing Organization Address [facility] Co de Phone Number [address] [address] * (ABNORMAL) Prolactin (02/27/2019 3:45 PM EDT) PROLACTIN 3.5(L) 4.0 - 15.2 ng/mL [facility] Blood 02/27/2019 3:45 PM EDT 02/27/2019 3:47 PM EDT us Jad Ibarra MD LAB BLOOD BKR ORDERABLES Fi nal Result Performing Organization Address City/[facility] Co de Phone Number [address] [address] * TSH (02/27/2019 3:45 PM EDT) TSH 1.13 0.27 - 4.20 uIU/mL [facility] Blood 02/27/2019 3:45 PM EDT 02/27/2019 3:47 PM EDT us Jad Ibarra MD LAB BLOOD BKR ORDERABLES Fi nal Result Performing Organization Address City/[facility]/ZIP Co de Phone Number [address] [address] * (ABNORMAL) CBC and differential (02/27/2019 3:45 PM EDT) WBC 3.64 3.40 - 11.20 K/uL [facility] RBC 4.87 4.50 - 5.50 M/uL [facility] HGB 14.4 13.0 - 17.0 g/dL [facility] HCT 42.9 40.0 - 51.0 % [facility] PLT 172 130 - 400 K/uL [facility] MCV 88.1 79.0 - 98.0 [facility] MCH 29.6 27.0 - 34.8 pg [facility] MCHC 33.6 31.5 - 36.0 g/dL [facility] RDW 12.7 10.8 - 14.6 % [facility] MPV 10.0 9.4 - 12.4 [facility] NRBC 0.00 0.00 /100 WBCs [facility] ABSOLUTE NRBC 0.00 0.00 K/uL [facility] DIFF METHOD Auto [facility] NEUTS 38.5(L) 45.30 - 77.70 % [facility] LYMPHS 45.3(H) 12.30 - 39.70 % [facility] MONOS 9.6 4.10 - 12.80 % [facility] EOS 5.5 0 - 7.2 % [facility] BASOS 0.8 0 - 2.80 % [facility] Granulocytes, immature (%) 0.3 0.0 - 0.9 % [facility] ABSOLUTE NEUTS 1.40 1.40 - 7.70 K/uL [facility] ABSOLUTE LYMPHS 1.65 0.60 - 3.20 K/uL [facility] ABSOLUTE MONOS 0.35 0.11 - 0.59 K/uL [facility] ABSOLUTE EOS 0.20 0.01 - 0.50 K/uL [facility] ABSOLUTE BASOS 0.03 0.00 - 0.08 K/uL [facility] Granulocytes, immature 0.01 0.00 - 0.05 K/uL [facility] Blood 02/27/2019 3:45 PM EDT 02/27/2019 3:47 PM EDT Jad Ibarra MD LAB BLOOD BKR ORDERABLES Fi nal Result [address] [address] * (ABNORMAL) Lipid panel (02/27/2019 3:45 PM EDT) HDL 51 mg/dL [facility] Comment: Interpretation <40 mg/dL: Low HDL cholesterol (major risk factor for CHD) Greater than or equal to 60 mg/dL: High HDL cholesterol ( negative risk factor for CHD) HDL - cholesterol is affected by a number of factors, e.g. smoking, excerise, hormones, sex and age. CHOLESTEROL 183 0 - 240 mg/dL [facility] TRIGLYCERIDES 230(H) 30 - 160 mg/dL [facility] LDL 86 50 - 129 mg/dL [facility] Comment: LDL levels in terms of risk for coronary heart disease: <100 mg/dL: Optimal 100-129 mg/dL: Near or above optimal 130-159 mg/dL: Borderline high 160-189 mg/dL: High >190 mg/dL: Very High CARDIAC RISK RATIO 3.6 3.4 - 5.0 C [facility] Blood 02/27/2019 3:45 PM EDT 02/27/2019 3:47 PM EDT us Jad Ibarra MD LAB BLOOD BKR ORDERABLES Fi nal Result Performing Organization Address City/[facility]/ZIP Co de Phone Number [address] [address] * (ABNORMAL) Comprehensive metabolic panel (02/27/2019 3:45 PM EDT) SODIUM 142 133 - 146 mmol/L [facility] POTASSIUM 4.4 3.3 - 5.1 mmol/L [facility] CHLORIDE 102 96 - 108 mmol/L [facility] CO2 29 21 - 35 mmol/L [facility] BUN 8 6 - 19 mg/dL [facility] CREATININE 0.60 0.5 - 1.5 mg/dL [facility] GLUCOSE 93 70 - 99 mg/dL [facility] ALBUMIN 4.7 3.9 - 4.8 g/dL [facility] TOTAL PROTEIN 6.2(L) 6.5 - 8.0 g/dL [facility] CALCIUM 9.8 8.4 - 10.3 mg/dL [facility] ALKALINE PHOSPHATASE 52 39 - 117 U/L [facility] TOTAL BILIRUBIN 0.6 0.0 - 1.2 mg/dL [facility] AST 59(H) 0 - 37 U/L [facility] ALT 42(H) 0 - 40 U/L [facility] GLOBULIN 1.5 1 - 4.8 g/dL [facility] EGFR >120 >59 mL/min/1.7 3m2 [facility] Comment:If patient is black, multiply result by 1.159. Estimated glomerular filtration rate calculated using the CKD-EPI equation. ANION GAP 15 10 - 20 mmol/L [facility] Blood 02/27/2019 3:45 PM EDT 02/27/2019 3:47 PM EDT us Jad Ibarra MD LAB BLOOD BKR ORDERABLES Fi nal Result Performing Organization Address City/[facility]/ZIP Co de Phone Number [address] [address] documented in this encounter Visit Diagnoses Diagnosis Severe manic bipolar I disorder with psychotic features- Primary Bipolar I disorder, most recent episode (or current) manic, severe, specified as with psychotic behavior documented in this encounter Care Teams Potato Pancake Frier Relationship Specialty Start Date End Date Yajaira Landrum MD, MPH [address] [place] [phone] [email or web address] PCP - General Family Medicine 08/04/18 02/04/20 Pcp, Unknown PCP - General 02/05/20 02/06/20 Vipul Duran MD [address] [place] [address] [place] [address] PCP - General Internal Medicine 02/07/20 documented as of this encounter Additional Source Comments The information contained in this document represents components of the legal health record. It is not the complete legal health record.[facility]
--- OUTSIDE RECORDS SUMMARY | 2025-10-17 13:17 | XMS_ITS | Encounter Summary ---
Author Organization [facility] Address [address] [place] [address] [place] [address] Phone Care Team Providers Care Zmt Operator Name Role Phone Pcp, Unknown Primary Care Provider Vipul Sandoval MD Primary Care Provider [phone] Encounter Details Date Type Department Care Team (Late st Contact Info) Description 02/05/2020 Transcribe Orders [facility] Phleb [address] [place] [address] Jad Ibarra MD [address] [place] [address] [email or web address] Severe manic bipolar I disorder with [...] EDT) AMMONIA 63 28 - 80 umol/L [facility] Blood 02/05/2020 10:4 1 AM EDT 02/05/2020 10:43 AM EDT us Jad Ibarra MD LAB BLOOD BKR ORDERABLES Fi nal Result Performing Organization Address City/[facility]/ZIP Co de Phone Number [address] [address] * (ABNORMAL) Valproic acid (02/05/2020 10:41 AM EDT) Pathologist [facility] VALPROIC ACID 115.4(H) 50.0 - 100.0 ug/mL [facility] Blood 02/05/2020 10:4 1 AM EDT 02/05/2020 10:43 AM EDT us Jad Ibarra MD LAB BLOOD BKR ORDERABLES Fi nal Result Performing Organization Address [facility] de Phone Number [address] [address] * (ABNORMAL) CBC and differential (02/05/2020 10:41 AM EDT) [facility] WBC 5.07 4.00 - 11.00 K/uL [facility] Comment:Note Reference Range updates to all CBC and Differential results. RBC 5.04 4.23 - 5.82 M/uL [facility] HGB 15.6 13.4 - 17.5 g/dL [facility] Comment:Note updated Referen ce Ranges for all CBC and Differential results. HCT 43.0 37.0 - 51.0 % [facility] PLT 201 140 - 430 K/uL [facility] MCV 85.3 78.0 - 97.0 fL [facility] MCH 31.0 25.0 - 33.0 pg [facility] MCHC 36.3(H) 32.0 - 36.0 g/dL [facility] RDW 11.5 11.0 - 15.0 % [facility] MPV 9.3 8.4 - 12.8 fl [facility] NRBC 0.00 0 /100 WBCs [facility] ABSOLUTE NRBC 0.00 0 K/uL [facility] DIFF METHOD Auto [facility] NEUTS 38.4(L) 43.0 - 75.0 % [facility] LYMPHS 47.9(H) 18.2 - 47.4 % [facility] MONOS 10.3 4.00 - 11.00 % [facility] EOS 2.6 0.0 - 8.0 % [facility] BASOS 0.6 0.0 - 2.0 % [facility] Granulocytes, immature (%) 0.2 0.0 - 0.9 % [facility] ABSOLUTE NEUTS 1.95 1.80 - 7.70 K/uL [facility] ABSOLUTE LYMPHS 2.43 1.00 - 3.10 K/uL [facility] ABSOLUTE MONOS 0.52 0.20 - 0.80 K/uL [facility] ABSOLUTE EOS 0.13 0.00 - 0.80 K/uL [facility] ABSOLUTE BASOS 0.03 0.00 - 0.09 K/uL [facility] Granulocytes, immature 0.01 0.00 - 0.05 K/uL [facility] Blood 02/05/2020 10:4 1 AM EDT 02/05/2020 10:43 AM EDT us Jad Ibarra MD LAB BLOOD BKR ORDERABLES Fi nal Result [address] [address] * (ABNORMAL) Comprehensive metabolic panel (02/05/2020 10:41 AM EDT) SODIUM 131(L) 133 - 146 mmol/L [facility] POTASSIUM 4.8 3.3 - 5.1 mmol/L [facility] CHLORIDE 91(L) 96 - 108 mmol/L [facility] CO2 31 21 - 35 mmol/L [facility] BUN 12 6 - 19 mg/dL [facility] CREATININE 0.90 0.5 - 1.5 mg/dL [facility] GLUCOSE 89 70 - 99 mg/dL [facility] ALBUMIN 5.0(H) 3.9 - 4.8 g/dL [facility] TOTAL PROTEIN 6.8 6.5 - 8.0 g/dL [facility] CALCIUM 9.5 8.4 - 10.3 mg/dL [facility] ALKALINE PHOSPHATASE 49 39 - 117 U/L [facility] TOTAL BILIRUBIN 1.3(H) 0.0 - 1.2 mg/dL [facility] AST 30 0 - 37 U/L [facility] ALT 43(H) 0 - 40 U/L [facility] GLOBULIN 1.8 1 - 4.8 g/dL [facility] EGFR 109 >59 mL/min/1.7 3m2 [facility] Comment:If patient is black, multiply result by 1.159. Estimated glomerular filtration rate calculated using the CKD-EPI equation. ANION GAP 14 10 - 20 mmol/L [facility] Blood 02/05/2020 10:4 1 AM EDT 02/05/2020 10:43 AM EDT us Jad Ibarra MD LAB BLOOD BKR ORDERABLES Fi nal Result Performing Organization Address City/State/[facility] Co de Phone Number [address] [address] documented in this encounter Visit Diagnoses Diagnosis Severe manic bipolar I disorder with psychotic features- Primary Bipolar I disorder, most recent episode (or current) manic, severe, specified as with psychotic behavior Encounter for long-term (current) use of other medications documented in this encounter Care Teams Zmt Operator Relationship Specialty Start Date End Date Pcp, Unknown PCP - General 02/05/20 02/06/20 Vipul Duran MD [address] [place] [address] [place] [address] PCP - General Internal Medicine 02/07/20 documented as of this encounter Additional Source Comments The information contained in this document represents components of the legal health record. It is not the complete legal health record.[facility]
== END 2025-10-17 11:45 | disposition home or self-care (01) ==
LOC: HO.HMCC 11:16
PROVIDERS: PCP Internal Medicine; Visit Provider Internal Medicine
DX: Z00.00 Encounter for general adult medical examination without abnormal findings (principal)

== ENCOUNTER → 2025-10-17 11:16 | Outpatient (BNVA) | payer OTHER, SELFPAY | PROVIDERS: PCP Internal Medicine; Visit Provider Internal Medicine | DX: Z00.01 Encounter for general adult medical examination with abnormal findings (principal); R73.01 Impaired fasting glucose; R79.89 Other specified abnormal findings of blood chemistry; F31.77 Bipolar disorder, in partial remission, most recent episode mixed; D70.9 Neutropenia, unspecified; K58.9 Irritable bowel syndrome, unspecified | CPT/HCPCS: 99396 ==